=== PATIENT | female | born 1995 | race Caucasian/White ===

== ENCOUNTER 2024-06-10 15:01 | Inpatient (IN) | payer OTHER, SELFPAY ==
--- NOTE | ~2024-06-10 | XR_ITS ---
EXAMINATION: XR CHEST CLINICAL INFORMATION: Screening for metal objects prior to MRI COMPARISON: None available. TECHNIQUE: 2 views of the chest were obtained. FINDINGS: Chest willa catheter projects over the cavoatrial junction, unclear if this is MRI compatible. Lungs are clear. No effusion or pneumothorax. Cardiomediastinal silhouette is within normal limits. XR/XR chest 2V IMPRESSION: Chest willa catheter projects over the cavoatrial junction, unclear if this is MRI compatible.
--- NOTE | ~2024-06-10 | CT_ITS ---
EXAMINATION: CT cervical spine wo IV con, CT head/brain wo IV con CLINICAL INFORMATION: Reason for Exam syncope, head strike COMPARISON: Same-day CT head TECHNIQUE: Contiguous axial imaging was performed from the skull base to vertex without intravenous contrast. Sagittal and coronal reformatted images were obtained. Additional dedicated CT scan of the cervical spine was performed with coronal and sagittal reformations provided. This CT examination was performed using dose optimization techniques as appropriate, variously including the following: * Automated exposure control * Adjustment of mA and/or kV according to patient size (this includes techniques or standardized protocols for targeted exams where dose is matched to indication/reason for exam; i.e. extremities or head) Use of iterative reconstruction technique DLP: 202+612 mGy-cm FINDINGS: CT HEAD: There is no evidence of acute intracranial hemorrhage. No mass-effect or ventricular shift is noted. No acute, territorial loss of george-white differentiation. The ventricles and sulci are appropriate in size and configuration for the patient's stated age. No depressed calvarial fracture. The paranasal sinuses are well-aerated. The mastoid air cells are clear. CT CERVICAL SPINE: Reversal of the normal cervical lordosis which may be positional. No significant spondylolisthesis. Cervical vertebral body heights are maintained. No prevertebral soft tissue swelling. Partially visualized right internal jugular central venous catheter. Diffusely heterogeneous thyroid gland. CT/CT cervical spine wo IV con IMPRESSION: No acute intracranial hemorrhage. No acute, displaced cervical spine fracture.
--- NOTE | ~2024-06-10 | XR_ITS ---
EXAMINATION: XR ABDOMEN KUB CLINICAL INDICATION: screen for metal objects prior to MRI COMPARISON: None available. TECHNIQUE: AP view of the abdomen. FINDINGS: IUD in the central pelvis. The bowel gas pattern is normal with no evidence of ileus or obstruction. No unusual soft tissue calcifications are noted. The bones are unremarkable. XR/XR abdomen 1V IMPRESSION: Unremarkable examination.
--- NOTE | ~2024-06-10 | CT_ITS ---
EXAMINATION: CT HEAD WITHOUT CONTRAST CLINICAL INFORMATION: Altered mental status COMPARISON: None available. TECHNIQUE: Contiguous axial imaging was performed from the skull base to vertex without intravenous administration of contrast. This CT examination was performed using dose optimization techniques as appropriate, variously including the following: *Automated exposure control *Adjustment of mA and/or kV according to patient size (this includes techniques or standardized protocols for targeted exams where dose is matched to indication/reason for exam; i.e. extremities or head) *Use of iterative reconstruction technique DLP: 582 mGy-cm FINDINGS: Ventricles, sulci and cisterns are normal. There is no midline shift, no abnormal intra- or extra- axial fluid accumulation. Virk and white matter differentiation is normal. Bone window images show no evidence of skull fracture. CT/CT head/brain wo IV con IMPRESSION: 1. Normal CT scan of the brain. 2. No intracranial hemorrhage or skull fracture is seen. 3. No evidence of space occupying lesion could be found. 4. The current plain CT scan of the brain shows no diagnostic evidence of acute cerebral infarction.
--- NOTE | ~2024-06-10 | CT_ITS ---
EXAMINATION: CT cervical spine wo IV con, CT head/brain wo IV con CLINICAL INFORMATION: Reason for Exam syncope, head strike COMPARISON: Same-day CT head TECHNIQUE: Contiguous axial imaging was performed from the skull base to vertex without intravenous contrast. Sagittal and coronal reformatted images were obtained. Additional dedicated CT scan of the cervical spine was performed with coronal and sagittal reformations provided. This CT examination was performed using dose optimization techniques as appropriate, variously including the following: * Automated exposure control * Adjustment of mA and/or kV according to patient size (this includes techniques or standardized protocols for targeted exams where dose is matched to indication/reason for exam; i.e. extremities or head) Use of iterative reconstruction technique DLP: 202+612 mGy-cm FINDINGS: CT HEAD: There is no evidence of acute intracranial hemorrhage. No mass-effect or ventricular shift is noted. No acute, territorial loss of george-white differentiation. The ventricles and sulci are appropriate in size and configuration for the patient's stated age. No depressed calvarial fracture. The paranasal sinuses are well-aerated. The mastoid air cells are clear. CT CERVICAL SPINE: Reversal of the normal cervical lordosis which may be positional. No significant spondylolisthesis. Cervical vertebral body heights are maintained. No prevertebral soft tissue swelling. Partially visualized right internal jugular central venous catheter. Diffusely heterogeneous thyroid gland. CT/CT head/brain wo IV con IMPRESSION: No acute intracranial hemorrhage. No acute, displaced cervical spine fracture.
--- NOTE | ~2024-06-10 | MR_ITS ---
EXAMINATION: MR BRAIN WITHOUT CONTRAST CLINICAL INFORMATION: Rule out central autoimmune process causing kristie, psych issues. COMPARISON: None available. TECHNIQUE: MRI of the brain was obtained using routine sequences without contrast. FINDINGS: There is no diffusion restriction. There is no intracranial hemorrhage, acute infarction, mass effect, or edema. Ventricles, sulci, and cisterns are normal in size and configuration for patient age. No shift of midline. There is a 4 mm focus of hemosiderin deposition in the left posterior putamen, with signal characteristics diagnostic for a small cavernous hemangioma. No surrounding edema. There are no white matter abnormalities. Midline structures appear normally formed. The pituitary gland appears normal. Posterior fossa structures appear normal. Cerebellar tonsils are appropriately located. Major flow voids are preserved within the skull base. The globes and orbital contents demonstrate no abnormalities. Paranasal sinuses are clear bilaterally. Nasal septum is midline without spur. The mastoids and tympanic cavities are normally aerated. Extracranial soft tissues demonstrate no abnormalities. No suspicious bone marrow changes are evident. Atlantoaxial joint is normal. MR/MR head/brain wo con IMPRESSION: 1. No evidence of intracranial hemorrhage, acute infarction, mass effect, edema, or extra-axial fluid collection. 2. No white matter abnormalities. 3. 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 There is no surrounding edema. Electronically signed by: Geovanny Cota MD 06/29/2024 03:04 PM EDT
[2024-06-10 15:10] VITALS: BP 111/63; BP 114/72; PULSE 106; PULSE 112; RESP 14; TEMP 36.8; O2SAT 95; O2SAT 98; BMI 22.0
--- NOTE | 2024-06-10 15:19 | PC.NURSE ---
Pt. minimally responsive, staring off. Will not respond to questions other than HI/SI question
--- NOTE | 2024-06-10 15:30 | PC.NURSE ---
Pt.'s mother and father at bedside. Kathrin Krishna also at bedside as sitter. This RN explained to pt.'s mother that we need to change pt. over into hospital scrubs. Pt.'s mother refused, stating that her daughter will not be having a Psych. evaluation. aware
--- NOTE | 2024-06-10 15:58 | ED.GENADULT ---
HPI - General Adult General Chief complaint: Psychiatric Symptoms Stated complaint: AMS Time Seen by Provider: 06/10/24 15:56 Source: patient, family (patient's mother) and EMS Mode of arrival: EMS Limitations: other (patient is acutely psychotic) History of Present Illness ED Provider: Rosie Shirley PA-C HPI narrative: Patient is a 28 year old assigned female at with a history of bipolar disorder presenting to the emergency department today in an acute psychosis. Patient's mother states that the patient has an extensive psychiatric history and has not been compliant with her medications. Patient's mother states that she went to check on the patient and found her acting disoriented. Patient's mother states that she was concerned the patient may have taken too much of some of her medicines and wanted her to be medically cleared. Patient's mother states that the patient has extensive trauma in relation to intuitions and being institutionalized. Patient's mother states that they would like the patient to be medically evaluated and discharged into their care so they may get her back on her medication at home. Patient's mother states that the patient is supposed to be on Zyprexa 5mg BID and has good follow up with her psychiatrist. Relieving factors: none Exacerbating factors: none Related Data Allergies Allergy/AdvReac Type Severity Reaction Status Date / Time No Known Allergies Allergy Verified 06/10/24 15:16 Review of Systems Review of Systems: Yes Other (patient unable to answer ROS secondary to an acute psychosis) Neurologic: Reports behavioral changes Psychiatric: Psychiatric: Reports behavioral changes PMFSH Past Medical History Attestation statement: The following information was validated with the patient. (all information validated with the patient's parents / mother) Source: old records reviewed, obtained from family (patient's mother / parents provided additional history and confirmed the history provided by the patient) and nursing notes reviewed Social History Social History Smoked in Last 30 Days: No Use of substances other than those prescribed or required for medical reasons: No Advance Directives: No Advance Directives Information Provided: No Do you have a plan to hurt others: No Plan Physical Exam ED Vital Signs: Vital Signs - 24 hr 06/10/24 15:10 06/10/24 16:00 06/10/24 18:00 Temperature 98.2 F Pulse Rate 112 H 95 118 H Respiratory Rate 14 18 Blood Pressure 111/63 112/76 121/76 Pulse Oximetry 98 97 97 Oxygen Delivery Method Room Air Room Air Room Air BMI result Body Mass Index 22.0 Const General: cooperative, no acute distress, alert and awake Nutritional Appearance: well nourished Limitations: no limitations HENMT Head: Yes normal to inspection and Yes atraumatic Ears: hearing grossly normal bilaterally and external ears normal General nose exam: Normal external nose present, no nasal discharge noted and no epistaxis Face and sinus: Yes normal facial exam, No abrasion and No laceration Mouth: Normal oral and palatal mucosa present, no drooling and no muffled voice Eyes General: appearance normal, both eyes and all related structures Periorbital: periorbital findings normal Eyelids: Yes eyelids normal Conjunctivae: conjunctivae normal Pupils: Equal, round and reactive pupils present EOM: EOMs intact bilaterally Neck Neck: Yes normal visual inspection, Yes full ROM and Yes no lymphadenopathy Chest Chest palpation & inspection: normal inspection of the chest Resp Effort & Inspection: normal respiratory effort and able to speak in complete sentences GI Inspection: Yes normal to inspection Neuro General: moves all extremities Cranial nerves: Yes Equal, round and reactive pupils present Extrem General: Yes normal to inspection, Yes full ROM and Yes capillary refill normal Psych Appearance: grossly normal Affect: Labile affect present Attitude: Guarded attititude/behavior present Thought process: Circumstantial thought process present and Illogical thought process present Thought content: Derealization present Medications Administered Discontinued Medications Generic Name Dose Route Start Last Admin Trade Name Freq PRN Reason Stop Dose Admin Olanzapine 10 mg 06/10/24 17:48 06/10/24 19:18 Olanzapine 10 Mg Tablet PO 06/10/24 17:49 Not Given ONCE ONE Medical Decision Making Medical Decision Making [facility] Narrative: Patient is a 28 year old assigned female at with a history of bipolar disorder presenting to the emergency department today in an acute psychotic episode. Patient's physical exam was consistent with an acute psychosis. Patient's blood work was unremarkable. Patient's urine showed no acute process. Patient's EKG was unremarkable. I explained my physical exam findings as well as all test results to the patient and the patient's parents. I answered all questions asked by the patient and the patient's parents. I recommended the patient be evaluated by our CARE team and admitted for psychiatric inpatient level of care however, the patient and the patient's parents declined. I had an extensive conversation with the patient and the patient's parents about taking the patient home and getting her restarted on her medications including the risks in them doing this rather than having the patient stabilized on an inpatient unit. The patient's parents verbalized understanding and requested to take the patient home. We attempted to give the patient PO Zyprexa however, she refused to take it and began to escalate rapidly. After extensive discussion with the patient's parents and sister, together, we decided to give the patient IM Zyprexa and Ativan. Patient was given medication and walked to the behavioral health pod. Patient will be evaluated by CARE team and likely kept for inpatient psychiatric stabilization. Differential Diagnosis Differential Diagnoses: The differential diagnosis associated with the presentation includes Acute psychosis Bipolar disorder Medication non-compliance Admission/Observation Consideration of admission/observation: Escalation of care including admission/observation considered Patient will likely be admitted for psychiatric stabilization after CARE evaluation. Lab Data [facility] Lab Attestation statement: I reviewed the patient's lab results. My interpretation of these results are in the [facility] Rationale portion of this note. 06/10/24 16:07 06/10/24 16:07 Labs: Lab Results 06/10/24 06/10/24 Range/Units 16:07 17:35 WBC 9.7 (4.8-10.8) X10*3/uL RBC 4.44 (4.20-5.50) X10*6/uL Hgb 13.5 (12.0-16.0) g/dl Hct 39.6 (37.0-47.0) % MCV 89.2 (80.0-98.0) fL MCH 30.4 (27.0-33.0) pg MCHC 34.1 (31.0-35.0) g/dl RDW 12.6 (11.0-16.0) % Plt Count 286 (160-400) X10*3/uL MPV 10.3 (9.4-12.3) fL Immature Gran % (Auto) 0.4 (0.0-0.4) % Neut % (Auto) 72.8 (45-73) % Lymph % (Auto) 17.9 L (20-40) % [place] % (Auto) 7.0 (2-11) % Eos % (Auto) 1.5 (0-4) % Baso % (Auto) 0.4 (0-2) % Lymph # (Auto) 1.7 (1.2-4.9) X10*3/uL [place] # (Auto) 0.7 (0.1-1.2) X10*3/uL Eos # (Auto) 0.2 (0.0-0.4) X10*3/uL Baso # (Auto) 0.0 (0.0-0.2) X10*3/uL Abs Immat Gran (auto) 0.04 H (0.00-0.03) X10*3/uL Absolute Neuts (auto) 7.1 (2.0-8.3) x10*3/uL Absolute Nucleated RBC 0.000 (0.0-0.012) X10*3/uL Nucleated RBC % (auto) 0.0 (0.0-0.2) /100WBC Sodium 143 (135-145) mmol/L Potassium 4.4 (3.3-5.1) mmol/L Chloride 108 (96-108) mmol/L Carbon Dioxide 27 (22-29) mmol/L Anion Gap 12 (12-20) BUN 13 (9-16) mg/dL Creatinine 0.66 (0.5-1.4) mg/dL Estim Creat Clear Calc 81.2 Estimated GFR > 60 Random Glucose 129 H (60-115) mg/dL Calcium 8.9 (8.4-10.2) mg/dL Magnesium 2.3 (1.6-2.6) mg/dL Total Bilirubin 0.3 (0.0-1.0) mg/dL AST 43 H (5-31) U/L ALT 90 H (0-31) U/L Alkaline Phosphatase 94 (39-117) U/L Total Creatine Kinase 29 (26-140) U/L Total Protein 6.6 (6.5-8.0) g/dL Albumin 3.9 (3.5-5.0) g/dL TSH < 0.01 L (0.32-4.0) uIU/mL Free T4 1.17 (0.71-1.85) ng/dL Beta HCG, Quant < 2 mIU/mL Urine Opiates Screen Not Detected (Not Detect) Ur Buprenorphine Scrn Not Detected (Not Detect) ng/mL Ur Oxycodone Screen Not Detected (Not Detect) ng/mL Urine Methadone Screen Not Detected (Not Detect) ng/mL Urine Fentanyl Screen Not Detected (Not Detect) Ur Barbiturates Screen Not Detected (Not Detect) Ur Phencyclidine Scrn Not Detected (Not Detect) Ur Amphetamines Screen Not Detected (Not Detect) U Benzodiazepines Scrn Not Detected (Not Detect) Urine Cocaine Screen Not Detected (Not Detect) U Marijuana (THC) Screen Not Detected (Not Detect) COVID-19 (JULITA) Negative (Negative) COVID-19 Clin Com See Note Independent Interpretation I performed an independent interpretation of an: EKG Interpretation: Vent. Rate: 092 BPM Atrial Rate: 092 BPM P-R Int: 122 ms QRS Dur: 088 ms QT Int: 344 ms P-R-T Axes: 056 044 036 degrees QTc Int: 425 ms Normal sinus rhythm Normal ECG 06/10/24 1636 Independent Historian Clinical information obtained from an independent historian. History obtained from or confirmed by: Parent (patient's parents and sister provided additional history) and EMS (EMS provided additional history) Critical Care Time Critical Care Time Critical Care Time: Yes Total Critical Care Time: 48 Attestation: I spent 48 minutes of Critical Care Time with this patient. This does not include time spent on separately reported billable procedures. Discharge Plan Discharge Clinical Impression: Bipolar disorder, Acute psychosis Patient Disposition: Still a Patient Print Language: Romansh
[2024-06-10 16:00] VITALS: BP 112/76; PULSE 95; O2SAT 97
--- NOTE | 2024-06-10 16:08 | PC.NURSE ---
Pt. with parents and sitter at bedside. She is still not answering questions for the most part. Occasionally nods yes/no.
[2024-06-10 16:12] LABS: MANUAL DIFF FLAG NO
[2024-06-10 16:19] LABS: Basophils Percent Auto 0.4 % (0-2); Eosinophils Absolute Auto 0.2 X10*3/uL (0.0-0.4); Eosinophils Percent Auto 1.5 % (0-4); Hematocrit 39.6 % (37.0-47.0); Hemoglobin 13.5 g/dl (12.0-16.0); Imm Gran Abs Auto 0.04 X10*3/uL (0.00-0.03); Imm Gran Pct Auto 0.4 % (0.0-0.4); Lymphocytes Absolute Auto 1.7 X10*3/uL (1.2-4.9); Lymphocytes Percent Auto 17.9 % (20-40); Mean Corpuscular HGB Conc 34.1 g/dl (31.0-35.0); Mean Corpuscular Hemoglobin 30.4 pg (27.0-33.0); Mean Corpuscular Volume 89.2 fL (80.0-98.0); Mean Platelet Volume 10.3 fL (9.4-12.3); Monocytes Absolute Auto 0.7 X10*3/uL (0.1-1.2); Neutrophils Absolute Auto 7.1 x10*3/uL (2.0-8.3); Neutrophils Percent Auto 72.8 % (45-73); Platelet Count 286 X10*3/uL (160-400); Red Blood Count 4.44 X10*6/uL (4.20-5.50); Red Cell Distribution Width 12.6 % (11.0-16.0); White Blood Count 9.7 X10*3/uL (4.8-10.8)
[2024-06-10 16:25] LABS: COVID-19 Test Negative (Negative); IDNOW Serial# 58CA691E
[2024-06-10 16:39] LABS: Anion Gap 12 (12-20)
[2024-06-10 16:43] LABS: Alanine Aminotransferase 90 U/L (0-31); Albumin Level 3.9 g/dL (3.5-5.0); Alkaline Phosphatase 94 U/L (39-117); Aspartate Amino Transferase 43 U/L (5-31); Bilirubin Total 0.3 mg/dL (0.0-1.0); Blood Urea Nitrogen 13 mg/dL (9-16); Calcium 8.9 mg/dL (8.4-10.2); Carbon Dioxide 27 mmol/L (22-29); Chloride 108 mmol/L (96-108); Creatinine Clr Calc Pharmacy 81.2; Estimated Glomerular Filt Rate > 60; Glucose Random 129 mg/dL (60-115); Magnesium 2.3 mg/dL (1.6-2.6); Potassium 4.4 mmol/L (3.3-5.1); Sodium 143 mmol/L (135-145); Total Protein 6.6 g/dL (6.5-8.0)
--- NOTE | 2024-06-10 16:44 | PC.NURSE ---
EKG done at 16:36 - showed to Edi Shirley PA
[2024-06-10 17:04] LABS: HCG Quantitative < 2 mIU/mL; TSH reflex Free T4 < 0.01 uIU/mL (0.32-4.0)
[2024-06-10 17:34] LABS: Free T4 (Free Thyroxine) 1.17 ng/dL (0.71-1.85)
[2024-06-10 17:53] LABS: Amphetamine Screen Urine Not Detected (Not Detect); Barbiturates, Urine Not Detected (Not Detect); Benzodiazepines Screen Urine Not Detected (Not Detect); Buprenorphine Scr Not Detected (Not Detect); Cannabinoid Screen Urine Not Detected (Not Detect); Cocaine Screen Urine Not Detected (Not Detect); Fentanyl, urine Not Detected (Not Detect); Methadone Screen, Urine Not Detected (Not Detect); Opiate Screen Urine Not Detected (Not Detect); Oxycodone Screen Urine Not Detected (Not Detect); Phencyclidine Screen Urine Not Detected (Not Detect)
[2024-06-10 18:00] VITALS: BP 121/76; PULSE 118; RESP 18; O2SAT 97
--- NOTE | 2024-06-10 18:08 | ECG_ITS ---
Test Reason : tachycardia Blood Pressure : / mmHG Vent. Rate : 092 BPM Atrial Rate : 092 BPM P-R Int : 122 ms QRS Dur : 088 ms QT Int : 344 ms P-R-T Axes : 056 044 036 degrees QTc Int : 425 ms Normal sinus rhythm Normal ECG No previous ECGs available Referred By: Rosie Shirley Electronically Signed By:NIRALI SPARKS MD
--- NOTE | 2024-06-10 18:30 | PC.NURSE ---
Pt. will not take PO Zyprexa. Parents and PA at bedside. Continues with delusions. Pt. is on the phone with her sister to try to calm her down, and has been for appx. 45 mins.
--- NOTE | 2024-06-10 19:12 | PC.NURSE ---
Pt. would not take PO Zyprexa after appx. 45 minutes of trying. Pt. suddenly had outburst, lept over her bedrail and backed herself into corner. Began screaming at the top of her lungs about satan. Completely unable to be redirected. Per verbal orders of LAI Barbosa, 2mg of IM Ativan and 5mg of IM Zyprexa at 18:36 and OK to hold pt. for injections per PA verbal because she is thrashing, kicking, screaming. Security, multiple RNs, ED technicians, PA at bedside. Staff remained at bedside with pt. constantly until transfer to pod. Unable to get updated VS because pt. was too aggressive and thrashing. After medication administered, pt. very slightly calmed down but continued to try to bolt and hit staff. Pt. threw herself down to ground attempting to crawl under bed. older worker specialist Genevieve bunn and pt. then moved to pod. Pt.'s IV access removed and changed over into scrubs immediately upon arrival to pod.
--- NOTE | 2024-06-10 19:45 | PC.NURSE ---
patient slumbering in room presently d/t recent im medications, father visiting (from [place]) mother in waiting room, patient remains at rest presentlty.
--- NOTE | 2024-06-10 20:39 | MHC.CARE ---
[facility] met with patient's parents per request of LAI Polanco. Parents explained that they had arrived from their home in [place] with the intention of assisting patient with packing her things and moving back home. Patient currently resides in [place] and has been attending graduate school here. Mother notes patient has been having extensive difficulties/changes recently, particularly after receiving an Autism diagnosis. Patient recently made the decision to disenroll from her PsyD Program due to inability to manage her studies effectively. Parents believe this was a major precipitant factor in her recent non-compliance with psychiatric medications and subsequent and significant decompensation leading to her current acute psychosis. Once parents arrived here, they recognized patient was in crisis and they proceeded to the ED for evaluation and treatment. It is noted that patient has an extensive psychiatric history with some associated institutional trauma resultant from one of those admissions. Mother is very fearful of patient being re-traumatized by an [facility] admission and is very hesitant to see patient admitted to the hospital. [facility] provided active listening, encouragement, and support to parents. Contact information: Patient's mother: Carley Zhou [phone] Patient's Father:Boston Chan [phone] Pateint's Psychiatrist: Dr. Johanny Mireles [phone] She has been treating patient since she was a teenager.
[2024-06-11] VITALS (7 sets, daily range): BP systolic 105–131; BP diastolic 60–83; PULSE 90–135; RESP 15–20; TEMP 36.8–37.6; O2SAT 95–98; BMI 26.2
--- NOTE | 2024-06-11 | ECG_ITS ---
Test Reason : sycnope Blood Pressure : / mmHG Vent. Rate : 121 BPM Atrial Rate : 121 BPM P-R Int : 128 ms QRS Dur : 088 ms QT Int : 308 ms P-R-T Axes : 051 035 030 degrees QTc Int : 437 ms Sinus tachycardia Otherwise normal ECG When compared with ECG of 10-JUN-2024 16:36, No significant change was found Referred By: Rai Otoole Electronically Signed By:NIRALI SPARKS MD
--- NOTE | 2024-06-11 05:30 | PC.NURSE ---
Pt sleeping at the bedside. No apparent distress noted. Breaths are even regular and unlabored with equal chest rises. Monitoring is ongoing.
--- NOTE | 2024-06-11 08:21 | PHA.MEDREC ---
Pharmacy Consult ? Medication Reconciliation Pharmacy has completed the medication reconciliation. Pharmacy attempted med rec at request of provider from evening prior. Patient is AMS. Spoke to AM provider. Will contact pharmacy when patients family arrives.
[2024-06-11] MEDS: OLANZapine 5 MG TABLET PO ×2 (08:34→20:40)
--- NOTE | 2024-06-11 08:58 | PC.NURSE ---
pt awoke at approx 0730. has been very paranoid and becoming more and more agitated, pt states that the navy seals have switched her body, pt has been yelling about this since she awoke, pt initially refused her am zyprexa but eventually took it from Gianfranco Bennett from CARE team in with pt now for assessment
[2024-06-11] MEDS: LORazepam 2 MG/ML VIAL IM (09:30)
[2024-06-11] MEDS: Haloperidol Lactate 5 MG/ML VIAL IM (09:30)
[2024-06-11] MEDS: diphenhydrAMINE HCL 50 MG/ML VIAL IM (09:30)
[2024-06-11 12:49] LABS: Appearance Urine Turbid; Color Urine Yellow; Glucose Urine UA Negative (Negative); Leukocyte Esterase Urine Negative (Negative); Nitrite Urine Negative (Negative); PH 7.5 (5.0-9.0); Urine Blood Negative (Negative); Urine Ketones Negative (Negative); Urine Protein Negative (Neg-Trace)
--- NOTE | 2024-06-11 12:55 | PC.NURSE ---
at 0930 pt medicated with IM ativan, haldol and benadryl. pt had become increasingly agitated and delusional throughout the morning. pt was held in sitting position by security and given the im meds, pt was stating that the [employer] seals had switched her body and was afraid that someone would come and hurt her. approx 15 min after the meds, the pt was laying in her bed queitly and soon after, fell asleep. mother and father came to visit at approx 1000 and have been with the pt since. at [address] and currently awaiting results. report given to m3
[2024-06-11] MEDS: LORazepam 1 MG TABLET PO (15:43)
[2024-06-11] MEDS: OLANZapine 10 MG TABLET PO (15:47)
--- NOTE | 2024-06-11 16:17 | P.HPPS_ITS ---
HPI Date of Service: 06/11/24 Chief Complaint: kristie/psychosis HPI Narrative: pt was BIBA at the request of her parents, who had come out to visit her from [place] and found her in a concerning mental status, described as disoriented. per parents, pt has substantial psych Hx and was suspected to have stopped taking her medications. mother reports decline over the past 8 months including weight loss of 40 pounds, which coincides with ASD Dx pt received. pt has steadily withdrawn from family and friends, per mother. on interview with CARE team, pt was agitated, labile, paranoid, pressured, and disorganized. she was apparently extemporizing regarding a global conspiracy involving [employer] in which they swap people out, a la Capgras Syndrome. she also believes she has a brain tumor. poor ADLs noted, not having bathed in about one month. per mother, there is no precedent for this presentation. parents had come to pack her up and take her back home with them. parents identify autism Dx leading to demoralization and cessation of medication compliance, leading to inability to manage studies, leading to withdrawal from degree program, leading to further deterioration in mental status to the present. interview with MD on unit limited due to pt's inability to attend. pt was generally disorganized spontaneously but was able to answer some questions as per MSE. sample: my dad and sister are missing. i thought your father was here 5 minutes ago? my other father. no, he's not missing. but my sister is. none of this is real. another sample: what medications were you taking? over a million years. pt appeared to agree to plan to restart prior regimen, asked for something to help her go to sleep and started crying, saying she was feeling very anxious. Past Psychiatric History: Dx Hx: Bipolar Disorder, Autism hosps: h/o. first at 16 yo and MRE around 2019. SA: none SIB: none reported HIB: none reported outpt: h/o, extensive. starting in 8th grade with Dr. Mireles ([phone]). h/o therapy, most recently in [place] 8-9 months ago. Medical Evaluation Reviewed: Yes PMFSH Narrative: per mother: 5 auto-immune diseases Family History: father - bipolar disorder Social History: born and raised by both parents in [place], [place]. 1 sister who is 2 years younger. has bachelor's and masters' degrees, was enrolled in PsyD program until withdrawing recently. lives alone in a house in [place], [place]. never , no children. 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 landlords have asked pt to leave. parents have come to help her move back to their home in [place]. Substance History: none Trauma History: reported h/o other pts entering her room in the night during prior hospitalization, one episode of another patient getting into bed with her. Diagnostics Vital Signs (24Hr): Vital Signs - 24 hr 06/10/24 18:00 06/11/24 06:13 06/11/24 07:51 Temperature 98.4 F 98.2 F Pulse Rate 118 H 90 122 H Respiratory Rate 18 15 20 Blood Pressure 121/76 110/72 115/76 Pulse Oximetry 97 98 96 Oxygen Delivery Method Room Air Room Air Room Air 06/11/24 13:02 Temperature Pulse Rate 107 H Respiratory Rate 16 Blood Pressure 111/60 Pulse Oximetry 98 Oxygen Delivery Method Room Air BMI result Body Mass Index 22.0 Labs 06/10/24 16:07 06/10/24 16:07 Labs: Laboratory Results - last 48 hr 06/10/24 06/10/24 16:07 17:35 WBC 9.7 RBC 4.44 Hgb 13.5 Hct 39.6 MCV 89.2 MCH 30.4 MCHC 34.1 RDW 12.6 Plt Count 286 MPV 10.3 Immature Gran % (Auto) 0.4 Neut % (Auto) 72.8 Lymph % (Auto) 17.9 L [place] % (Auto) 7.0 Eos % (Auto) 1.5 Baso % (Auto) 0.4 Lymph # (Auto) 1.7 [place] # (Auto) 0.7 Eos # (Auto) 0.2 Baso # (Auto) 0.0 Abs Immat Gran (auto) 0.04 H Absolute Neuts (auto) 7.1 Absolute Nucleated RBC 0.000 Nucleated RBC % (auto) 0.0 Sodium 143 Potassium 4.4 Chloride 108 Carbon Dioxide 27 Anion Gap 12 BUN 13 Creatinine 0.66 Estim Creat Clear Calc 81.2 Estimated GFR > 60 Random Glucose 129 H Calcium 8.9 Magnesium 2.3 Total Bilirubin 0.3 AST 43 H ALT 90 H Alkaline Phosphatase 94 Total Creatine Kinase 29 Total Protein 6.6 Albumin 3.9 TSH < 0.01 L Free T4 1.17 Beta HCG, Quant < 2 Urine Color Yellow Urine Appearance Turbid Urine pH 7.5 Ur Specific [place] 1.010 Urine Protein Negative Urine Glucose (UA) Negative Urine Ketones Negative Urine Blood Negative Urine Nitrite Negative Ur Leukocyte Esterase Negative Urine Opiates Screen Not Detected Ur Buprenorphine Scrn Not Detected Ur Oxycodone Screen Not Detected Urine Methadone Screen Not Detected Urine Fentanyl Screen Not Detected Ur Barbiturates Screen Not Detected Ur Phencyclidine Scrn Not Detected Ur Amphetamines Screen Not Detected U Benzodiazepines Scrn Not Detected Urine Cocaine Screen Not Detected U Marijuana (THC) Screen Not Detected COVID-19 (JULITA) Negative COVID-19 Clin Com See Note Imaging Radiology Impressions: ITS Impressions Head CT 06/11/24 11:34 IMPRESSION: 1. Normal CT scan of the brain. 2. No intracranial hemorrhage or skull fracture is seen. 3. No evidence of space occupying lesion could be found. 4. The current plain CT scan of the brain shows no diagnostic evidence of acute cerebral infarction. Meds/Allergies Allergies Allergies Allergy/AdvReac Type Severity Reaction Status Date / Time No Known Allergies Allergy Verified 06/10/24 15:16 Mental Status Exam Mental Status Exam Narrative: dressed in [facility] [employer]. disheveled. cooperative to her ability. standing throughout, talking to the unseen. speech spontaneous, not generally related present context, incr amount, nml rate, nml loudness, decr latency. thoughts distracted, related to AH. able to answer some questions with delay and difficulty, but such answers linear. affect constricted, tearful. mood agitated. panicked. panicked into oblivion all the time. SI a little bit, buti won't do anything. denies HI, VH. endorses AH. Assessment & Plan Assessment & Plan (1) Acute psychosis: Status: Acute Code(s): F23 - Brief psychotic disorder (2) Bipolar disorder: Status: Acute Code(s): F31.9 - Bipolar disorder, unspecified Plan restart previous med regimen, assuming it is reasonable and if collateral bears out that it was effective. zyprexa and ativan for now. Patient educated on: diagnosis and medication risk/benefits Reason for continued inpatient stay Substantial Risk for: harm to self and inability to function Statement Statement: I have reviewed the history and physical and performed a pertinent examination on my patient. No changes have occurred unless specified. If the History and Physical was not performed prior to admission, the Hospitalist's service will be consulted for completing the admission physical. Time Spent With Patient Time: Total time managing care of this patient today _55___ minutes.
--- NOTE | 2024-06-11 16:56 | PM.EVENT ---
Event Note Date of Service: 06/11/24 Event Note: CLAIMS CONFIGURATION ANALYST called for witnessed syncope, patient felt lightheaded, hit head, ?forehead. brief LOC. denies pain, dazed but alert, no gross trauma, vitals stable, poc wnl. plan for ekg, ct head, ct cervical spine. Time Spent With Patient Time: Total time managing care of this patient today ____ minutes.
--- NOTE | 2024-06-11 17:44 | PC.ADMIT ---
Addendum entered by Joanna Ortega RN 06/11/24 18:02: Nursing note continued: Patient unable to be assessed fully at this time due to current mental status. Patient believes she has a brain tumor . Thoughts are disorganized and delusional. Observed responding to internal stimuli. Speech is soft in tome with decreased volume. Cooperative with skin check, small scratches observed on neck otherwise unremarkable. NKA. Per crisis evaluation hx of Crohn's, and 5 autoimmune disorders. TOX screen negative. COVID negative. History of Autism, BiPolar disorder. Patient with history of mental illness, inpatient and outpatient therapy. Patient oriented to unit. See crisis evaluation for further details. Original Note: Nursing admission note: 28 year old female Dx: Unspecified psychosis. Arrived to unit on section 12a. Referred for treatment by CARE team. Patient disoriented to date. Limited insight into admission. patient engages minimally. States I am not who you think I am . Endorses feeling anxious, scared. Reports at times she sleeps a lot .States I need to go find my family. They're going to be taking the wrong child. I need to find my sister Iram. Joie is not real . Per crisis evaluation Patient arrived to ED via ambulance with her parents. Patient's mother found her acting in a disoriented fashion. ,
[2024-06-11 17:46] LABS: Glucose, Whole Blood 127 mg/dL (60-115)
--- NOTE | 2024-06-11 19:40 | PC.NURSE ---
At 1648 pt was on the patient phone speaking to family member and per peer she fell to floor with head strike. Rapid response called. temp 37.6 c HR 120 BP 109/77 POC 127 O2 sat 95% room air. She did not immediately respond to her name or nurses' touch. She was transported to CT scan per MD order with Neck brace in place, placed on 1:[address] scan results. On return from CT patient was ambulating without difficulty and denied injury.
[2024-06-11] MEDS: Lithium Carbonate ER 450 MG TABLET.ER 900 MG PO (20:40)
[2024-06-11] MEDS: hydrOXYzine HCL 25 MG TABLET PO (20:41)
[2024-06-12 00:05] VITALS: RESP 16
[2024-06-12 04:00] VITALS: RESP 16
[2024-06-12 08:00] VITALS: BP 129/81; PULSE 92; TEMP 37; O2SAT 97
[2024-06-12 08:24] LABS: Hemoglobin 15.4 g/dl (12.0-16.0); Mean Corpuscular HGB Conc 34.2 g/dl (31.0-35.0); Mean Corpuscular Hemoglobin 30.3 pg (27.0-33.0); Mean Corpuscular Volume 88.6 fL (80.0-98.0); Platelet Count 316 X10*3/uL (160-400); Red Blood Count 5.08 X10*6/uL (4.20-5.50); Red Cell Distribution Width 12.4 % (11.0-16.0); White Blood Count 8.4 X10*3/uL (4.8-10.8)
[2024-06-12 08:34] LABS: Estimated Average Glucose 85 mg/dL; Hemoglobin A1c % 4.6 % (<6.0)
[2024-06-12 08:43] LABS: Alanine Aminotransferase 100 U/L (0-31); Albumin Level 4.3 g/dL (3.5-5.0); Alkaline Phosphatase 95 U/L (39-117); Anion Gap 13 (12-20); Aspartate Amino Transferase 50 U/L (5-31); Bilirubin Direct 0.1 mg/dL (0.0-0.5); Bilirubin Total 0.5 mg/dL (0.0-1.0); Blood Urea Nitrogen 15 mg/dL (9-16); Calcium 10.5 mg/dL (8.4-10.2); Carbon Dioxide 28 mmol/L (22-29); Chloride 105 mmol/L (96-108); Creatinine Clr Calc Pharmacy 83.7; Estimated Glomerular Filt Rate > 60; Glucose Fasting 100 mg/dL (60-99); Magnesium 2.3 mg/dL (1.6-2.6); Potassium 4.4 mmol/L (3.3-5.1); Sodium 142 mmol/L (135-145); Total Protein 7.6 g/dL (6.5-8.0)
[2024-06-12 08:46] LABS: Cholesterol 213 mg/dL (<200); HDL Cholesterol 75 mg/dL (>40); LDL Cholesterol Calculated 122 mg/dL (<100); Triglycerides 80 mg/dL (<150)
[2024-06-12 09:02] LABS: HBS Num1 3.41 mIU/mL (0-7.99); HBc Num1 0.11 S/CO (0.00-0.79); HBsAGNum1 0.26 S/CO (0.00-0.99); HIV AB/AG Nonreactive (Nonreactive); HIV Num 1 0.06 S/CO (0.00-0.99); Hepatitis B Core Antibody Nonreactive (Nonreactive); Hepatitis B Surface Antigen Negative (Negative); ~HepC Num1 0.12 S/CO (0.00-0.79); ~Hepatitis B Surface Antibody NONREACTIVE (Nonreactive); ~Hepatitis C Antibody Nonreactive (Nonreactive)
[2024-06-12 09:03] LABS: Free T4 (Free Thyroxine) 1.22 ng/dL (0.71-1.85); Thyroid Stimulating Hormone < 0.01 uIU/mL (0.32-4.0)
[2024-06-12 09:12] LABS: Folate 9.6 ng/mL (> or = 4.0); Vitamin B12 318 pg/mL (200-900)
[2024-06-12] MEDS: OLANZapine ODT 10 MG TAB.RAPDIS 5 MG TRANSLINGU ×2 (11:27→23:56)
[2024-06-12] MEDS: LORazepam 1 MG TABLET PO ×2 (11:28→23:56)
--- NOTE | 2024-06-12 15:08 | P.PNPSI_ITS ---
Subjective Subjective Date of Service: 06/12/24 Reason For Visit: kristie/psychosis Interim History: met with pt individually, met with parents as well. pt remains pressured, RIS, disorganized. per staff, pt fell last night while on the phone. CT head NEG. appeared to have slept overnight. information gleaned from meeting with parents: pt has medical diagnoses as follows: Crohn's Dz, Lawrence's Thyroiditis, Auto- Immune Hepatitis, Reynaud Syndrome, SLE-like disorder, POTS. her auto-immune D/O Dxs started at 15-16 yo and she was on remicaid for about 10 years from that time until about 25 yo. she has been on other immunologics since until recently stopping all medications in the past several months. pt's pharmacy is [facility] in [place]. per collateral from pharmacy, pt should be on the following: zyprexa 5 mg BID mycophenolate 1000 mg BID lithium 600 mg BID aimovig 140mg/ml, 1 ml Q28 days SC synthroid 37.5 mcg daily fludrocortisone 0.1 mg daily metoprolol ER 50 mg daily Mental Status Exam Mental Status Exam Narrative: dressed in [facility]. disheveled. cooperative to her ability. standing throughout, talking to the unseen. speech spontaneous, not generally related present context, incr amount, incr rate, variable loudness, decr latency. thoughts distracted, related to AH. able to answer some questions with delay and difficulty, but such answers linear. affect constricted, hyper-intense. mood not assessed. no SI/HI/AVH expressed. Diagnostics Vital Signs (24Hr): Vital Signs - 24 hr 06/11/24 18:24 06/11/24 18:40 06/11/24 20:00 Temperature 99.6 F 98.6 F 98.8 F Pulse Rate 120 H 97 117 H Respiratory Rate 16 16 Blood Pressure 109/77 109/67 131/83 Pulse Oximetry 95 97 96 Oxygen Delivery Method Room Air Room Air 06/12/24 00:05 06/12/24 04:00 06/12/24 08:00 Temperature 98.6 F Pulse Rate 92 Respiratory Rate 16 16 Blood Pressure 129/81 Pulse Oximetry 97 Oxygen Delivery Method Room Air BMI result Body Mass Index 26.2 Labs 06/12/24 08:03 06/12/24 08:03 Labs: Laboratory Results - last 48 hr 06/10/24 06/10/24 06/11/24 16:07 17:35 16:50 WBC 9.7 RBC 4.44 Hgb 13.5 Hct 39.6 MCV 89.2 MCH 30.4 MCHC 34.1 RDW 12.6 Plt Count 286 MPV 10.3 Immature Gran % (Auto) 0.4 Neut % (Auto) 72.8 Lymph % (Auto) 17.9 L [place] % (Auto) 7.0 Eos % (Auto) 1.5 Baso % (Auto) 0.4 Lymph # (Auto) 1.7 [place] # (Auto) 0.7 Eos # (Auto) 0.2 Baso # (Auto) 0.0 Abs Immat Gran (auto) 0.04 H Absolute Neuts (auto) 7.1 Absolute Nucleated RBC 0.000 Nucleated RBC % (auto) 0.0 Sodium 143 Potassium 4.4 Chloride 108 Carbon Dioxide 27 Anion Gap 12 BUN 13 Creatinine 0.66 Estim Creat Clear Calc 81.2 Estimated GFR > 60 POC Glucose 127 H Random Glucose 129 H Fasting Glucose Estimat Average Glucose Hemoglobin A1c % Calcium 8.9 Magnesium 2.3 Total Bilirubin 0.3 Direct Bilirubin AST 43 H ALT 90 H Alkaline Phosphatase 94 Total Creatine Kinase 29 Total Protein 6.6 Albumin 3.9 Triglycerides Cholesterol LDL Cholesterol, Calc HDL Cholesterol Vitamin B12 Folate TSH < 0.01 L Free T4 1.17 Beta HCG, Quant < 2 Urine Color Yellow Urine Appearance Turbid Urine pH 7.5 Ur Specific [place] 1.010 Urine Protein Negative Urine Glucose (UA) Negative Urine Ketones Negative Urine Blood Negative Urine Nitrite Negative Ur Leukocyte Esterase Negative Urine Opiates Screen Not Detected Ur Buprenorphine Scrn Not Detected Ur Oxycodone Screen Not Detected Urine Methadone Screen Not Detected Urine Fentanyl Screen Not Detected Ur Barbiturates Screen Not Detected Ur Phencyclidine Scrn Not Detected Ur Amphetamines Screen Not Detected U Benzodiazepines Scrn Not Detected Urine Cocaine Screen Not Detected U Marijuana (THC) Screen Not Detected COVID-19 (JULITA) Negative COVID-19 Clin Com See Note Hep Bs Antigen Hep Bs Antibody Hep B Core Total Ab Hepatitis C Ab (EIA) HIV 1&2 Ab/P24 Ag 4thGn 06/12/24 08:03 WBC 8.4 RBC 5.08 Hgb 15.4 Hct 45.0 MCV 88.6 MCH 30.3 MCHC 34.2 RDW 12.4 Plt Count 316 MPV 10.0 Immature Gran % (Auto) Neut % (Auto) Lymph % (Auto) [place] % (Auto) Eos % (Auto) Baso % (Auto) Lymph # (Auto) [place] # (Auto) Eos # (Auto) Baso # (Auto) Abs Immat Gran (auto) Absolute Neuts (auto) Absolute Nucleated RBC 0.000 Nucleated RBC % (auto) 0.0 Sodium 142 Potassium 4.4 Chloride 105 Carbon Dioxide 28 Anion Gap 13 BUN 15 Creatinine 0.74 Estim Creat Clear Calc 83.7 Estimated GFR > 60 POC Glucose Random Glucose Fasting Glucose 100 H Estimat Average Glucose 85 Hemoglobin A1c % 4.6 Calcium 10.5 H D Magnesium 2.3 Total Bilirubin 0.5 Direct Bilirubin 0.1 AST 50 H ALT 100 H Alkaline Phosphatase 95 Total Creatine Kinase Total Protein 7.6 Albumin 4.3 Triglycerides 80 Cholesterol 213 H LDL Cholesterol, Calc 122 H HDL Cholesterol 75 Vitamin B12 318 Folate 9.6 TSH < 0.01 L Free T4 1.22 Beta HCG, Quant Urine Color Urine Appearance Urine pH Ur Specific [place] Urine Protein Urine Glucose (UA) Urine Ketones Urine Blood Urine Nitrite Ur Leukocyte Esterase Urine Opiates Screen Ur Buprenorphine Scrn Ur Oxycodone Screen Urine Methadone Screen Urine Fentanyl Screen Ur Barbiturates Screen Ur Phencyclidine Scrn Ur Amphetamines Screen U Benzodiazepines Scrn Urine Cocaine Screen U Marijuana (THC) Screen COVID-19 (JULITA) COVID-19 Clin Com Hep Bs Antigen Negative Hep Bs Antibody NONREACTIVE Hep B Core Total Ab Nonreactive Hepatitis C Ab (EIA) Nonreactive HIV 1&2 Ab/P24 Ag 4thGn Nonreactive Imaging Radiology Impressions: ITS Impressions Head CT 06/11/24 11:34 IMPRESSION: 1. Normal CT scan of the brain. 2. No intracranial hemorrhage or skull fracture is seen. 3. No evidence of space occupying lesion could be found. 4. The current plain CT scan of the brain shows no diagnostic evidence of acute cerebral infarction. Cervical Spine CT 06/11/24 17:25 IMPRESSION: No acute intracranial hemorrhage. No acute, displaced cervical spine fracture. Head CT 06/11/24 17:25 IMPRESSION: No acute intracranial hemorrhage. No acute, displaced cervical spine fracture. Medications Medications Current Medications Acetaminophen (Acetaminophen 325 Mg Tablet) 650 mg PO Q6H PRN PRN Reason: Headache/Pain Mild Scale (1-3) Al Hydroxide/Mg Hydroxide (Magnesium Hydrox/Alum Hydrox 30 Ml Oral.Susp) 30 ml PO Q6H PRN PRN Reason: Heartburn/Nausea Fludrocortisone Acetate (Fludrocortisone Acetate 0.1 Mg Tablet) 0.1 mg PO QAM [facility] Hydroxyzine HCl (Hydroxyzine Hcl 25 Mg Tablet) 25 mg PO Q6H PRN PRN Reason: Anxiety Last Admin: 06/11/24 20:41 Dose: 25 mg Levothyroxine Sodium (Levothyroxine Sodium 25 Mcg Tablet) 25 mcg PO DAILY@0600 [facility] [employer] Carbonate ([employer] Carbonate Er 300 Mg Tablet.Er) 600 mg PO BID [facility] Lorazepam (Lorazepam 1 Mg Tablet) 1 mg PO Q4H PRN PRN Reason: agitation Last Admin: 06/12/24 11:28 Dose: 1 mg Magnesium Hydroxide (Milk Of Magnesia 30 Ml Oral.Susp) 30 ml PO DAILY PRN PRN Reason: Constipation Metoprolol Succinate (Metoprolol Succinate Er 25 Mg Tab.Er.24h) 25 mg PO DAILY [facility]; Protocol Mycophenolate Mofetil (Mycophenolate Mofetil 250 Mg Capsule) 1,000 mg PO BID [facility] Nicotine Polacrilex (Nicotine Polacrilex 2 Mg Gum) 4 mg BUCCAL Q2H PRN PRN Reason: Nicotine Cravings Non-Formulary Medication (Aimovig) 140 mg SUBCUT ONCE ONE Stop: 06/12/24 15:08 Olanzapine (Olanzapine Odt 10 Mg Tab.Rapdis) 5 mg TRANSLINGU Q4H PRN PRN Reason: agitation Last Admin: 06/12/24 11:27 Dose: 5 mg Olanzapine (Olanzapine 5 Mg Tablet) 5 mg PO BEDTIME MARQUES Last Admin: 06/11/24 20:40 Dose: 5 mg Allergies Allergies Allergy/AdvReac Type Severity Reaction Status Date / Time No Known Allergies Allergy Verified 06/10/24 15:16 Assessment & Plan Assessment & Plan (1) Acute psychosis: Status: Acute Code(s): F23 - Brief psychotic disorder (2) Bipolar disorder: Status: Acute Code(s): F31.9 - Bipolar disorder, unspecified (3) POTS (postural orthostatic tachycardia syndrome): Status: Acute Code(s): G90.A - Postural orthostatic tachycardia syndrome [POTS] (4) Crohn disease: Status: Acute Code(s): K50.90 - Crohn's disease, unspecified, without complications (5) Lawrence thyroiditis: Status: Acute Code(s): E06.3 - Autoimmune thyroiditis (6) Autoimmune hepatitis: Status: Acute Code(s): K75.4 - Autoimmune hepatitis (7) Raynaud disease: Status: Acute Code(s): I73.00 - Raynaud's syndrome without gangrene (8) SLE (systemic lupus erythematosus related syndrome): Status: Acute Code(s): M32.9 - Systemic lupus erythematosus, unspecified Plan 06/11: restart previous med regimen, assuming it is reasonable and if collateral bears out that it was effective. zyprexa and ativan for now. 06/12: met with parents, got meds list from pharmacy. verified father has bipolar disorder. 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 will restart medical regimen as well as psychiatric. kristie/psychosis may be as inherited from father or possibly immune-mediated. will address both potential etiologies simultaneously. Reason for continued inpatient stay Substantial Risk for: harm to self, inability to function and med/psych decompensation Time Spent With Patient Time: Total time managing care of this patient today __60__ minutes.
[2024-06-12 20:55] VITALS: BP 153/90; PULSE 126; RESP 16; TEMP 36.8; O2SAT 96
[2024-06-12] MEDS: mycophenolate mofetiL 250 MG CAPSULE 1000 MG PO (21:11)
[2024-06-12] MEDS: Lithium Carbonate ER 300 MG TABLET.ER 600 MG PO (21:12)
[2024-06-12] MEDS: hydrOXYzine HCL 25 MG TABLET PO (21:12)
[2024-06-12] MEDS: OLANZapine 5 MG TABLET PO (21:13)
--- NOTE | 2024-06-13 01:05 | PC.NURSE ---
06/13/24 At about 0100 pt was laying down in bed and began to have a nose bleed. Pt was able to control the bleeding shortly after by applying pressure to nose. No other complaints.
--- NOTE | 2024-06-13 01:35 | PC.NURSE ---
06/13/24 Pt had two outburst of increased agitation where she would run into a wall. Pt was redirected from not hurting herself. Pt reported hearing voices and I want my mom and dad to pick me up to go home I can't be here they are doing experiments. Kristine was notified.
[2024-06-13] MEDS: OLANZapine 5 MG TABLET PO (01:49)
[2024-06-13] MEDS: hydrOXYzine HCL 25 MG TABLET PO ×2 (06:55→21:03)
[2024-06-13] MEDS: LORazepam 1 MG TABLET PO ×4 (06:55→21:03)
[2024-06-13] MEDS: Levothyroxine Sodium 25 MCG TABLET PO (06:55)
[2024-06-13] MEDS: OLANZapine ODT 10 MG TAB.RAPDIS 5 MG TRANSLINGU ×2 (06:56→17:02)
[2024-06-13 08:58] LABS: Triiodothyronine T3 Total 134 ng/dL (76-181)
[2024-06-13 10:01] VITALS: BP 100/64; PULSE 77; RESP 16; TEMP 36.9; O2SAT 99
[2024-06-13] MEDS: Fludrocortisone Acetate 0.1 MG TABLET PO (10:04)
[2024-06-13] MEDS: Lithium Carbonate ER 300 MG TABLET.ER 600 MG PO ×2 (10:05→21:03)
[2024-06-13] MEDS: mycophenolate mofetiL 250 MG CAPSULE 1000 MG PO ×2 (10:05→21:03)
[2024-06-13] MEDS: Metoprolol Succinate ER 25 MG TAB.ER.24H PO (10:11)
--- NOTE | 2024-06-13 17:41 | P.PNPSI_ITS ---
Subjective Subjective Date of Service: 06/13/24 Reason For Visit: kristie/psychosis Interim History: more subdued than yesterday. less labile, less loud. continues pressured. per staff, self-dialoguing. taking PRNs. throwing self into aden. up until 0300. Mental Status Exam Mental Status Exam Narrative: dressed in hospital angelita. disheveled. cooperative to her ability. standing throughout, talking to the unseen, pacing. speech spontaneous, not generally related present context, incr amount, incr rate, decr loudness, decr latency. thoughts distracted, related to AH. able to answer some questions with delay and difficulty, but such answers linear. affect constricted, hyper-intense. mood not assessed. no SI/HI/AVH expressed. Diagnostics Vital Signs (24Hr): Vital Signs - 24 hr 06/12/24 20:55 06/13/24 10:01 Temperature 98.2 F 98.4 F Pulse Rate 126 H 77 Respiratory Rate 16 16 Blood Pressure 153/90 H 100/64 Pulse Oximetry 96 99 Oxygen Delivery Method Room Air Room Air BMI result Body Mass Index 26.2 Labs 06/12/24 08:03 06/12/24 08:03 Labs: Laboratory Results - last 48 hr 06/11/24 06/12/24 16:50 08:03 WBC 8.4 RBC 5.08 Hgb 15.4 Hct 45.0 MCV 88.6 MCH 30.3 MCHC 34.2 RDW 12.4 Plt Count 316 MPV 10.0 Absolute Nucleated RBC 0.000 Nucleated RBC % (auto) 0.0 Sodium 142 Potassium 4.4 Chloride 105 Carbon Dioxide 28 Anion Gap 13 BUN 15 Creatinine 0.74 Estim Creat Clear Calc 83.7 Estimated GFR > 60 POC Glucose 127 H Fasting Glucose 100 H Estimat Average Glucose 85 Hemoglobin A1c % 4.6 Calcium 10.5 H D Magnesium 2.3 Total Bilirubin 0.5 Direct Bilirubin 0.1 AST 50 H ALT 100 H Alkaline Phosphatase 95 Total Protein 7.6 Albumin 4.3 Triglycerides 80 Cholesterol 213 H LDL Cholesterol, Calc 122 H HDL Cholesterol 75 Vitamin B12 318 Folate 9.6 TSH < 0.01 L Free T4 1.22 Total T3 134 Hep Bs Antigen Negative Hep Bs Antibody NONREACTIVE Hep B Core Total Ab Nonreactive Hepatitis C Ab (EIA) Nonreactive HIV 1&2 Ab/P24 Ag 4thGn Nonreactive Imaging Radiology Impressions: ITS Impressions Head CT 06/11/24 11:34 IMPRESSION: 1. Normal CT scan of the brain. 2. No intracranial hemorrhage or skull fracture is seen. 3. No evidence of space occupying lesion could be found. 4. The current plain CT scan of the brain shows no diagnostic evidence of acute cerebral infarction. Cervical Spine CT 06/11/24 17:25 IMPRESSION: No acute intracranial hemorrhage. No acute, displaced cervical spine fracture. Head CT 06/11/24 17:25 IMPRESSION: No acute intracranial hemorrhage. No acute, displaced cervical spine fracture. Medications Medications Current Medications Acetaminophen (Acetaminophen 325 Mg Tablet) 650 mg PO Q6H PRN PRN Reason: Headache/Pain Mild Scale (1-3) Al Hydroxide/Mg Hydroxide (Magnesium Hydrox/Alum Hydrox 30 Ml Oral.Susp) 30 ml PO Q6H PRN PRN Reason: Heartburn/Nausea Fludrocortisone Acetate (Fludrocortisone Acetate 0.1 Mg Tablet) 0.1 mg PO DAILY [facility] Last Admin: 06/13/24 10:04 Dose: 0.1 mg Hydroxyzine HCl (Hydroxyzine Hcl 25 Mg Tablet) 25 mg PO Q6H PRN PRN Reason: Anxiety Last Admin: 06/13/24 06:55 Dose: 25 mg Levothyroxine Sodium (Levothyroxine Sodium 25 Mcg Tablet) 25 mcg PO DAILY@0600 [facility] Last Admin: 06/13/24 06:55 Dose: 25 mcg Ariton Carbonate (Ariton Carbonate Er 300 Mg Tablet.Er) 600 mg PO BID [facility] Last Admin: 06/13/24 10:05 Dose: 600 mg Lorazepam (Lorazepam 1 Mg Tablet) 1 mg PO Q4H PRN PRN Reason: agitation Last Admin: 06/13/24 17:02 Dose: 1 mg Magnesium Hydroxide (Milk Of Magnesia 30 Ml Oral.Susp) 30 ml PO DAILY PRN PRN Reason: Constipation Metoprolol Succinate (Metoprolol Succinate Er 25 Mg Tab.Er.24h) 25 mg PO DAILY [facility]; Protocol Last Admin: 06/13/24 10:11 Dose: 25 mg Mycophenolate Mofetil (Mycophenolate Mofetil 250 Mg Capsule) 1,000 mg PO BID [facility] Last Admin: 06/13/24 10:05 Dose: 1,000 mg Nicotine Polacrilex (Nicotine Polacrilex 2 Mg Gum) 4 mg BUCCAL Q2H PRN PRN Reason: Nicotine Cravings Non-Formulary Medication (Aimovig) 140 mg SUBCUT ONCE ONE Stop: 06/12/24 15:08 Olanzapine (Olanzapine Odt 10 Mg Tab.Rapdis) 5 mg TRANSLINGU Q4H PRN PRN Reason: agitation Last Admin: 06/13/24 17:02 Dose: 5 mg Allergies Allergies Allergy/AdvReac Type Severity Reaction Status Date / Time No Known Allergies Allergy Verified 06/10/24 15:16 Assessment & Plan Assessment & Plan (1) Acute psychosis: Status: Acute Code(s): F23 - Brief psychotic disorder (2) Bipolar disorder: Status: Acute Code(s): F31.9 - Bipolar disorder, unspecified (3) POTS (postural orthostatic tachycardia syndrome): Status: Acute Code(s): G90.A - Postural orthostatic tachycardia syndrome [POTS] (4) Crohn disease: Status: Acute Code(s): K50.90 - Crohn's disease, unspecified, without complications (5) Lawrence thyroiditis: Status: Acute Code(s): E06.3 - Autoimmune thyroiditis (6) Autoimmune hepatitis: Status: Acute Code(s): K75.4 - Autoimmune hepatitis (7) Raynaud disease: Status: Acute Code(s): I73.00 - Raynaud's syndrome without gangrene (8) SLE (systemic lupus erythematosus related syndrome): Status: Acute Code(s): M32.9 - Systemic lupus erythematosus, unspecified Plan 06/11: restart previous med regimen, assuming it is reasonable and if collateral bears out that it was effective. zyprexa and ativan for now. 06/12: met with parents, got meds list from pharmacy. verified father has bipolar disorder. 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 will restart medical regimen as well as psychiatric. kristie/psychosis may be as inherited from father or possibly immune-mediated. will address both potential etiologies simultaneously. 06/13: more subdued and slowed today than yesterday. poor sleep - increase HS zyprexa to 10 mg. 40 min call with family. check lyme titer. consult rheum, GI, hospitalist. continue current mgmt otherwise and observe for improvement. [facility] contacted, reported pt is no longer in their practice and hasn't been seen for more than a year. collateral provided by parent 06/13: So far I figured out that she was being treated by? [facility] GI phone number [phone] [facility] Neurology [phone] [facility] Rheumatology (Dr Chopra?) [phone] [facility] Medicine (Alaynapatric Langley?) ?[phone] [facility] Hepatology [phone] prescribe cellcept [facility] Dermatology [phone] Personal Care Service Provider Dr Harini Basilio [facility] ([facility]) [phone] Medical issues? Crohn's disease? W associated arthritis/arthralgia? Autoimmune hepatitis? 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 Lawrence's? POTS? Raynaud's? Erythromelalgia? Chronic migraines? TMJ? PCOS? Cavernous malformation? Positive antiphospholipid antibodies? Chostochondritis? Autism? Bipolar 2? Generalized anxiety disorder? Panic disorder? Claustrophobia? OCD? Atypical anorexia? ADHD?Sensory processing disorder We went through the medicine in Lisseth's home and this is what we found. I am not sure if this is everything.? Please let us know what else we can help with if anything. Please remember that you are going to have her checked for tick borne diseases.? ? ? Fludrocortisone 0.1 mt 1x day?Flovent [address] Xavi Barakat ? ? bisacodyl 5 mg ? ? ?polyethylene?17 grams ? ? ?Ondanesetron?ODT 4 mg 1 every 8 hours as needed for nausea? Gavilax powder 17 gram in water 2x day ? ? ? Dr Valentin Mitchell ? ? Montelukast 10 1x day ? ? Levothyroxine 25 mcg 1 1/2 daily? ? ? Metoprolol Succ ER 25 mg [address] Shawna Acosta ? ? ?Sildenafil [address] Roger Tsai ? ? ?Ubrelvy [address] Dr[address] Mireles ? ? ? Ariton 300 2x day ? Amitriptyline [address] Mireles ? ? ? Diazepam 5 mg 1x day as needed for anxiety? Zenzedi 30 mg [address] Renaldo Hawk ? ? ?mycophenolate 500 mg? Unsure of prescriber for the following: ? ?? Amovig 140? 1 every 28 days?? Pregabaldi? 100 mg 1x day Salt capsules Remicade Reason for continued inpatient stay Substantial Risk for: inability to function Time Spent With Patient Time: Total time managing care of this patient today __70__ minutes.
--- NOTE | 2024-06-13 18:47 | PC.NURSE ---
Pt became increasingly agitated at 1700 and was yelling, lowering herself to the ground, and walking into aden. Pt was difficult to engage with and difficult to redirect. Pt was self-dialoguing and making bizarre statements such as you need to tell the [place] [employer] to stop running experiments on her, it's inhumane. Pt received PO Ativan 1mg and Zyprexa 5mg at 1702. At 1750 pt continued to appear agitated and restless. Dr. Dorantes was notified. Pt received an additional Ativan 1mg at 1822.
[2024-06-13 20:35] VITALS: RESP 16
[2024-06-13] MEDS: OLANZapine 10 MG TABLET PO (21:03)
[2024-06-13] MEDS: Acetaminophen 325 MG TABLET 650 MG PO (22:36)
[2024-06-14 07:00] VITALS: BMI 21.2
[2024-06-14 07:47] VITALS: BP 118/67; PULSE 99; RESP 14; TEMP 36.2; O2SAT 98
[2024-06-14 09:00] VITALS: BP 118/67; PULSE 99
[2024-06-14] MEDS: mycophenolate mofetiL 250 MG CAPSULE 1000 MG PO ×2 (09:00→21:05)
[2024-06-14] MEDS: Metoprolol Succinate ER 25 MG TAB.ER.24H PO (09:00)
[2024-06-14] MEDS: Fludrocortisone Acetate 0.1 MG TABLET PO (09:00)
[2024-06-14] MEDS: Lithium Carbonate ER 300 MG TABLET.ER 600 MG PO ×2 (09:01→21:05)
[2024-06-14] MEDS: Levothyroxine Sodium 25 MCG TABLET PO (09:01)
--- NOTE | 2024-06-14 10:51 | HO.PM.IMCN ---
History of Present Illness Data of Consult Service Date: 06/14/24 Primary Care Provider: Unknown Physician HPI Reason for consult: POTS This is a 28-year-old female with pertinent history of mood disorder, POTS who is admitted to inpatient psychiatry for decompensated psychiatric illness. Hospital medicine team consulted for management of POTS. Patient with pressured speech and history is limited. Patient does endorse symptoms of dizziness and lightheadedness. Upon review of chart, she had a syncopal episode on 06/11 likely due to lightheadedness. States she was on metoprolol and Florinef for POTS. Noted tachycardia during inpatient psychiatry stay. She denies chest pain or shortness of breath. Review of Systems Constitutional: Constitutional: Reports no additional constitutional complaints ENT: Reports dizziness Cardiovascular: Cardiovascular: Reports no additional cardiovascular complaints Respiratory: Respiratory: Reports no additional respiratory complaints Gastrointestinal: Gastrointestinal: Reports no additional gastrointestinal complaints Genitourinary: Genitourinary: Reports no additional female genitourinary complaints Neurologic: Reports dizziness [facility] History POTS (postural orthostatic tachycardia syndrome) Social History Household Members: Family Patient Tobacco Use Status: Never used Tobacco Smoked in Last 30 Days: No Use of substances other than those prescribed or required for medical reasons: No Currently Displaying Signs/Symptoms of Drug Intoxication Withdrawal: No Advance Directives: No Advance Directives Information Provided: No Do you have thoughts of harming others: None Do you have a plan to hurt others: No Plan Recently lost weight without trying: Unsure Nutrition Risks: No Nutritional Risk Patient : No : No service: No Sexual orientation: Unable to collect Meds Allergies Allergy/AdvReac Type Severity Reaction Status Date / Time No Known Allergies Allergy Verified 06/10/24 15:16 Active Medications: Current Medications Acetaminophen (Acetaminophen 325 Mg Tablet) 650 mg PO Q6H PRN PRN Reason: Headache/Pain Mild Scale (1-3) Last Admin: 06/13/24 22:36 Dose: 650 mg Al Hydroxide/Mg Hydroxide (Magnesium Hydrox/Alum Hydrox 30 Ml Oral.Susp) 30 ml PO Q6H PRN PRN Reason: Heartburn/Nausea Fludrocortisone Acetate (Fludrocortisone Acetate 0.1 Mg Tablet) 0.1 mg PO DAILY [facility] Last Admin: 06/14/24 09:00 Dose: 0.1 mg Hydroxyzine HCl (Hydroxyzine Hcl 25 Mg Tablet) 25 mg PO Q6H PRN PRN Reason: Anxiety Last Admin: 06/13/24 21:03 Dose: 25 mg Levothyroxine Sodium (Levothyroxine Sodium 25 Mcg Tablet) 25 mcg PO DAILY@0600 [facility] Last Admin: 06/14/24 09:01 Dose: 25 mcg Camas Carbonate (Camas Carbonate Er 300 Mg Tablet.Er) 600 mg PO BID [facility] Last Admin: 06/14/24 09:01 Dose: 600 mg Lorazepam (Lorazepam 1 Mg Tablet) 1 mg PO Q4H PRN PRN Reason: agitation Last Admin: 06/13/24 21:03 Dose: 1 mg Magnesium Hydroxide (Milk Of Magnesia 30 Ml Oral.Susp) 30 ml PO DAILY PRN PRN Reason: Constipation Metoprolol Succinate (Metoprolol Succinate Er 25 Mg Tab.Er.24h) 25 mg PO DAILY [facility]; Protocol Last Admin: 06/14/24 09:00 Dose: 25 mg Mycophenolate Mofetil (Mycophenolate Mofetil 250 Mg Capsule) 1,000 mg PO BID [facility] Last Admin: 06/14/24 09:00 Dose: 1,000 mg Nicotine Polacrilex (Nicotine Polacrilex 2 Mg Gum) 4 mg BUCCAL Q2H PRN PRN Reason: Nicotine Cravings Olanzapine (Olanzapine Odt 10 Mg Tab.Rapdis) 5 mg TRANSLINGU Q4H PRN PRN Reason: agitation Last Admin: 06/13/24 17:02 Dose: 5 mg Olanzapine (Olanzapine 10 Mg Tablet) 10 mg PO BEDTIME [facility] Last Admin: 06/13/24 21:03 Dose: 10 mg Physical Exam Vital Signs and Narrative: Vital Signs: Last Vital Signs Temp 97.1 F 06/14/24 07:47 Pulse 99 06/14/24 09:00 Resp 14 06/14/24 07:47 BP 118/67 06/14/24 09:00 Pulse Ox 98 06/14/24 07:47 O2 Del Method Room Air 06/14/24 07:47 BMI result Body Mass Index 21.2 Middle-aged female lying in bed in no distress Neck supple, no JVD Regular rate and rhythm, S1-S2 heard Regular breath sounds bilaterally, no wheezing or crackles appreciated Abdomen soft nontender, no guarding, no rigidity Patient is awake, alert and oriented to self, place, time, no focal motor weakness Psych: Anxious with pressured speech No pedal edema Results Labs 06/12/24 08:03 06/12/24 08:03 Assessment and Plan (1) POTS (postural orthostatic tachycardia syndrome): Status: Acute Plan Plan: Continue low-dose metoprolol and Florinef. Suggest increasing fluid and salt intake (3 L food intake daily and 8-12g salt intake). Encourage patient to be upright as much as possible during the day and avoid prolonged bedrest in the day. Manage underlying mood disorder. Maintain good sleep hygiene and sleep-wake cycle. Patient can try lower extremity muscle tensing, leg crossing to improve venous return which will provide immediate temporary symptom relief in case of symptoms. Thank you for the consult. Will sign off. Please let us know if we can help
--- NOTE | 2024-06-14 17:27 | HO.PSYCHPN ---
Subjective Subjective Date of Service: 06/14/24 Reason For Visit: kristie/psychosis Interim History: continues more subdued. talking about herself and MD in the third person. excuses self from room. great difficulty engaging. per staff, flat, guarded. taking meds. bizarre behaviors. +RIS/self-dialoguing. called 911 last night. disorganized, delusional. slept 8-9 hours. Mental Status Exam Mental Status Exam Narrative: dressed in hospital angelita. disheveled. cooperative to her ability. standing throughout, talking to the unseen, pacing. speech spontaneous, not generally related present context, incr amount, incr rate, decr loudness, decr latency. thoughts distracted, related to AH. able to answer some questions with delay and difficulty, but such answers linear. affect constricted, hyper-intense. mood not assessed. no SI/HI/AVH expressed. Diagnostics Vital Signs (24Hr): Vital Signs - 24 hr 06/13/24 20:35 06/14/24 07:47 06/14/24 09:00 Temperature 97.1 F Pulse Rate 99 99 Respiratory Rate 16 14 Blood Pressure 118/67 118/67 Pulse Oximetry 98 Oxygen Delivery Method Room Air BMI result Body Mass Index 21.2 Labs 06/12/24 08:03 06/12/24 08:03 Labs: Laboratory Results - last 48 hr 06/12/24 08:03 Total T3 134 Imaging Radiology Impressions: ITS Impressions Head CT 06/11/24 11:34 IMPRESSION: 1. Normal CT scan of the brain. 2. No intracranial hemorrhage or skull fracture is seen. 3. No evidence of space occupying lesion could be found. 4. The current plain CT scan of the brain shows no diagnostic evidence of acute cerebral infarction. Cervical Spine CT 06/11/24 17:25 IMPRESSION: No acute intracranial hemorrhage. No acute, displaced cervical spine fracture. Head CT 06/11/24 17:25 IMPRESSION: No acute intracranial hemorrhage. No acute, displaced cervical spine fracture. Medications Medications Current Medications Acetaminophen (Acetaminophen 325 Mg Tablet) 650 mg PO Q6H PRN PRN Reason: Headache/Pain Mild Scale (1-3) Last Admin: 06/13/24 22:36 Dose: 650 mg Al Hydroxide/Mg Hydroxide (Magnesium Hydrox/Alum Hydrox 30 Ml Oral.Susp) 30 ml PO Q6H PRN PRN Reason: Heartburn/Nausea Fludrocortisone Acetate (Fludrocortisone Acetate 0.1 Mg Tablet) 0.1 mg PO DAILY [facility] Last Admin: 06/14/24 09:00 Dose: 0.1 mg Hydroxyzine HCl (Hydroxyzine Hcl 25 Mg Tablet) 25 mg PO Q6H PRN PRN Reason: Anxiety Last Admin: 06/13/24 21:03 Dose: 25 mg Levothyroxine Sodium (Levothyroxine Sodium 25 Mcg Tablet) 25 mcg PO DAILY@0600 [facility] Last Admin: 06/14/24 09:01 Dose: 25 mcg Tab Carbonate (Tab Carbonate Er 300 Mg Tablet.Er) 600 mg PO BID [facility] Last Admin: 06/14/24 09:01 Dose: 600 mg Lorazepam (Lorazepam 1 Mg Tablet) 1 mg PO Q4H PRN PRN Reason: agitation Last Admin: 06/13/24 21:03 Dose: 1 mg Magnesium Hydroxide (Milk Of Magnesia 30 Ml Oral.Susp) 30 ml PO DAILY PRN PRN Reason: Constipation Metoprolol Succinate (Metoprolol Succinate Er 25 Mg Tab.Er.24h) 25 mg PO DAILY [facility]; Protocol Last Admin: 06/14/24 09:00 Dose: 25 mg Mycophenolate Mofetil (Mycophenolate Mofetil 250 Mg Capsule) 1,000 mg PO BID [facility] Last Admin: 06/14/24 09:00 Dose: 1,000 mg Nicotine Polacrilex (Nicotine Polacrilex 2 Mg Gum) 4 mg BUCCAL Q2H PRN PRN Reason: Nicotine Cravings Olanzapine (Olanzapine Odt 10 Mg Tab.Rapdis) 5 mg TRANSLINGU Q4H PRN PRN Reason: agitation Last Admin: 06/13/24 17:02 Dose: 5 mg Olanzapine (Olanzapine 10 Mg Tablet) 10 mg PO BEDTIME [facility] Last Admin: 06/13/24 21:03 Dose: 10 mg Allergies Allergies Allergy/AdvReac Type Severity Reaction Status Date / Time No Known Allergies Allergy Verified 06/10/24 15:16 Assessment & Plan Assessment & Plan (1) POTS (postural orthostatic tachycardia syndrome): Status: Acute Code(s): G90.A - Postural orthostatic tachycardia syndrome [POTS] Assessment and Plan: Continue low-dose metoprolol and Florinef. Suggest increasing fluid and salt intake (3 L food intake daily and 8-12g salt intake). Encourage patient to be upright as much as possible during the day and avoid prolonged bedrest in the day. Manage underlying mood disorder. Maintain good sleep hygiene and sleep-wake cycle. Patient can try lower extremity muscle tensing, leg crossing to improve venous return which will provide immediate temporary symptom relief in case of symptoms. (2) SLE (systemic lupus erythematosus related syndrome): Status: Acute Code(s): M32.9 - Systemic lupus erythematosus, unspecified (3) Bipolar disorder: Status: Acute Code(s): F31.9 - Bipolar disorder, unspecified Plan 06/11: restart previous med regimen, assuming it is reasonable and if collateral bears out that it was effective. zyprexa and ativan for now. 06/12: met with parents, got meds list from pharmacy. verified father has bipolar disorder. 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 will restart medical regimen as well as psychiatric. kristie/psychosis may be as inherited from father or possibly immune-mediated. will address both potential etiologies simultaneously. 06/13: more subdued and slowed today than yesterday. poor sleep - increase HS zyprexa to 10 mg. 40 min call with family. check lyme titer. consult rheum, GI, hospitalist. continue current mgmt otherwise and observe for improvement. [facility] contacted, reported pt is no longer in their practice and hasn't been seen for more than a year. 06/14: hospitalist recs re POTS appreciated. return metoprolol to outpt dosing of 50 mg daily as pt HR 99. awaiting GI eval. case discussed with rheum, Dr. Starks, who is not available for full consult but did advise. will order labs as instructed and request neuro consult as well for opinion re LP and brain MRI. pt does continue more subdued and did actually sleep 8-9 hours last night, which is a striking improvement. Reason for continued inpatient stay Substantial Risk for: harm to self and inability to function Time Spent With Patient Time: Total time managing care of this patient today __65__ minutes.
[2024-06-14 20:16] VITALS: BP 138/85; PULSE 104; RESP 16; TEMP 36.2; O2SAT 96
[2024-06-14] MEDS: OLANZapine 10 MG TABLET PO (21:05)
[2024-06-14] MEDS: hydrOXYzine HCL 25 MG TABLET PO (21:05)
[2024-06-14] MEDS: LORazepam 1 MG TABLET PO (21:05)
[2024-06-14] MEDS: OLANZapine ODT 10 MG TAB.RAPDIS 5 MG TRANSLINGU (22:55)
[2024-06-15] MEDS: LORazepam 1 MG TABLET PO ×3 (00:14→20:15)
[2024-06-15] MEDS: OLANZapine ODT 10 MG TAB.RAPDIS 5 MG TRANSLINGU (07:04)
[2024-06-15] MEDS: Levothyroxine Sodium 25 MCG TABLET PO (07:04)
[2024-06-15 07:15] VITALS: BP 137/90; PULSE 105; RESP 16; TEMP 36.8; O2SAT 97
[2024-06-15 09:05] VITALS: BP 137/90; PULSE 93
[2024-06-15] MEDS: Metoprolol Succinate ER 50 MG TAB.ER.24H PO (09:05)
[2024-06-15] MEDS: Lithium Carbonate ER 300 MG TABLET.ER 600 MG PO ×2 (09:05→20:15)
[2024-06-15] MEDS: Fludrocortisone Acetate 0.1 MG TABLET PO (09:05)
[2024-06-15] MEDS: mycophenolate mofetiL 250 MG CAPSULE 1000 MG PO ×2 (09:06→20:14)
[2024-06-15 09:40] LABS: C Reactive Protein 0.19 mg/dL (< or = 0.50)
[2024-06-15 10:00] LABS: HBS Num1 3.16 mIU/mL (0-7.99); HBc Num1 0.13 S/CO (0.00-0.79); HBsAGNum1 0.32 S/CO (0.00-0.99); Hepatitis A Antibody IgM 0.28 Index (0-0.79); Hepatitis B Core Antibody Nonreactive (Nonreactive); Hepatitis B Surface Antigen Negative (Negative); ~HepC Num1 0.13 S/CO (0.00-0.79); ~Hepatitis A Antibody IgM Nonreactive (Nonreactive); ~Hepatitis B Surface Antibody NONREACTIVE (Nonreactive); ~Hepatitis C Antibody Nonreactive (Nonreactive)
[2024-06-15 10:05] LABS: Erythrocyte Sedimentation Rate 10 MM/HR (0-20)
--- NOTE | 2024-06-15 11:32 | P.CNNE_ITS ---
History of Present Illness Data of Consult Service Date: 06/15/24 Primary Care Provider: Unknown Physician HPI Reason for consult: Encephalopathy 28 years old woman I was asked to see if she needed and LP or MRI of brain. She was unable to provide any history and history was obtained from chart. Apparently she has longstanding history of psychiatric disease. At this time she was admitted for decompensation of her mental and physical status with weight loss. There was no evidence of any seizure, new rash, or any focal neurological symptom. There was no complaint of any headaches. Review of Systems 2 Review of Systems: Could not be done with her . [facility] Past Medical History Medical History POTS (postural orthostatic tachycardia syndrome) Social History Social History Household Members: Family Patient Tobacco Use Status: Never used Tobacco Smoked in Last 30 Days: No Use of substances other than those prescribed or required for medical reasons: No Currently Displaying Signs/Symptoms of Drug Intoxication Withdrawal: No Advance Directives: No Advance Directives Information Provided: No Do you have thoughts of harming others: None Do you have a plan to hurt others: No Plan Recently lost weight without trying: Unsure Nutrition Risks: No Nutritional Risk Patient : No : No service: No Sexual orientation: Unable to collect Meds Allergies Allergy/AdvReac Type Severity Reaction Status Date / Time No Known Allergies Allergy Verified 06/10/24 15:16 Active Medications: Current Medications Acetaminophen (Acetaminophen 325 Mg Tablet) 650 mg PO Q6H PRN PRN Reason: Headache/Pain Mild Scale (1-3) Last Admin: 06/13/24 22:36 Dose: 650 mg Al Hydroxide/Mg Hydroxide (Magnesium Hydrox/Alum Hydrox 30 Ml Oral.Susp) 30 ml PO Q6H PRN PRN Reason: Heartburn/Nausea Fludrocortisone Acetate (Fludrocortisone Acetate 0.1 Mg Tablet) 0.1 mg PO DAILY [facility] Last Admin: 06/15/24 09:05 Dose: 0.1 mg Hydroxyzine HCl (Hydroxyzine Hcl 25 Mg Tablet) 25 mg PO Q6H PRN PRN Reason: Anxiety Last Admin: 06/14/24 21:05 Dose: 25 mg Levothyroxine Sodium (Levothyroxine Sodium 25 Mcg Tablet) 25 mcg PO DAILY@0600 [facility] Last Admin: 06/15/24 07:04 Dose: 25 mcg [place] Carbonate ([place] Carbonate Er 300 Mg Tablet.Er) 600 mg PO BID [facility] Last Admin: 06/15/24 09:05 Dose: 600 mg Lorazepam (Lorazepam 1 Mg Tablet) 1 mg PO Q4H PRN PRN Reason: agitation Last Admin: 06/15/24 09:06 Dose: 1 mg Magnesium Hydroxide (Milk Of Magnesia 30 Ml Oral.Susp) 30 ml PO DAILY PRN PRN Reason: Constipation Metoprolol Succinate (Metoprolol Succinate Er 50 Mg Tab.Er.24h) 50 mg PO DAILY [facility]; Protocol Last Admin: 06/15/24 09:05 Dose: 50 mg Mycophenolate Mofetil (Mycophenolate Mofetil 250 Mg Capsule) 1,000 mg PO BID [facility] Last Admin: 06/15/24 09:06 Dose: 1,000 mg Nicotine Polacrilex (Nicotine Polacrilex 2 Mg Gum) 4 mg BUCCAL Q2H PRN PRN Reason: Nicotine Cravings Olanzapine (Olanzapine Odt 10 Mg Tab.Rapdis) 5 mg TRANSLINGU Q4H PRN PRN Reason: agitation Last Admin: 06/15/24 07:04 Dose: 5 mg Olanzapine (Olanzapine 10 Mg Tablet) 10 mg PO BEDTIME [facility] Last Admin: 06/14/24 21:05 Dose: 10 mg Physical Exam 2 Vital Signs: Vital Signs: Last Vital Signs Temp 98.2 F 06/15/24 07:15 Pulse 93 06/15/24 09:05 Resp 16 06/15/24 07:15 BP 137/90 H 06/15/24 09:05 Pulse Ox 97 06/15/24 07:15 O2 Del Method Room Air 06/15/24 07:15 BMI result Body Mass Index 21.2 Neuro: Other: She is alert and awake with mumbling fast in an speech where she is repeating ?I do not have brain tumor?. She was walking around when I came to see her. She was resistant to examination but after a minute or 2 was somewhat cooperative. She was following commands. Face was symmetrical. Visual muniz are full. Extraocular muscles were intact. Pupils were round reactive. There was no focal arm or leg weakness. Deep tendon reflexes were trace to 1+ with flexor plantars. [id number] testing did not reveal any significant abnormality. There was no significant abnormal movement. Facial expression blinking were generally decreased. Results Labs 06/12/24 08:03 06/12/24 08:03 Labs: Noncontrast head CT did not reveal any significant abnormality. 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 My index of suspicion for a treatable physical reason in the brain including inflammation or infection is very low. An MRI of brain without contrast, if never done before, might be a consideration but I do not have a justification for lumbar puncture. Procedures Date of Service Date of Service: 06/15/24
--- NOTE | 2024-06-15 15:18 | HO.PSYCHPN ---
Subjective Subjective Date of Service: 06/15/24 Reason For Visit: kristie/psychosis Interim History: no change in presentation from yesterday. met with mother individually. per staff, RIS, taking meds. pacing. capgras. paranoid. talking about water's being poisoned. slept about 5 hours. Mental Status Exam Mental Status Exam Narrative: dressed in [facility]. disheveled. cooperative to her ability. standing throughout, talking to the unseen, pacing. speech spontaneous, not generally related present context, incr amount, incr rate, decr loudness, decr latency. thoughts distracted, related to AH. able to answer some questions with delay and difficulty, but such answers linear. affect constricted, hyper-intense. mood not assessed. no SI/HI/AVH expressed. Diagnostics Vital Signs (24Hr): Vital Signs - 24 hr 06/14/24 20:16 06/15/24 07:15 06/15/24 09:05 Temperature 97.2 F 98.2 F Pulse Rate 104 H 105 H 93 Respiratory Rate 16 16 Blood Pressure 138/85 137/90 H 137/90 H Pulse Oximetry 96 97 Oxygen Delivery Method Room Air Room Air BMI result Body Mass Index 21.2 Labs 06/12/24 08:03 06/12/24 08:03 Labs: Laboratory Results - last 48 hr 06/15/24 06/15/24 09:11 09:12 ESR 10 C-Reactive Protein 0.19 Hepatitis A IgM Ab Nonreactive Hep Bs Antigen Negative Hep Bs Antibody NONREACTIVE Hep B Core Total Ab Nonreactive Hepatitis C Ab (EIA) Nonreactive Imaging Radiology Impressions: ITS Impressions Head CT 06/11/24 11:34 IMPRESSION: 1. Normal CT scan of the brain. 2. No intracranial hemorrhage or skull fracture is seen. 3. No evidence of space occupying lesion could be found. 4. The current plain CT scan of the brain shows no diagnostic evidence of acute cerebral infarction. Cervical Spine CT 06/11/24 17:25 IMPRESSION: No acute intracranial hemorrhage. No acute, displaced cervical spine fracture. Head CT 06/11/24 17:25 IMPRESSION: No acute intracranial hemorrhage. No acute, displaced cervical spine fracture. Medications Medications Current Medications Acetaminophen (Acetaminophen 325 Mg Tablet) 650 mg PO Q6H PRN PRN Reason: Headache/Pain Mild Scale (1-3) Last Admin: 06/13/24 22:36 Dose: 650 mg Al Hydroxide/Mg Hydroxide (Magnesium Hydrox/Alum Hydrox 30 Ml Oral.Susp) 30 ml PO Q6H PRN PRN Reason: Heartburn/Nausea Fludrocortisone Acetate (Fludrocortisone Acetate 0.1 Mg Tablet) 0.1 mg PO DAILY [facility] Last Admin: 06/15/24 09:05 Dose: 0.1 mg Hydroxyzine HCl (Hydroxyzine Hcl 25 Mg Tablet) 25 mg PO Q6H PRN PRN Reason: Anxiety Last Admin: 06/14/24 21:05 Dose: 25 mg Levothyroxine Sodium (Levothyroxine Sodium 25 Mcg Tablet) 25 mcg PO DAILY@0600 [facility] Last Admin: 06/15/24 07:04 Dose: [address] [place] Carbonate ([place] Carbonate Er 300 Mg Tablet.Er) 600 mg PO BID [facility] Last Admin: 06/15/24 09:05 Dose: 600 mg Lorazepam (Lorazepam 1 Mg Tablet) 1 mg PO Q4H PRN PRN Reason: agitation Last Admin: 06/15/24 09:06 Dose: 1 mg Magnesium Hydroxide (Milk Of Magnesia 30 Ml Oral.Susp) 30 ml PO DAILY PRN PRN Reason: Constipation Metoprolol Succinate (Metoprolol Succinate Er 50 Mg Tab.Er.24h) 50 mg PO DAILY [facility]; Protocol Last Admin: 06/15/24 09:05 Dose: 50 mg Mycophenolate Mofetil (Mycophenolate Mofetil 250 Mg Capsule) 1,000 mg PO BID [facility] Last Admin: 06/15/24 09:06 Dose: 1,000 mg Nicotine Polacrilex (Nicotine Polacrilex 2 Mg Gum) 4 mg BUCCAL Q2H PRN PRN Reason: Nicotine Cravings Olanzapine (Olanzapine Odt 10 Mg Tab.Rapdis) 5 mg TRANSLINGU Q4H PRN PRN Reason: agitation Last Admin: 06/15/24 07:04 Dose: 5 mg Olanzapine (Olanzapine 10 Mg Tablet) 10 mg PO BEDTIME [facility] Last Admin: 06/14/24 21:05 Dose: 10 mg Allergies Allergies Allergy/AdvReac Type Severity Reaction Status Date / Time No Known Allergies Allergy Verified 06/10/24 15:16 Assessment & Plan Assessment & Plan (1) Acute psychosis: Status: Acute Code(s): F23 - Brief psychotic disorder (2) SLE (systemic lupus erythematosus related syndrome): Status: Acute Code(s): M32.9 - Systemic lupus erythematosus, unspecified (3) Autoimmune hepatitis: Status: Acute Code(s): K75.4 - Autoimmune hepatitis (4) [place] thyroiditis: Status: Acute Code(s): E06.3 - Autoimmune thyroiditis (5) Crohn disease: Status: Acute Code(s): K50.90 - Crohn's disease, unspecified, without complications (6) POTS (postural orthostatic tachycardia syndrome): Status: Acute Code(s): G90.A - Postural orthostatic tachycardia syndrome [POTS] (7) Bipolar disorder: Status: Acute Code(s): F31.9 - Bipolar disorder, unspecified Plan 06/11: restart previous med regimen, assuming it is reasonable and if collateral bears out that it was effective. zyprexa and ativan for now. 06/12: met with parents, got meds list from pharmacy. verified father has bipolar disorder. 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 will restart medical regimen as well as psychiatric. kristie/psychosis may be as inherited from father or possibly immune-mediated. will address both potential etiologies simultaneously. 06/13: more subdued and slowed today than yesterday. poor sleep - increase HS zyprexa to 10 mg. 40 min call with family. check lyme titer. consult rheum, GI, hospitalist. continue current mgmt otherwise and observe for improvement. [facility] contacted, reported pt is no longer in their practice and hasn't been seen for more than a year. 06/14: hospitalist recs re POTS appreciated. return metoprolol to outpt dosing of 50 mg daily as pt HR 99. awaiting GI eval. case discussed with rheum, Dr. Starks, who is not available for full consult but did advise. will order labs as instructed and request neuro consult as well for opinion re LP and brain MRI. pt does continue more subdued and did actually sleep 8-9 hours last night, which is a striking improvement. 06/15: seen by neuro, low index of suspicion for central inflammatory process. rec MRI but no LP for now. ESR/CRP WNL today, other labs pending. increase HS zyprexa to 15 mg. no change in presentation from yesterday. Reason for continued inpatient stay Substantial Risk for: inability to function Time Spent With Patient Time: Total time managing care of this patient today __35__ minutes.
[2024-06-15 17:37] LABS: Lyme Abs Screen <0.90 index
[2024-06-15 20:00] VITALS: BP 135/90; PULSE 107; RESP 16; TEMP 36.2; O2SAT 95
[2024-06-15] MEDS: OLANZapine 7.5 MG TABLET 15 MG PO (20:13)
[2024-06-15] MEDS: hydrOXYzine HCL 25 MG TABLET PO (20:15)
[2024-06-16 07:50] VITALS: BP 135/79; PULSE 94; RESP 14; TEMP 37.1; O2SAT 99
[2024-06-16] MEDS: Metoprolol Succinate ER 50 MG TAB.ER.24H PO (09:53)
[2024-06-16] MEDS: Lithium Carbonate ER 300 MG TABLET.ER 600 MG PO ×2 (09:53→20:14)
[2024-06-16] MEDS: Fludrocortisone Acetate 0.1 MG TABLET PO (09:54)
[2024-06-16] MEDS: mycophenolate mofetiL 250 MG CAPSULE 1000 MG PO ×2 (09:54→20:13)
[2024-06-16] MEDS: LORazepam 1 MG TABLET PO ×2 (09:54→20:15)
[2024-06-16] MEDS: Levothyroxine Sodium 25 MCG TABLET PO (09:54)
[2024-06-16] MEDS: hydrOXYzine HCL 25 MG TABLET PO ×2 (09:54→20:15)
[2024-06-16] MEDS: OLANZapine ODT 10 MG TAB.RAPDIS 5 MG TRANSLINGU (09:55)
--- NOTE | 2024-06-16 13:36 | HO.PSYCHPN ---
Subjective Subjective Date of Service: 06/16/24 Reason For Visit: kristie/psychosis Subjective Notes: Conditional Voluntary Interim History: The nursing staff reported the patient is on one-to-one pacing in the hallway talking to herself grossly disorganized. She was seen throwing herself on the floor with bizarre statements and Keppra syndrome stating that her parents are imposters. She was seen self dialogue in at times. Last night she slept only 4 hours. On interview the patient looked internally preoccupied, on one-to-one with delayed thought process. Mental Status Exam Mental Status Exam Patient Appearance: Appropriate (Hospital gowns) Patient Orientation: Person Level of Consciousness: Disoriented Patient Behavior: Posturing and Confused Mood Description: Calm Affect Description: Blunted Ability to Follow Directions: Fair Speech Pattern: Impoverished, Difficulty Finding Words and Monotone Hallucinations: Auditory Delusions: Paranoid Ideation and Ideas of Reference Thought Process: Incoherent and Illogical Thought Content: positive for Poverty of Content, positive for Thought Blocking and positive for Disorganized Judgement: Poor Diagnostics Vital Signs (24Hr): Vital Signs - 24 hr 06/15/24 20:00 06/16/24 07:50 Temperature 97.2 F 98.7 F Pulse Rate 107 H 94 Respiratory Rate 16 14 Blood Pressure 135/90 H 135/79 Pulse Oximetry 95 99 Oxygen Delivery Method Room Air Room Air BMI result Body Mass Index 21.2 Labs 06/12/24 08:03 06/12/24 08:03 Labs: Laboratory Results - last 48 hr 06/13/24 06/15/24 06/15/24 08:20 09:11 09:12 ESR 10 C-Reactive Protein 0.19 Lyme Screen IgG & IgM <0.90 Hepatitis A IgM Ab Nonreactive Hep Bs Antigen Negative Hep Bs Antibody NONREACTIVE Hep B Core Total Ab Nonreactive Hepatitis C Ab (EIA) Nonreactive Imaging Radiology Impressions: ITS Impressions Head CT 06/11/24 11:34 IMPRESSION: 1. Normal CT scan of the brain. 2. No intracranial hemorrhage or skull fracture is seen. 3. No evidence of space occupying lesion could be found. 4. The current plain CT scan of the brain shows no diagnostic evidence of acute cerebral infarction. Cervical Spine CT 06/11/24 17:25 IMPRESSION: No acute intracranial hemorrhage. No acute, displaced cervical spine fracture. Head CT 06/11/24 17:25 IMPRESSION: No acute intracranial hemorrhage. No acute, displaced cervical spine fracture. Medications Medications Current Medications Acetaminophen (Acetaminophen 325 Mg Tablet) 650 mg PO Q6H PRN PRN Reason: Headache/Pain Mild Scale (1-3) Last Admin: 06/13/24 22:36 Dose: 650 mg Al Hydroxide/Mg Hydroxide (Magnesium Hydrox/Alum Hydrox 30 Ml Oral.Susp) 30 ml PO Q6H PRN PRN Reason: Heartburn/Nausea Fludrocortisone Acetate (Fludrocortisone Acetate 0.1 Mg Tablet) 0.1 mg PO DAILY [facility] Last Admin: 06/16/24 09:54 Dose: 0.1 mg Hydroxyzine HCl (Hydroxyzine Hcl 25 Mg Tablet) 25 mg PO Q6H PRN PRN Reason: Anxiety Last Admin: 06/16/24 09:54 Dose: 25 mg Levothyroxine Sodium (Levothyroxine Sodium 25 Mcg Tablet) 25 mcg PO DAILY@0600 [facility] Last Admin: 06/16/24 09:54 Dose: 25 mcg [place] Carbonate ([place] Carbonate Er 300 Mg Tablet.Er) 600 mg PO BID [facility] Last Admin: 06/16/24 09:53 Dose: 600 mg Lorazepam (Lorazepam 1 Mg Tablet) 1 mg PO Q4H PRN PRN Reason: agitation Last Admin: 06/16/24 09:54 Dose: 1 mg Magnesium Hydroxide (Milk Of Magnesia 30 Ml Oral.Susp) 30 ml PO DAILY PRN PRN Reason: Constipation Metoprolol Succinate (Metoprolol Succinate Er 50 Mg Tab.Er.24h) 50 mg PO DAILY [facility]; Protocol Last Admin: 06/16/24 09:53 Dose: 50 mg Mycophenolate Mofetil (Mycophenolate Mofetil 250 Mg Capsule) 1,000 mg PO BID [facility] Last Admin: 06/16/24 09:54 Dose: 1,000 mg Nicotine Polacrilex (Nicotine Polacrilex 2 Mg Gum) 4 mg BUCCAL Q2H PRN PRN Reason: Nicotine Cravings Olanzapine (Olanzapine Odt 10 Mg Tab.Rapdis) 5 mg TRANSLINGU Q4H PRN PRN Reason: agitation Last Admin: 06/16/24 09:55 Dose: 5 mg Olanzapine (Olanzapine 7.5 Mg Tablet) 15 mg PO BEDTIME [facility] Last Admin: 06/15/24 20:13 Dose: 15 mg Allergies Allergies Allergy/AdvReac Type Severity Reaction Status Date / Time No Known Allergies Allergy Verified 06/10/24 15:16 Assessment & Plan Assessment & Plan (1) Acute psychosis: Status: Acute Code(s): F23 - Brief psychotic disorder (2) SLE (systemic lupus erythematosus related syndrome): Status: Acute Code(s): M32.9 - Systemic lupus erythematosus, unspecified (3) Autoimmune hepatitis: Status: Acute Code(s): K75.4 - Autoimmune hepatitis (4) [place] thyroiditis: Status: Acute Code(s): E06.3 - Autoimmune thyroiditis (5) Crohn disease: Status: Acute Code(s): K50.90 - Crohn's disease, unspecified, without complications (6) POTS (postural orthostatic tachycardia syndrome): Status: Acute Code(s): G90.A - Postural orthostatic tachycardia syndrome [POTS] (7) Bipolar disorder: Status: Acute Code(s): F31.9 - Bipolar disorder, unspecified Plan 06/11: restart previous med regimen, assuming it is reasonable and if collateral bears out that it was effective. zyprexa and ativan for now. 06/12: met with parents, got meds list from pharmacy. verified father has bipolar disorder. 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 will restart medical regimen as well as psychiatric. kristie/psychosis may be as inherited from father or possibly immune-mediated. will address both potential etiologies simultaneously. 06/13: more subdued and slowed today than yesterday. poor sleep - increase HS zyprexa to 10 mg. 40 min call with family. check lyme titer. consult rheum, GI, hospitalist. continue current mgmt otherwise and observe for improvement. [facility] contacted, reported pt is no longer in their practice and hasn't been seen for more than a year. 06/14: hospitalist recs re POTS appreciated. return metoprolol to outpt dosing of 50 mg daily as pt HR 99. awaiting GI eval. case discussed with rheum, Dr. Starks, who is not available for full consult but did advise. will order labs as instructed and request neuro consult as well for opinion re LP and brain MRI. pt does continue more subdued and did actually sleep 8-9 hours last night, which is a striking improvement. 06/15: seen by neuro, low index of suspicion for central inflammatory process. rec MRI but no LP for now. ESR/CRP WNL today, other labs pending. increase HS zyprexa to 15 mg. no change in presentation from yesterday. 06/16 we are ordering blood work with lithium level for tomorrow. We are going to keep on Zyprexa 15 and reassess tomorrow. Reason for continued inpatient stay Substantial Risk for: inability to function, rapid decompensation and med/psych decompensation Time Spent With Patient Time: Total time managing care of this patient today __20__ minutes.
[2024-06-16 20:00] VITALS: BP 140/79; PULSE 100; RESP 18; TEMP 36.6; O2SAT 98
[2024-06-16] MEDS: OLANZapine 7.5 MG TABLET 15 MG PO (20:14)
[2024-06-17] MEDS: LORazepam 1 MG TABLET PO ×4 (03:42→22:04)
[2024-06-17] MEDS: hydrOXYzine HCL 25 MG TABLET PO ×2 (03:42→22:04)
[2024-06-17 06:08] LABS: Lithium 0.83 mmol/L (0.60-1.20)
[2024-06-17 06:10] LABS: Anion Gap 10 (12-20); Blood Urea Nitrogen 13 mg/dL (9-16); Calcium 9.5 mg/dL (8.4-10.2); Carbon Dioxide 27 mmol/L (22-29); Chloride 109 mmol/L (96-108); Creatinine Clr Calc Pharmacy 78.8; Estimated Glomerular Filt Rate > 60; Glucose Random 105 mg/dL (60-115); Potassium 4.1 mmol/L (3.3-5.1); Sodium 142 mmol/L (135-145)
[2024-06-17 06:28] LABS: Thyroid Stimulating Hormone < 0.01 uIU/mL (0.32-4.0)
[2024-06-17 08:00] VITALS: BP 125/79; PULSE 90; RESP 16; TEMP 36.7; O2SAT 99
[2024-06-17] MEDS: OLANZapine ODT 10 MG TAB.RAPDIS 5 MG TRANSLINGU (09:16)
[2024-06-17] MEDS: Lithium Carbonate ER 300 MG TABLET.ER 600 MG PO ×2 (09:16→22:03)
[2024-06-17] MEDS: Levothyroxine Sodium 25 MCG TABLET PO (09:16)
[2024-06-17 09:17] VITALS: BP 120/67; PULSE 99
[2024-06-17] MEDS: Metoprolol Succinate ER 50 MG TAB.ER.24H PO (09:17)
[2024-06-17] MEDS: Fludrocortisone Acetate 0.1 MG TABLET PO (09:17)
[2024-06-17] MEDS: mycophenolate mofetiL 250 MG CAPSULE 1000 MG PO ×2 (09:19→22:04)
--- NOTE | 2024-06-17 13:01 | P.PNPSI_ITS ---
Subjective Subjective Date of Service: 06/17/24 Reason For Visit: kristie/psychosis Interim History: The nursing staff reported the patient had been on one-to-one due to extreme disorganization. He had been pacing talking to herself disruptive sleep 3 or 4 hours. On interview the patient looks extremely disorganized and psychotic. Mental Status Exam Mental Status Exam Patient Appearance: Unkempt Patient Orientation: Person Level of Consciousness: Restless and Inappropriate Patient Behavior: Guarded and Passive Mood Description: Withdrawn Affect Description: Blunted Patient Cognition Impaired: Yes Ability to Follow Directions: Fair Speech Pattern: Impoverished and Difficulty Finding Words Hallucinations: Auditory Delusions: Paranoid Ideation and Ideas of Reference Thought Process: Incoherent and Illogical Thought Content: positive for Poverty of Content, positive for Thought Blocking and positive for Incoherent Judgement: Poor Diagnostics Vital Signs (24Hr): Vital Signs - 24 hr 06/16/24 20:00 06/17/24 08:00 06/17/24 09:17 Temperature 98 F 98.0 F Pulse Rate 100 90 99 Respiratory Rate 18 16 Blood Pressure 140/79 H 125/79 120/67 Pulse Oximetry 98 99 Oxygen Delivery Method Room Air Room Air BMI result Body Mass Index 21.2 Labs 06/12/24 08:03 06/17/24 05:39 Labs: Laboratory Results - last 48 hr 06/13/24 06/17/24 08:20 05:39 Sodium 142 Potassium 4.1 Chloride 109 H Carbon Dioxide 27 Anion Gap 10 L BUN 13 Creatinine 0.68 Estim Creat Clear Calc 78.8 Estimated GFR > 60 Random Glucose 105 Calcium 9.5 D TSH < 0.01 L [place] 0.83 Lyme Screen IgG & IgM <0.90 Lyme Progressive Test TNP Imaging Radiology Impressions: ITS Impressions Head CT 06/11/24 11:34 IMPRESSION: 1. Normal CT scan of the brain. 2. No intracranial hemorrhage or skull fracture is seen. 3. No evidence of space occupying lesion could be found. 4. The current plain CT scan of the brain shows no diagnostic evidence of acute cerebral infarction. Cervical Spine CT 06/11/24 17:25 IMPRESSION: No acute intracranial hemorrhage. No acute, displaced cervical spine fracture. Head CT 06/11/24 17:25 IMPRESSION: No acute intracranial hemorrhage. No acute, displaced cervical spine fracture. Medications Medications Current Medications Acetaminophen (Acetaminophen 325 Mg Tablet) 650 mg PO Q6H PRN PRN Reason: Headache/Pain Mild Scale (1-3) Last Admin: 06/13/24 22:36 Dose: 650 mg Al Hydroxide/Mg Hydroxide (Magnesium Hydrox/Alum Hydrox 30 Ml Oral.Susp) 30 ml PO Q6H PRN PRN Reason: Heartburn/Nausea Fludrocortisone Acetate (Fludrocortisone Acetate 0.1 Mg Tablet) 0.1 mg PO DAILY [facility] Last Admin: 06/17/24 09:17 Dose: 0.1 mg Hydroxyzine HCl (Hydroxyzine Hcl 25 Mg Tablet) 25 mg PO Q6H PRN PRN Reason: Anxiety Last Admin: 06/17/24 03:42 Dose: 25 mg Levothyroxine Sodium (Levothyroxine Sodium 25 Mcg Tablet) 25 mcg PO DAILY@0600 [facility] Last Admin: 06/17/24 09:16 Dose: 25 mcg [place] Carbonate ([place] Carbonate Er 300 Mg Tablet.Er) 600 mg PO BID [facility] Last Admin: 06/17/24 09:16 Dose: 600 mg Lorazepam (Lorazepam 1 Mg Tablet) 1 mg PO Q4H PRN PRN Reason: agitation Last Admin: 06/17/24 09:19 Dose: 1 mg Magnesium Hydroxide (Milk Of Magnesia 30 Ml Oral.Susp) 30 ml PO DAILY PRN PRN Reason: Constipation Metoprolol Succinate (Metoprolol Succinate Er 50 Mg Tab.Er.24h) 50 mg PO DAILY [facility]; Protocol Last Admin: 06/17/24 09:17 Dose: 50 mg Mycophenolate Mofetil (Mycophenolate Mofetil 250 Mg Capsule) 1,000 mg PO BID [facility] Last Admin: 06/17/24 09:19 Dose: 1,000 mg Nicotine Polacrilex (Nicotine Polacrilex 2 Mg Gum) 4 mg BUCCAL Q2H PRN PRN Reason: Nicotine Cravings Olanzapine (Olanzapine 7.5 Mg Tablet) 15 mg PO BEDTIME [facility] Last Admin: 06/16/24 20:14 Dose: 15 mg Olanzapine (Olanzapine Odt 10 Mg Tab.Rapdis) 10 mg TRANSLINGU Q4H PRN PRN Reason: agitation Allergies Allergies Allergy/AdvReac Type Severity Reaction Status Date / Time No Known Allergies Allergy Verified 06/10/24 15:16 Assessment & Plan Assessment & Plan (1) Acute psychosis: Status: Acute Code(s): F23 - Brief psychotic disorder (2) SLE (systemic lupus erythematosus related syndrome): Status: Acute Code(s): M32.9 - Systemic lupus erythematosus, unspecified (3) Autoimmune hepatitis: Status: Acute Code(s): K75.4 - Autoimmune hepatitis (4) [place] thyroiditis: Status: Acute Code(s): E06.3 - Autoimmune thyroiditis (5) Crohn disease: Status: Acute Code(s): K50.90 - Crohn's disease, unspecified, without complications (6) POTS (postural orthostatic tachycardia syndrome): Status: Acute Code(s): G90.A - Postural orthostatic tachycardia syndrome [POTS] (7) Bipolar disorder: Status: Acute Code(s): F31.9 - Bipolar disorder, unspecified Plan 06/11: restart previous med regimen, assuming it is reasonable and if collateral bears out that it was effective. zyprexa and ativan for now. 06/12: met with parents, got meds list from pharmacy. verified father has bipolar disorder. 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 will restart medical regimen as well as psychiatric. kristie/psychosis may be as inherited from father or possibly immune-mediated. will address both potential etiologies simultaneously. 06/13: more subdued and slowed today than yesterday. poor sleep - increase HS zyprexa to 10 mg. 40 min call with family. check lyme titer. consult rheum, GI, hospitalist. continue current mgmt otherwise and observe for improvement. [facility] contacted, reported pt is no longer in their practice and hasn't been seen for more than a year. 06/14: hospitalist recs re POTS appreciated. return metoprolol to outpt dosing of 50 mg daily as pt HR 99. awaiting GI eval. case discussed with rheum, Dr. Starks, who is not available for full consult but did advise. will order labs as instructed and request neuro consult as well for opinion re LP and brain MRI. pt does continue more subdued and did actually sleep 8-9 hours last night, which is a striking improvement. 06/15: seen by neuro, low index of suspicion for central inflammatory process. rec MRI but no LP for now. ESR/CRP WNL today, other labs pending. increase HS zyprexa to 15 mg. no change in presentation from yesterday. 06/16 we are ordering blood work with lithium level for tomorrow. We are going to keep on Zyprexa 15 and reassess tomorrow. 06/17 lithium level in therapeutic level. BMP within normal limits. The patient is grossly disorganized still psychotic. Reason for continued inpatient stay Substantial Risk for: inability to function, rapid decompensation and med/psych decompensation Time Spent With Patient Time: Total time managing care of this patient today __20__ minutes.
[2024-06-17] MEDS: OLANZapine ODT 10 MG TAB.RAPDIS TRANSLINGU ×2 (13:20→23:54)
[2024-06-17 19:57] VITALS: BP 148/92; PULSE 107; RESP 18; TEMP 36.3; O2SAT 98
[2024-06-17 21:48] LABS: TS Negative Control Passed; TS Panel A 0; TS Panel B 0; TS Positive Control Passed; TSpotTB Negative (Negative)
[2024-06-17] MEDS: OLANZapine 7.5 MG TABLET 15 MG PO (22:03)
[2024-06-18] MEDS: LORazepam 1 MG TABLET PO (03:07)
[2024-06-18 09:18] LABS: Complement C3 80 mg/dL (83-193)
[2024-06-18 09:20] VITALS: BP 143/94; PULSE 110; RESP 16; TEMP 36.4; O2SAT 97
[2024-06-18 09:22] VITALS: BP 143/94; PULSE 110
[2024-06-18] MEDS: Metoprolol Succinate ER 50 MG TAB.ER.24H PO (09:22)
[2024-06-18] MEDS: Lithium Carbonate ER 300 MG TABLET.ER 600 MG PO ×2 (09:22→20:25)
[2024-06-18] MEDS: Levothyroxine Sodium 25 MCG TABLET PO (09:22)
[2024-06-18] MEDS: mycophenolate mofetiL 250 MG CAPSULE 1000 MG PO ×2 (09:23→20:25)
[2024-06-18] MEDS: Fludrocortisone Acetate 0.1 MG TABLET PO (09:23)
[2024-06-18 09:49] LABS: Prot Elec - Albumin 4.2 g/dL (3.8-4.8); Prot Elec - Alpha1 0.3 g/dL (0.2-0.3); Prot Elec - Alpha2 0.7 g/dL (0.5-0.9); Prot Elec - Beta 1 0.4 g/dL (0.4-0.6); Prot Elec - Beta 2 0.3 g/dL (0.2-0.5); Prot Elec - Gamma 1.3 g/dL (0.8-1.7); Prot Elec - Total Protein 7.2 g/dL (6.1-8.1)
--- NOTE | 2024-06-18 16:24 | HO.PSYCHPN ---
Subjective Subjective Date of Service: 06/18/24 Reason For Visit: kristie/psychosis Interim History: no change in presentation. wandering the halls muttering to self. per staff, screaming at sister, who visited over w/e. throwing self into aden. +RIS. taking medications. paranoid. rapid, mumbled speech. up until 0400. multiple PRNs. lithium level 0.83. long meeting held with mother. Mental Status Exam Mental Status Exam Narrative: dressed in hospital angel[facility]. disheveled. cooperative to her ability. standing throughout, talking to the unseen, pacing. speech spontaneous, not generally related present context, incr amount, incr rate, decr loudness, decr latency. thoughts distracted, related to AH. able to answer some questions with delay and difficulty, but such answers linear. affect constricted, hyper-intense. mood not assessed. no SI/HI/AVH expressed. Diagnostics Vital Signs (24Hr): Vital Signs - 24 hr 06/17/24 19:57 06/18/24 09:20 06/18/24 09:22 Temperature 97.4 F 97.6 F Pulse Rate 107 H 110 H 110 H Respiratory Rate 18 16 Blood Pressure 148/92 H 143/94 H 143/94 H Pulse Oximetry 98 97 Oxygen Delivery Method Room Air Room Air BMI result Body Mass Index 21.2 Labs 06/12/24 08:03 06/17/24 05:39 Labs: Laboratory Results - last 48 hr 06/15/24 06/15/24 06/17/24 09:11 09:12 05:39 Sodium 142 Potassium 4.1 Chloride 109 H Carbon Dioxide 27 Anion Gap 10 L BUN 13 Creatinine 0.68 Estim Creat Clear Calc 78.8 Estimated GFR > 60 Random Glucose 105 Calcium 9.5 D Total Protein (PEP) 7.2 Albumin (PEP) 4.2 Bpdmz-6-Cmdwcsgcp 0.3 Xbamf-7-Qneghhvla 0.7 Qoca-9-Oijtjxdr 0.4 Gygh-6-Qhiftjpv 0.3 Gamma Globulins 1.3 PEP Interpretation SEE NOTE TSH < 0.01 L [place] 0.83 Complement C3 80 L Complement C4 14 L TB Test (T-Spot) Com Negative TB Test Nil Control Passed TB Test Panel A 0 TB Test Panel B 0 TB Test Positive Cntrl Passed Imaging Radiology Impressions: ITS Impressions Head CT 06/11/24 11:34 IMPRESSION: 1. Normal CT scan of the brain. 2. No intracranial hemorrhage or skull fracture is seen. 3. No evidence of space occupying lesion could be found. 4. The current plain CT scan of the brain shows no diagnostic evidence of acute cerebral infarction. Cervical Spine CT 06/11/24 17:25 IMPRESSION: No acute intracranial hemorrhage. No acute, displaced cervical spine fracture. Head CT 06/11/24 17:25 IMPRESSION: No acute intracranial hemorrhage. No acute, displaced cervical spine fracture. Medications Medications Current Medications Acetaminophen (Acetaminophen 325 Mg Tablet) 650 mg PO Q6H PRN PRN Reason: Headache/Pain Mild Scale (1-3) Last Admin: 06/13/24 22:36 Dose: 650 mg Al Hydroxide/Mg Hydroxide (Magnesium Hydrox/Alum Hydrox 30 Ml Oral.Susp) 30 ml PO Q6H PRN PRN Reason: Heartburn/Nausea Fludrocortisone Acetate (Fludrocortisone Acetate 0.1 Mg Tablet) 0.1 mg PO DAILY [facility] Last Admin: 06/18/24 09:23 Dose: 0.1 mg Hydroxyzine HCl (Hydroxyzine Hcl 25 Mg Tablet) 25 mg PO Q6H PRN PRN Reason: Anxiety Last Admin: 06/17/24 22:04 Dose: 25 mg Levothyroxine Sodium (Levothyroxine Sodium 25 Mcg Tablet) 25 mcg PO DAILY@0600 [facility] Last Admin: 06/18/24 09:22 Dose: 25 mcg [place] Carbonate ([place] Carbonate Er 300 Mg Tablet.Er) 600 mg PO BID [facility] Last Admin: 06/18/24 09:22 Dose: 600 mg Lorazepam (Lorazepam 1 Mg Tablet) 1 mg PO Q4H PRN PRN Reason: agitation Last Admin: 06/18/24 03:07 Dose: 1 mg Lorazepam (Lorazepam 1 Mg Tablet) 2 mg PO BEDTIME [facility] Magnesium Hydroxide (Milk Of Magnesia 30 Ml Oral.Susp) 30 ml PO DAILY PRN PRN Reason: Constipation Metoprolol Succinate (Metoprolol Succinate Er 50 Mg Tab.Er.24h) 50 mg PO DAILY [facility]; Protocol Last Admin: 06/18/24 09:22 Dose: 50 mg Mycophenolate Mofetil (Mycophenolate Mofetil 250 Mg Capsule) 1,000 mg PO BID [facility] Last Admin: 06/18/24 09:23 Dose: 1,000 mg Nicotine Polacrilex (Nicotine Polacrilex 2 Mg Gum) 4 mg BUCCAL Q2H PRN PRN Reason: Nicotine Cravings Olanzapine (Olanzapine 10 Mg Tablet) 30 mg PO BEDTIME [facility] Olanzapine (Olanzapine Odt 10 Mg Tab.Rapdis) 5 mg TRANSLINGU Q4H PRN PRN Reason: agitation Allergies Allergies Allergy/AdvReac Type Severity Reaction Status Date / Time No Known Allergies Allergy Verified 06/10/24 15:16 Assessment & Plan Assessment & Plan (1) Acute psychosis: Status: Acute Code(s): F23 - Brief psychotic disorder (2) SLE (systemic lupus erythematosus related syndrome): Status: Acute Code(s): M32.9 - Systemic lupus erythematosus, unspecified (3) Autoimmune hepatitis: Status: Acute Code(s): K75.4 - Autoimmune hepatitis (4) [place] thyroiditis: Status: Acute Code(s): E06.3 - Autoimmune thyroiditis (5) Crohn disease: Status: Acute Code(s): K50.90 - Crohn's disease, unspecified, without complications (6) POTS (postural orthostatic tachycardia syndrome): Status: Acute Code(s): G90.A - Postural orthostatic tachycardia syndrome [POTS] (7) Bipolar disorder: Status: Acute Code(s): F31.9 - Bipolar disorder, unspecified Plan 06/11: restart previous med regimen, assuming it is reasonable and if collateral bears out that it was effective. zyprexa and ativan for now. 06/12: met with parents, got meds list from pharmacy. verified father has bipolar disorder. 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 will restart medical regimen as well as psychiatric. kristie/psychosis may be as inherited from father or possibly immune-mediated. will address both potential etiologies simultaneously. 06/13: more subdued and slowed today than yesterday. poor sleep - increase HS zyprexa to 10 mg. 40 min call with family. check lyme titer. consult rheum, GI, hospitalist. continue current mgmt otherwise and observe for improvement. [facility] contacted, reported pt is no longer in their practice and hasn't been seen for more than a year. 06/14: hospitalist recs re POTS appreciated. return metoprolol to outpt dosing of 50 mg daily as pt HR 99. awaiting GI eval. case discussed with rheum, Dr. Starks, who is not available for full consult but did advise. will order labs as instructed and request neuro consult as well for opinion re LP and brain MRI. pt does continue more subdued and did actually sleep 8-9 hours last night, which is a striking improvement. 06/15: seen by neuro, low index of suspicion for central inflammatory process. rec MRI but no LP for now. ESR/CRP WNL today, other labs pending. increase HS zyprexa to 15 mg. no change in presentation from yesterday. 06/16 we are ordering blood work with lithium level for tomorrow. We are going to keep on Zyprexa 15 and reassess tomorrow. 06/17 lithium level in therapeutic level. BMP within normal limits. The patient is grossly disorganized still psychotic. 06/18: no improvement over w/e. lithium 0.83. add VPA 1000 QHS. increase HS zyprexa to 30 mg, decrease PRNs to 5 mg each. add ativan 2 mg QHS. sleeping less than 4 hours per night. order brain MRI, unclear if pt will be able to tolerate study. Reason for continued inpatient stay Substantial Risk for: inability to function Time Spent With Patient Time: Total time managing care of this patient today _60___ minutes.
[2024-06-18 20:00] VITALS: RESP 16
[2024-06-18] MEDS: Divalproex Sodium ER 500 MG TAB.ER.24H 1000 MG PO (20:25)
[2024-06-18] MEDS: OLANZapine 10 MG TABLET 30 MG PO (20:25)
[2024-06-18] MEDS: hydrOXYzine HCL 25 MG TABLET PO (20:25)
[2024-06-18] MEDS: LORazepam 1 MG TABLET 2 MG PO (20:26)
[2024-06-18 21:28] LABS: Anti DNA DS Antibody 1 IU/mL; Antibody to SS-A Antigen <1.0 NEG AI (<1.0 NEG); Antibody to SS-B Antigen <1.0 NEG AI (<1.0 NEG); Cardiolipin IgG Ab <2.0 GPL-U/mL; Cardiolipin IgM Ab <2.0 MPL-U/mL; SM/Ribonucleoprotein Ab <1.0 NEG AI (<1.0 NEG); Smith Protein <1.0 NEG AI (<1.0 NEG)
[2024-06-18 21:28] LABS: ANAchoice Screen NEGATIVE (NEGATIVE)
[2024-06-19 07:56] VITALS: BP 141/93; PULSE 102; RESP 16; TEMP 36.6; O2SAT 98
[2024-06-19 09:00] VITALS: BP 141/93; PULSE 102
[2024-06-19] MEDS: Metoprolol Succinate ER 50 MG TAB.ER.24H PO (09:00)
[2024-06-19] MEDS: Fludrocortisone Acetate 0.1 MG TABLET PO (09:01)
[2024-06-19] MEDS: LORazepam 1 MG TABLET PO ×2 (09:01→15:37)
[2024-06-19] MEDS: Levothyroxine Sodium 25 MCG TABLET PO (09:01)
[2024-06-19] MEDS: Lithium Carbonate ER 300 MG TABLET.ER 600 MG PO ×2 (09:01→20:39)
[2024-06-19] MEDS: hydrOXYzine HCL 25 MG TABLET PO ×2 (09:01→15:36)
[2024-06-19] MEDS: OLANZapine ODT 10 MG TAB.RAPDIS 5 MG TRANSLINGU ×2 (09:02→15:37)
[2024-06-19] MEDS: mycophenolate mofetiL 250 MG CAPSULE 1000 MG PO ×2 (09:02→20:39)
--- NOTE | 2024-06-19 15:35 | HO.PSYCHPN ---
Subjective Subjective Date of Service: 06/19/24 Reason For Visit: kristie/psychosis Interim History: sleeping much of day shift. seen ambulating in the milieu in the afternoon. less mumbling, less pacing. per staff, taking meds. +RIS. visible. no engagement. slept 2 hours overnight. Mental Status Exam Mental Status Exam Narrative: dressed in [facility] angelita. disheveled. pacing. lips observed to be moving slightly, more slowly than prior. affect constricted, normo-intense. mood not assessed. no SI/HI/AVH expressed. Diagnostics Vital Signs (24Hr): Vital Signs - 24 hr 06/18/24 20:00 06/19/24 07:56 06/19/24 09:00 Temperature 97.9 F Pulse Rate 102 H 102 H Respiratory Rate 16 16 Blood Pressure 141/93 H 141/93 H Pulse Oximetry 98 Oxygen Delivery Method Room Air BMI result Body Mass Index 21.2 Labs 06/12/24 08:03 06/17/24 05:39 Labs: Laboratory Results - last 48 hr 06/15/24 06/15/24 09:11 09:12 Total Protein (PEP) 7.2 Albumin (PEP) 4.2 Silgx-0-Spsjeblrg 0.3 Nrxou-6-Ecucorcfo 0.7 Bhln-2-Jgkigjnb 0.4 Jfpc-2-Aoczbkxj 0.3 Gamma Globulins 1.3 PEP Interpretation SEE NOTE Autoimmune Screen NEGATIVE SS-A/Ro Antibody <1.0 NEG SS-B/La Antibody <1.0 NEG Sm ([place]) Antibody <1.0 NEG SM/RN TELEPHONE TRIAGE IgG Antibody <1.0 NEG Double Strand DNA Ab 1 Anti-Cardiolipin IgG Ab <2.0 Anti-Cardiolipin IgM Ab <2.0 Complement C3 80 L Complement C4 14 L TB Test (T-Spot) Com Negative TB Test Nil Control Passed TB Test Panel A 0 TB Test Panel B 0 TB Test Positive Cntrl Passed Imaging Radiology Impressions: ITS Impressions Head CT 06/11/24 11:34 IMPRESSION: 1. Normal CT scan of the brain. 2. No intracranial hemorrhage or skull fracture is seen. 3. No evidence of space occupying lesion could be found. 4. The current plain CT scan of the brain shows no diagnostic evidence of acute cerebral infarction. Cervical Spine CT 06/11/24 17:25 IMPRESSION: No acute intracranial hemorrhage. No acute, displaced cervical spine fracture. Head CT 06/11/24 17:25 IMPRESSION: No acute intracranial hemorrhage. No acute, displaced cervical spine fracture. Medications Medications Current Medications Acetaminophen (Acetaminophen 325 Mg Tablet) 650 mg PO Q6H PRN PRN Reason: Headache/Pain Mild Scale (1-3) Last Admin: 06/13/24 22:36 Dose: 650 mg Al Hydroxide/Mg Hydroxide (Magnesium Hydrox/Alum Hydrox 30 Ml Oral.Susp) 30 ml PO Q6H PRN PRN Reason: Heartburn/Nausea Divalproex Sodium (Divalproex Sodium Er 500 Mg Tab.Er.24h) 1,000 mg PO BEDTIME [facility] Last Admin: 06/18/24 20:25 Dose: 1,000 mg Fludrocortisone Acetate (Fludrocortisone Acetate 0.1 Mg Tablet) 0.1 mg PO DAILY [facility] Last Admin: 06/19/24 09:01 Dose: 0.1 mg Hydroxyzine HCl (Hydroxyzine Hcl 25 Mg Tablet) 25 mg PO Q6H PRN PRN Reason: Anxiety Last Admin: 06/19/24 09:01 Dose: 25 mg Levothyroxine Sodium (Levothyroxine Sodium 25 Mcg Tablet) 25 mcg PO DAILY@0600 [facility] Last Admin: 06/19/24 09:01 Dose: 25 mcg [place] Carbonate ([place] Carbonate Er 300 Mg Tablet.Er) 600 mg PO BID [facility] Last Admin: 06/19/24 09:01 Dose: 600 mg Lorazepam (Lorazepam 1 Mg Tablet) 1 mg PO Q4H PRN PRN Reason: agitation Last Admin: 06/19/24 09:01 Dose: 1 mg Lorazepam (Lorazepam 1 Mg Tablet) 2 mg PO BEDTIME [facility] Last Admin: 06/18/24 20:26 Dose: 2 mg Magnesium Hydroxide (Milk Of Magnesia 30 Ml Oral.Susp) 30 ml PO DAILY PRN PRN Reason: Constipation Metoprolol Succinate (Metoprolol Succinate Er 50 Mg Tab.Er.24h) 50 mg PO DAILY [facility]; Protocol Last Admin: 06/19/24 09:00 Dose: 50 mg Mycophenolate Mofetil (Mycophenolate Mofetil 250 Mg Capsule) 1,000 mg PO BID [facility] Last Admin: 06/19/24 09:02 Dose: 1,000 mg Nicotine Polacrilex (Nicotine Polacrilex 2 Mg Gum) 4 mg BUCCAL Q2H PRN PRN Reason: Nicotine Cravings Olanzapine (Olanzapine 10 Mg Tablet) 30 mg PO BEDTIME [facility] Last Admin: 06/18/24 20:25 Dose: 30 mg Olanzapine (Olanzapine Odt 10 Mg Tab.Rapdis) 5 mg TRANSLINGU Q4H PRN PRN Reason: agitation Last Admin: 06/19/24 09:02 Dose: 5 mg Allergies Allergies Allergy/AdvReac Type Severity Reaction Status Date / Time No Known Allergies Allergy Verified 06/10/24 15:16 Assessment & Plan Assessment & Plan (1) Acute psychosis: Status: Acute Code(s): F23 - Brief psychotic disorder (2) SLE (systemic lupus erythematosus related syndrome): Status: Acute Code(s): M32.9 - Systemic lupus erythematosus, unspecified (3) Autoimmune hepatitis: Status: Acute Code(s): K75.4 - Autoimmune hepatitis (4) [place] thyroiditis: Status: Acute Code(s): E06.3 - Autoimmune thyroiditis (5) Crohn disease: Status: Acute Code(s): K50.90 - Crohn's disease, unspecified, without complications (6) POTS (postural orthostatic tachycardia syndrome): Status: Acute Code(s): G90.A - Postural orthostatic tachycardia syndrome [POTS] (7) Bipolar disorder: Status: Acute Code(s): F31.9 - Bipolar disorder, unspecified Plan 06/11: restart previous med regimen, assuming it is reasonable and if collateral bears out that it was effective. zyprexa and ativan for now. 06/12: met with parents, got meds list from pharmacy. verified father has bipolar disorder. 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 will restart medical regimen as well as psychiatric. kristie/psychosis may be as inherited from father or possibly immune-mediated. will address both potential etiologies simultaneously. 06/13: more subdued and slowed today than yesterday. poor sleep - increase HS zyprexa to 10 mg. 40 min call with family. check lyme titer. consult rheum, GI, hospitalist. continue current mgmt otherwise and observe for improvement. [facility] contacted, reported pt is no longer in their practice and hasn't been seen for more than a year. 8/8: hospitalist recs re POTS appreciated. return metoprolol to outpt dosing of 50 mg daily as pt HR 99. awaiting GI eval. case discussed with rheum, Dr. Carmona, who is not available for full consult but did advise. will order labs as instructed and request neuro consult as well for opinion re LP and brain MRI. pt does continue more subdued and did actually sleep 8-9 hours last night, which is a striking improvement. 06/15: seen by neuro, low index of suspicion for central inflammatory process. rec MRI but no LP for now. ESR/CRP WNL today, other labs pending. increase HS zyprexa to 15 mg. no change in presentation from yesterday. 06/16 we are ordering blood work with lithium level for tomorrow. We are going to keep on Zyprexa 15 and reassess tomorrow. 06/17 lithium level in therapeutic level. BMP within normal limits. The patient is grossly disorganized still psychotic. 06/18: no improvement over w/e. lithium 0.83. add VPA 1000 QHS. increase HS zyprexa to 30 mg, decrease PRNs to 5 mg each. add ativan 2 mg QHS. sleeping less than 4 hours per night. order brain MRI, unclear if pt will be able to tolerate study. 06/19: hold brain MRI due to need to be still for 30 minutes. slept 2 hours overnight but then from 1000 through afternoon. appeared to be pacing more slowly and less voluble today. per rheum review of chart, labs not suggestive of active SLE. Reason for continued inpatient stay Substantial Risk for: inability to function Time Spent With Patient Time: Total time managing care of this patient today __35__ minutes.
[2024-06-19] MEDS: Divalproex Sodium ER 500 MG TAB.ER.24H 1000 MG PO (20:38)
[2024-06-19] MEDS: OLANZapine 10 MG TABLET 30 MG PO (20:39)
[2024-06-19] MEDS: LORazepam 1 MG TABLET 2 MG PO (20:39)
[2024-06-20 07:45] VITALS: BP 126/91; PULSE 104; RESP 18; TEMP 36.4; O2SAT 99
[2024-06-20] MEDS: Lithium Carbonate ER 300 MG TABLET.ER 600 MG PO ×2 (08:39→21:31)
[2024-06-20] MEDS: Levothyroxine Sodium 25 MCG TABLET PO (08:39)
[2024-06-20 08:40] VITALS: BP 126/91; PULSE 104
[2024-06-20] MEDS: Fludrocortisone Acetate 0.1 MG TABLET PO (08:40)
[2024-06-20] MEDS: Metoprolol Succinate ER 50 MG TAB.ER.24H PO (08:40)
[2024-06-20] MEDS: mycophenolate mofetiL 250 MG CAPSULE 1000 MG PO ×2 (08:41→21:32)
--- NOTE | 2024-06-20 15:43 | P.PNPSI_ITS ---
Subjective Subjective Date of Service: 06/20/24 Reason For Visit: kristie/psychosis Interim History: trending less agitated, not as actively pacing, observed in milieu not talking to herself for the first time this afternoon. remains paranoid and delusional. per staff, was able to have some brief conversations in the evening, had a brief conversation with RN this morning. slept 7 hours last night. Mental Status Exam Mental Status Exam Narrative: dressed in [facility]. disheveled. pacing, more slowly than prior. rapid self-dialogue, softer than before. paranoid delusions re being murdered and peoples' having been replaced. affect constricted, normo-intense. mood not assessed. no SI/HI/AVH expressed. Diagnostics Vital Signs (24Hr): Vital Signs - 24 hr 06/20/24 07:45 06/20/24 08:40 Temperature 97.6 F Pulse Rate 104 H 104 H Respiratory Rate 18 Blood Pressure 126/91 H 126/91 H Pulse Oximetry 99 Oxygen Delivery Method Room Air BMI result Body Mass Index 21.2 Labs 06/12/24 08:03 06/17/24 05:39 Labs: Laboratory Results - last 48 hr 06/15/24 06/15/24 09:11 09:12 Autoimmune Screen NEGATIVE SS-A/Ro Antibody <1.0 NEG SS-B/La Antibody <1.0 NEG Sm ([place]) Antibody <1.0 NEG SM/TECHNICAL ILLUSTRATIONS MAP INKER IgG Antibody <1.0 NEG Double Strand DNA Ab 1 Anti-Cardiolipin IgG Ab <2.0 Anti-Cardiolipin IgM Ab <2.0 Imaging Radiology Impressions: ITS Impressions Head CT 06/11/24 11:34 IMPRESSION: 1. Normal CT scan of the brain. 2. No intracranial hemorrhage or skull fracture is seen. 3. No evidence of space occupying lesion could be found. 4. The current plain CT scan of the brain shows no diagnostic evidence of acute cerebral infarction. Cervical Spine CT 06/11/24 17:25 IMPRESSION: No acute intracranial hemorrhage. No acute, displaced cervical spine fracture. Head CT 06/11/24 17:25 IMPRESSION: No acute intracranial hemorrhage. No acute, displaced cervical spine fracture. Medications Medications Current Medications Acetaminophen (Acetaminophen 325 Mg Tablet) 650 mg PO Q6H PRN PRN Reason: Headache/Pain Mild Scale (1-3) Last Admin: 06/13/24 22:36 Dose: 650 mg Al Hydroxide/Mg Hydroxide (Magnesium Hydrox/Alum Hydrox 30 Ml Oral.Susp) 30 ml PO Q6H PRN PRN Reason: Heartburn/Nausea Divalproex Sodium (Divalproex Sodium Er 500 Mg Tab.Er.24h) 1,000 mg PO BEDTIME [facility] Last Admin: 06/19/24 20:38 Dose: 1,000 mg Fludrocortisone Acetate (Fludrocortisone Acetate 0.1 Mg Tablet) 0.1 mg PO DAILY [facility] Last Admin: 06/20/24 08:40 Dose: 0.1 mg Hydroxyzine HCl (Hydroxyzine Hcl 25 Mg Tablet) 25 mg PO Q6H PRN PRN Reason: Anxiety Last Admin: 06/19/24 15:36 Dose: 25 mg Levothyroxine Sodium (Levothyroxine Sodium 25 Mcg Tablet) 25 mcg PO DAILY@0600 [facility] Last Admin: 06/20/24 08:39 Dose: 25 mcg [place] Carbonate ([place] Carbonate Er 300 Mg Tablet.Er) 600 mg PO BID [facility] Last Admin: 06/20/24 08:39 Dose: 600 mg Lorazepam (Lorazepam 1 Mg Tablet) 1 mg PO Q4H PRN PRN Reason: agitation Last Admin: 06/19/24 15:37 Dose: 1 mg Lorazepam (Lorazepam 1 Mg Tablet) 2 mg PO BEDTIME [facility] Last Admin: 06/19/24 20:39 Dose: 2 mg Magnesium Hydroxide (Milk Of Magnesia 30 Ml Oral.Susp) 30 ml PO DAILY PRN PRN Reason: Constipation Metoprolol Succinate (Metoprolol Succinate Er 50 Mg Tab.Er.24h) 50 mg PO DAILY [facility]; Protocol Last Admin: 06/20/24 08:40 Dose: 50 mg Mycophenolate Mofetil (Mycophenolate Mofetil 250 Mg Capsule) 1,000 mg PO BID [facility] Last Admin: 06/20/24 08:41 Dose: 1,000 mg Nicotine Polacrilex (Nicotine Polacrilex 2 Mg Gum) 4 mg BUCCAL Q2H PRN PRN Reason: Nicotine Cravings Olanzapine (Olanzapine 10 Mg Tablet) 30 mg PO BEDTIME [facility] Last Admin: 06/19/24 20:39 Dose: 30 mg Olanzapine (Olanzapine Odt 10 Mg Tab.Rapdis) 5 mg TRANSLINGU Q4H PRN PRN Reason: agitation Last Admin: 06/19/24 15:37 Dose: 5 mg Allergies Allergies Allergy/AdvReac Type Severity Reaction Status Date / Time No Known Allergies Allergy Verified 06/10/24 15:16 Assessment & Plan Assessment & Plan (1) Acute psychosis: Status: Acute Code(s): F23 - Brief psychotic disorder (2) SLE (systemic lupus erythematosus related syndrome): Status: Acute Code(s): M32.9 - Systemic lupus erythematosus, unspecified (3) Autoimmune hepatitis: Status: Acute Code(s): K75.4 - Autoimmune hepatitis (4) Lawrence thyroiditis: Status: Acute Code(s): E06.3 - Autoimmune thyroiditis (5) Crohn disease: Status: Acute Code(s): K50.90 - Crohn's disease, unspecified, without complications (6) POTS (postural orthostatic tachycardia syndrome): Status: Acute Code(s): G90.A - Postural orthostatic tachycardia syndrome [POTS] (7) Bipolar disorder: Status: Acute Code(s): F31.9 - Bipolar disorder, unspecified Plan 06/11: restart previous med regimen, assuming it is reasonable and if collateral bears out that it was effective. zyprexa and ativan for now. 06/12: met with parents, got meds list from pharmacy. verified father has bipolar disorder. 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 will restart medical regimen as well as psychiatric. kristie/psychosis may be as inherited from father or possibly immune-mediated. will address both potential etiologies simultaneously. 06/13: more subdued and slowed today than yesterday. poor sleep - increase HS zyprexa to 10 mg. 40 min call with family. check lyme titer. consult rheum, GI, hospitalist. continue current mgmt otherwise and observe for improvement. [facility] contacted, reported pt is no longer in their practice and hasn't been seen for more than a year. 06/14: hospitalist recs re POTS appreciated. return metoprolol to outpt dosing of 50 mg daily as pt HR 99. awaiting GI eval. case discussed with rheum, Dr. Carmona, who is not available for full consult but did advise. will order labs as instructed and request neuro consult as well for opinion re LP and brain MRI. pt does continue more subdued and did actually sleep 8-9 hours last night, which is a striking improvement. 06/15: seen by neuro, low index of suspicion for central inflammatory process. rec MRI but no LP for now. ESR/CRP WNL today, other labs pending. increase HS zyprexa to 15 mg. no change in presentation from yesterday. 06/16 we are ordering blood work with lithium level for tomorrow. We are going to keep on Zyprexa 15 and reassess tomorrow. 06/17 lithium level in therapeutic level. BMP within normal limits. The patient is grossly disorganized still psychotic. 06/18: no improvement over w/e. lithium 0.83. add VPA 1000 QHS. increase HS zyprexa to 30 mg, decrease PRNs to 5 mg each. add ativan 2 mg QHS. sleeping less than 4 hours per night. order brain MRI, unclear if pt will be able to tolerate study. 06/19: hold brain MRI due to need to be still for 30 minutes. slept 2 hours overnight but then from 1000 through afternoon. appeared to be pacing more slowly and less voluble today. per rheum review of chart, labs not suggestive of active SLE. 06/20: remains slower than prior, observed in milieu not self-dialoguing for the first time by this junior underwriter. slept 7 hours overnight. labs continue to not support active auto-immune illness. remains with paranoia about being murdered and delusions re swapping. continue current mgmt. Reason for continued inpatient stay Substantial Risk for: inability to function and rapid decompensation Time Spent With Patient Time: Total time managing care of this patient today _35___ minutes.
[2024-06-20 19:53] VITALS: BP 130/80; PULSE 99; TEMP 36.8; O2SAT 97
[2024-06-20] MEDS: OLANZapine 10 MG TABLET 30 MG PO (21:30)
[2024-06-20] MEDS: Divalproex Sodium ER 500 MG TAB.ER.24H 1000 MG PO (21:31)
[2024-06-20] MEDS: LORazepam 1 MG TABLET 2 MG PO (21:31)
[2024-06-21] MEDS: LORazepam 1 MG TABLET PO ×2 (00:35→17:11)
[2024-06-21] MEDS: hydrOXYzine HCL 25 MG TABLET PO ×2 (00:35→21:30)
[2024-06-21 07:00] VITALS: BMI 22.3
[2024-06-21 07:42] LABS: PTT (LAC) Screen 33 sec (<=40)
[2024-06-21 08:00] VITALS: BP 131/82; PULSE 82; RESP 18
[2024-06-21] MEDS: Metoprolol Succinate ER 50 MG TAB.ER.24H PO (09:02)
[2024-06-21] MEDS: Lithium Carbonate ER 300 MG TABLET.ER 600 MG PO ×2 (09:02→21:30)
[2024-06-21] MEDS: Levothyroxine Sodium 25 MCG TABLET PO (09:02)
[2024-06-21] MEDS: Fludrocortisone Acetate 0.1 MG TABLET PO (09:02)
[2024-06-21] MEDS: mycophenolate mofetiL 250 MG CAPSULE 1000 MG PO ×2 (09:02→21:31)
--- NOTE | 2024-06-21 16:29 | HO.PSYCHPN ---
Subjective Subjective Date of Service: 06/21/24 Reason For Visit: kristie/psychosis Interim History: more calm, less pacing, more napping, less hyperverbal. remains with paranoid delusions, however. per staff, anx 6-8. +RIS. flat, withdrawn. taking medications. saying she has schizophrenia. placed self on floor eves. slept about 8 hours. Mental Status Exam Mental Status Exam Narrative: dressed in hospital [place]. disheveled. pacing, more slowly than prior. rapid self-dialogue, softer than before. paranoid delusions re peoples' having been replaced. affect constricted, normo-intense. mood not assessed. no SI/HI/AVH expressed. Diagnostics Vital Signs (24Hr): Vital Signs - 24 hr 06/20/24 19:53 06/21/24 08:00 Temperature 98.2 F Pulse Rate 99 82 Respiratory Rate 18 Blood Pressure 130/80 131/82 Pulse Oximetry 97 Oxygen Delivery Method Room Air BMI result Body Mass Index 22.3 Labs 06/12/24 08:03 06/17/24 05:39 Labs: Laboratory Results - last 48 hr 06/15/24 09:11 LA PTT Screen 33 LA Thrombin Time TNP dRVV Screen 32 dRVVT Confirm Interp TNP dRVVT Mixing Study TNP dRVVT Mix Interpret TNP Hexagon Phase Neutraliz TNP Lupus Anticoag Interp see note Imaging Radiology Impressions: ITS Impressions Head CT 06/11/24 11:34 IMPRESSION: 1. Normal CT scan of the brain. 2. No intracranial hemorrhage or skull fracture is seen. 3. No evidence of space occupying lesion could be found. 4. The current plain CT scan of the brain shows no diagnostic evidence of acute cerebral infarction. Cervical Spine CT 06/11/24 17:25 IMPRESSION: No acute intracranial hemorrhage. No acute, displaced cervical spine fracture. Head CT 06/11/24 17:25 IMPRESSION: No acute intracranial hemorrhage. No acute, displaced cervical spine fracture. Medications Medications Current Medications Acetaminophen (Acetaminophen 325 Mg Tablet) 650 mg PO Q6H PRN PRN Reason: Headache/Pain Mild Scale (1-3) Last Admin: 06/13/24 22:36 Dose: 650 mg Al Hydroxide/Mg Hydroxide (Magnesium Hydrox/Alum Hydrox 30 Ml Oral.Susp) 30 ml PO Q6H PRN PRN Reason: Heartburn/Nausea Divalproex Sodium (Divalproex Sodium Er 500 Mg Tab.Er.24h) 1,000 mg PO BEDTIME [facility] Last Admin: 06/20/24 21:31 Dose: 1,000 mg Fludrocortisone Acetate (Fludrocortisone Acetate 0.1 Mg Tablet) 0.1 mg PO DAILY [facility] Last Admin: 06/21/24 09:02 Dose: 0.1 mg Hydroxyzine HCl (Hydroxyzine Hcl 25 Mg Tablet) 25 mg PO Q6H PRN PRN Reason: Anxiety Last Admin: 06/21/24 00:35 Dose: 25 mg Levothyroxine Sodium (Levothyroxine Sodium 25 Mcg Tablet) 25 mcg PO DAILY@0600 [facility] Last Admin: 06/21/24 09:02 Dose: 25 mcg [place] Carbonate ([place] Carbonate Er 300 Mg Tablet.Er) 600 mg PO BID [facility] Last Admin: 06/21/24 09:02 Dose: 600 mg Lorazepam (Lorazepam 1 Mg Tablet) 1 mg PO Q4H PRN PRN Reason: agitation Last Admin: 06/21/24 00:35 Dose: 1 mg Lorazepam (Lorazepam 1 Mg Tablet) 2 mg PO BEDTIME [facility] Last Admin: 06/20/24 21:31 Dose: 2 mg Magnesium Hydroxide (Milk Of Magnesia 30 Ml Oral.Susp) 30 ml PO DAILY PRN PRN Reason: Constipation Metoprolol Succinate (Metoprolol Succinate Er 50 Mg Tab.Er.24h) 50 mg PO DAILY [facility]; Protocol Last Admin: 06/21/24 09:02 Dose: 50 mg Mycophenolate Mofetil (Mycophenolate Mofetil 250 Mg Capsule) 1,000 mg PO BID [facility] Last Admin: 06/21/24 09:02 Dose: 1,000 mg Nicotine Polacrilex (Nicotine Polacrilex 2 Mg Gum) 4 mg BUCCAL Q2H PRN PRN Reason: Nicotine Cravings Olanzapine (Olanzapine 10 Mg Tablet) 30 mg PO BEDTIME [facility] Last Admin: 06/20/24 21:30 Dose: 30 mg Olanzapine (Olanzapine Odt 10 Mg Tab.Rapdis) 5 mg TRANSLINGU Q4H PRN PRN Reason: agitation Last Admin: 06/19/24 15:37 Dose: 5 mg Allergies Allergies Allergy/AdvReac Type Severity Reaction Status Date / Time No Known Allergies Allergy Verified 06/10/24 15:16 Assessment & Plan Assessment & Plan (1) Acute psychosis: Status: Acute Code(s): F23 - Brief psychotic disorder (2) SLE (systemic lupus erythematosus related syndrome): Status: Acute Code(s): M32.9 - Systemic lupus erythematosus, unspecified (3) Autoimmune hepatitis: Status: Acute Code(s): K75.4 - Autoimmune hepatitis (4) Lawrence thyroiditis: Status: Acute Code(s): E06.3 - Autoimmune thyroiditis (5) Crohn disease: Status: Acute Code(s): K50.90 - Crohn's disease, unspecified, without complications (6) POTS (postural orthostatic tachycardia syndrome): Status: Acute Code(s): G90.A - Postural orthostatic tachycardia syndrome [POTS] (7) Bipolar disorder: Status: Acute Code(s): F31.9 - Bipolar disorder, unspecified Plan 06/11: restart previous med regimen, assuming it is reasonable and if collateral bears out that it was effective. zyprexa and ativan for now. 06/12: met with parents, got meds list from pharmacy. verified father has bipolar disorder. 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 will restart medical regimen as well as psychiatric. kristie/psychosis may be as inherited from father or possibly immune-mediated. will address both potential etiologies simultaneously. 06/13: more subdued and slowed today than yesterday. poor sleep - increase HS zyprexa to 10 mg. 40 min call with family. check lyme titer. consult rheum, GI, hospitalist. continue current mgmt otherwise and observe for improvement. [facility] contacted, reported pt is no longer in their practice and hasn't been seen for more than a year. 06/14: hospitalist recs re POTS appreciated. return metoprolol to outpt dosing of 50 mg daily as pt HR 99. awaiting GI eval. case discussed with rheum, Dr. Carmona, who is not available for full consult but did advise. will order labs as instructed and request neuro consult as well for opinion re LP and brain MRI. pt does continue more subdued and did actually sleep 8-9 hours last night, which is a striking improvement. 06/15: seen by neuro, low index of suspicion for central inflammatory process. rec MRI but no LP for now. ESR/CRP WNL today, other labs pending. increase HS zyprexa to 15 mg. no change in presentation from yesterday. 06/16 we are ordering blood work with lithium level for tomorrow. We are going to keep on Zyprexa 15 and reassess tomorrow. 06/17 lithium level in therapeutic level. BMP within normal limits. The patient is grossly disorganized still psychotic. 06/18: no improvement over w/e. lithium 0.83. add VPA 1000 QHS. increase HS zyprexa to 30 mg, decrease PRNs to 5 mg each. add ativan 2 mg QHS. sleeping less than 4 hours per night. order brain MRI, unclear if pt will be able to tolerate study. 06/19: hold brain MRI due to need to be still for 30 minutes. slept 2 hours overnight but then from 1000 through afternoon. appeared to be pacing more slowly and less voluble today. per rheum review of chart, labs not suggestive of active SLE. 06/20: remains slower than prior, observed in milieu not self-dialoguing for the first time by this physician underwriter. slept 7 hours overnight. labs continue to not support active auto-immune illness. remains with paranoia about being murdered and delusions re swapping. continue current mgmt. 06/21: labs continue to not support active auto-immune disease. gradual daily improvements continue. continue current mgmt. Reason for continued inpatient stay Substantial Risk for: inability to function, rapid decompensation and med/psych decompensation Time Spent With Patient Time: Total time managing care of this patient today __25__ minutes.
[2024-06-21] MEDS: OLANZapine ODT 10 MG TAB.RAPDIS 5 MG TRANSLINGU (17:11)
--- NOTE | 2024-06-21 17:15 | PC.NURSE ---
Observed increase in self dialoguing and agitation. Utilizing the phone but not talking to anyone. [facility] staff reported PT has been more vocal to self and is unable to sit still. PRN medication offered and accepted. Effect pending.
[2024-06-21 20:00] VITALS: BP 135/89; PULSE 113; RESP 16; TEMP 37.2; O2SAT 99
[2024-06-21] MEDS: OLANZapine 10 MG TABLET 30 MG PO (21:28)
[2024-06-21] MEDS: LORazepam 1 MG TABLET 2 MG PO (21:29)
[2024-06-21] MEDS: Divalproex Sodium ER 500 MG TAB.ER.24H 1000 MG PO (21:30)
[2024-06-22 08:05] VITALS: BP 124/77; PULSE 97; RESP 16; TEMP 36.9; O2SAT 99
[2024-06-22] MEDS: mycophenolate mofetiL 250 MG CAPSULE 1000 MG PO ×2 (09:11→21:18)
[2024-06-22] MEDS: LORazepam 1 MG TABLET PO (09:12)
[2024-06-22] MEDS: hydrOXYzine HCL 25 MG TABLET PO (09:12)
[2024-06-22] MEDS: Metoprolol Succinate ER 50 MG TAB.ER.24H PO (09:12)
[2024-06-22] MEDS: Levothyroxine Sodium 25 MCG TABLET PO (09:12)
[2024-06-22] MEDS: Lithium Carbonate ER 300 MG TABLET.ER 600 MG PO ×2 (09:12→21:19)
[2024-06-22] MEDS: Fludrocortisone Acetate 0.1 MG TABLET PO (09:12)
[2024-06-22] MEDS: OLANZapine ODT 10 MG TAB.RAPDIS 5 MG TRANSLINGU (09:13)
[2024-06-22 09:38] LABS: IgA 178 mg/dL (47-310); IgG 1298 mg/dL (600-1640); IgM 276 mg/dL (50-300)
--- NOTE | 2024-06-22 17:24 | HO.PSYCHPN ---
Subjective Subjective Date of Service: 06/22/24 Reason For Visit: kristie/psychosis Interim History: appears to be sleeping much of the shift, not observed in the milieu. per staff, taking meds pacing. irritable. taking PRNs. self-dialoguing. slept most of the NOC - 7-8 hours. Mental Status Exam Mental Status Exam Narrative: dressed in hospital [place]. disheveled. asleep in her bed. affect constricted, normo-intense. mood not assessed. no SI/HI/AVH expressed. Diagnostics Vital Signs (24Hr): Vital Signs - 24 hr 06/21/24 20:00 06/22/24 08:05 Temperature 99 F 98.4 F Pulse Rate 113 H 97 Respiratory Rate 16 16 Blood Pressure 135/89 124/77 Pulse Oximetry 99 99 Oxygen Delivery Method Room Air Room Air BMI result Body Mass Index 22.3 Labs 06/12/24 08:03 06/17/24 05:39 Labs: Laboratory Results - last 48 hr 06/15/24 06/15/24 09:11 09:12 LA PTT Screen 33 LA Thrombin Time TNP dRVV Screen 32 dRVVT Confirm Interp TNP dRVVT Mixing Study TNP dRVVT Mix Interpret TNP Hexagon Phase Neutraliz TNP Lupus Anticoag Interp see note IgG Total 1298 IgA Total 178 IgM 276 MOE Interpretation SEE NOTE Imaging Radiology Impressions: ITS Impressions Head CT 06/11/24 11:34 IMPRESSION: 1. Normal CT scan of the brain. 2. No intracranial hemorrhage or skull fracture is seen. 3. No evidence of space occupying lesion could be found. 4. The current plain CT scan of the brain shows no diagnostic evidence of acute cerebral infarction. Cervical Spine CT 06/11/24 17:25 IMPRESSION: No acute intracranial hemorrhage. No acute, displaced cervical spine fracture. Head CT 06/11/24 17:25 IMPRESSION: No acute intracranial hemorrhage. No acute, displaced cervical spine fracture. Medications Medications Current Medications Acetaminophen (Acetaminophen 325 Mg Tablet) 650 mg PO Q6H PRN PRN Reason: Headache/Pain Mild Scale (1-3) Last Admin: 06/13/24 22:36 Dose: 650 mg Al Hydroxide/Mg Hydroxide (Magnesium Hydrox/Alum Hydrox 30 Ml Oral.Susp) 30 ml PO Q6H PRN PRN Reason: Heartburn/Nausea Divalproex Sodium (Divalproex Sodium Er 500 Mg Tab.Er.24h) 1,000 mg PO BEDTIME REPLACED BY [facility] Last Admin: 06/21/24 21:30 Dose: 1,000 mg Fludrocortisone Acetate (Fludrocortisone Acetate 0.1 Mg Tablet) 0.1 mg PO DAILY [facility]PL[facility]ED [facility] Last Admin: 06/22/24 09:12 Dose: 0.1 mg Hydroxyzine HCl (Hydroxyzine Hcl 25 Mg Tablet) 25 mg PO Q6H PRN PRN Reason: Anxiety Last Admin: 06/22/24 09:12 Dose: 25 mg Levothyroxine Sodium (Levothyroxine Sodium 25 Mcg Tablet) 25 mcg PO DAILY@0600 REPLACED [facility] Last Admin: 06/22/24 09:12 Dose: 25 mcg Jet Carbonate (Jet Carbonate Er 300 Mg Tablet.Er) 600 mg PO BID [facility]PLACED BY [facility] Last Admin: 06/22/24 09:12 Dose: 600 mg Lorazepam (Lorazepam 1 Mg Tablet) 1 mg PO Q4H PRN PRN Reason: agitation Last Admin: 06/22/24 09:12 Dose: 1 mg Lorazepam (Lorazepam 1 Mg Tablet) 2 mg PO BEDTIME REPLACED BY [facility] Last Admin: 06/21/24 21:29 Dose: 2 mg Magnesium Hydroxide (Milk Of Magnesia 30 Ml Oral.Susp) 30 ml PO DAILY PRN PRN Reason: Constipation Metoprolol Succinate (Metoprolol Succinate Er 50 Mg Tab.Er.24h) 50 mg PO DAILY [facility]PLACED BY [facility]; Protocol Last Admin: 06/22/24 09:12 Dose: 50 mg Mycophenolate Mofetil (Mycophenolate Mofetil 250 Mg Capsule) 1,000 mg PO BID REPLACED BY [facility] Last Admin: 06/22/24 09:11 Dose: 1,000 mg Nicotine Polacrilex (Nicotine Polacrilex 2 Mg Gum) 4 mg BUCCAL Q2H PRN PRN Reason: Nicotine Cravings Olanzapine (Olanzapine 10 Mg Tablet) 30 mg PO BEDTIME REPLACED BY [facility] Last Admin: 06/21/24 21:28 Dose: 30 mg Olanzapine (Olanzapine Odt 10 Mg Tab.Rapdis) 5 mg TRANSLINGU Q4H PRN PRN Reason: agitation Last Admin: 06/22/24 09:13 Dose: 5 mg Allergies Allergies Allergy/AdvReac Type Severity Reaction Status Date / Time No Known Allergies Allergy Verified 06/10/24 15:16 Assessment & Plan Assessment & Plan (1) Acute psychosis: Status: Acute Code(s): F23 - Brief psychotic disorder (2) SLE (systemic lupus erythematosus related syndrome): Status: Acute Code(s): M32.9 - Systemic lupus erythematosus, unspecified (3) Autoimmune hepatitis: Status: Acute Code(s): K75.4 - Autoimmune hepatitis (4) Lawrence thyroiditis: Status: Acute Code(s): E06.3 - Autoimmune thyroiditis (5) Crohn disease: Status: Acute Code(s): K50.90 - Crohn's disease, unspecified, without complications (6) POTS (postural orthostatic tachycardia syndrome): Status: Acute Code(s): G90.A - Postural orthostatic tachycardia syndrome [POTS] (7) Bipolar disorder: Status: Acute Code(s): F31.9 - Bipolar disorder, unspecified Plan 06/11: restart previous med regimen, assuming it is reasonable and if collateral bears out that it was effective. zyprexa and ativan for now. 06/12: met with parents, got meds list from pharmacy. verified father has bipolar disorder. 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 will restart medical regimen as well as psychiatric. kristie/psychosis may be as inherited from father or possibly immune-mediated. will address both potential etiologies simultaneously. 06/13: more subdued and slowed today than yesterday. poor sleep - increase HS zyprexa to 10 mg. 40 min call with family. check lyme titer. consult rheum, GI, hospitalist. continue current mgmt otherwise and observe for improvement. [facility] contacted, reported pt is no longer in their practice and hasn't been seen for more than a year. 06/14: hospitalist recs re POTS appreciated. return metoprolol to outpt dosing of 50 mg daily as pt HR 99. awaiting GI eval. case discussed with rheum, Dr. Carmona, who is not available for full consult but did advise. will order labs as instructed and request neuro consult as well for opinion re LP and brain MRI. pt does continue more subdued and did actually sleep 8-9 hours last night, which is a striking improvement. 06/15: seen by neuro, low index of suspicion for central inflammatory process. rec MRI but no LP for now. ESR/CRP WNL today, other labs pending. increase HS zyprexa to 15 mg. no change in presentation from yesterday. 06/16 we are ordering blood work with lithium level for tomorrow. We are going to keep on Zyprexa 15 and reassess tomorrow. 06/17 lithium level in therapeutic level. BMP within normal limits. The patient is grossly disorganized still psychotic. 06/18: no improvement over w/e. lithium 0.83. add VPA 1000 QHS. increase HS zyprexa to 30 mg, decrease PRNs to 5 mg each. add ativan 2 mg QHS. sleeping less than 4 hours per night. order brain MRI, unclear if pt will be able to tolerate study. 06/19: hold brain MRI due to need to be still for 30 minutes. slept 2 hours overnight but then from 1000 through afternoon. appeared to be pacing more slowly and less voluble today. per rheum review of chart, labs not suggestive of active SLE. 06/20: remains slower than prior, observed in milieu not self-dialoguing for the first time by this staff writer. slept 7 hours overnight. labs continue to not support active auto-immune illness. remains with paranoia about being murdered and delusions re swapping. continue current mgmt. 06/21: labs continue to not support active auto-immune disease. gradual daily improvements continue. continue current mgmt. 06/22: labs continue to not support active auto-immune disease. gradual daily improvements continue. continue current mgmt. Reason for continued inpatient stay Substantial Risk for: inability to function and rapid decompensation Time Spent With Patient Time: Total time managing care of this patient today __25__ minutes.
[2024-06-22 19:05] VITALS: BP 126/94; PULSE 116; RESP 16; TEMP 36.4; O2SAT 99
[2024-06-22] MEDS: Divalproex Sodium ER 500 MG TAB.ER.24H 1000 MG PO (21:18)
[2024-06-22] MEDS: OLANZapine 10 MG TABLET 30 MG PO (21:18)
[2024-06-22] MEDS: LORazepam 1 MG TABLET 2 MG PO (21:19)
[2024-06-23] MEDS: Levothyroxine Sodium 25 MCG TABLET PO (07:05)
[2024-06-23 08:34] VITALS: BP 125/79; PULSE 103; TEMP 36.4; O2SAT 99
[2024-06-23] MEDS: hydrOXYzine HCL 25 MG TABLET PO (08:58)
[2024-06-23] MEDS: mycophenolate mofetiL 250 MG CAPSULE 1000 MG PO ×2 (08:59→21:26)
[2024-06-23] MEDS: LORazepam 1 MG TABLET PO (08:59)
[2024-06-23] MEDS: Metoprolol Succinate ER 50 MG TAB.ER.24H PO (08:59)
[2024-06-23] MEDS: Fludrocortisone Acetate 0.1 MG TABLET PO (08:59)
[2024-06-23] MEDS: Lithium Carbonate ER 300 MG TABLET.ER 600 MG PO ×2 (08:59→21:26)
--- NOTE | 2024-06-23 17:03 | HO.PSYCHPN ---
Subjective Subjective Date of Service: 06/23/24 Reason For Visit: kristie/psychosis Interim History: remains slower, sleeping more, questioning delusions such as brain tumor. per staff, yesterday pacing, talking to self. slept much of the morning. up x2 overnight. slept about 6 hours. Mental Status Exam Mental Status Exam Narrative: dressed in [facility] angelita. disheveled. pacing, more slowly than prior. rapid self-dialogue, softer than before. paranoid delusions re peoples' having been replaced, questioning whether she has a brain tumor. affect constricted, normo-intense. mood not assessed. no SI/HI/AVH expressed. Diagnostics Vital Signs (24Hr): Vital Signs - 24 hr 06/22/24 19:05 06/23/24 08:34 Temperature 97.5 F 97.5 F Pulse Rate 116 H 103 H Respiratory Rate 16 Blood Pressure 126/94 H 125/79 Pulse Oximetry 99 99 Oxygen Delivery Method Room Air Room Air BMI result Body Mass Index 22.3 Labs 06/12/24 08:03 06/17/24 05:39 Labs: Laboratory Results - last 48 hr 06/15/24 09:12 IgG Total 1298 IgA Total 178 IgM 276 MOE Interpretation SEE NOTE Imaging Radiology Impressions: ITS Impressions Head CT 06/11/24 11:34 IMPRESSION: 1. Normal CT scan of the brain. 2. No intracranial hemorrhage or skull fracture is seen. 3. No evidence of space occupying lesion could be found. 4. The current plain CT scan of the brain shows no diagnostic evidence of acute cerebral infarction. Cervical Spine CT 06/11/24 17:25 IMPRESSION: No acute intracranial hemorrhage. No acute, displaced cervical spine fracture. Head CT 06/11/24 17:25 IMPRESSION: No acute intracranial hemorrhage. No acute, displaced cervical spine fracture. Medications Medications Current Medications Acetaminophen (Acetaminophen 325 Mg Tablet) 650 mg PO Q6H PRN PRN Reason: Headache/Pain Mild Scale (1-3) Last Admin: 06/13/24 22:36 Dose: 650 mg Al Hydroxide/Mg Hydroxide (Magnesium Hydrox/Alum Hydrox 30 Ml Oral.Susp) 30 ml PO Q6H PRN PRN Reason: Heartburn/Nausea Divalproex Sodium (Divalproex Sodium Er 500 Mg Tab.Er.24h) 1,000 mg PO BEDTIME [facility] Last Admin: 06/22/24 21:18 Dose: 1,000 mg Fludrocortisone Acetate (Fludrocortisone Acetate 0.1 Mg Tablet) 0.1 mg PO DAILY [facility] Last Admin: 06/23/24 08:59 Dose: 0.1 mg Hydroxyzine HCl (Hydroxyzine Hcl 25 Mg Tablet) 25 mg PO Q6H PRN PRN Reason: Anxiety Last Admin: 06/23/24 08:58 Dose: 25 mg Levothyroxine Sodium (Levothyroxine Sodium 25 Mcg Tablet) 25 mcg PO DAILY@0600 [facility] Last Admin: 06/23/24 07:05 Dose: 25 mcg [place] Carbonate ([place] Carbonate Er 300 Mg Tablet.Er) 600 mg PO BID [facility] Last Admin: 06/23/24 08:59 Dose: 600 mg Lorazepam (Lorazepam 1 Mg Tablet) 1 mg PO Q4H PRN PRN Reason: agitation Last Admin: 06/23/24 08:59 Dose: 1 mg Lorazepam (Lorazepam 1 Mg Tablet) 2 mg PO BEDTIME [facility] Last Admin: 06/22/24 21:19 Dose: 2 mg Magnesium Hydroxide (Milk Of Magnesia 30 Ml Oral.Susp) 30 ml PO DAILY PRN PRN Reason: Constipation Metoprolol Succinate (Metoprolol Succinate Er 50 Mg Tab.Er.24h) 50 mg PO DAILY [facility]; Protocol Last Admin: 06/23/24 08:59 Dose: 50 mg Mycophenolate Mofetil (Mycophenolate Mofetil 250 Mg Capsule) 1,000 mg PO BID [facility] Last Admin: 06/23/24 08:59 Dose: 1,000 mg Nicotine Polacrilex (Nicotine Polacrilex 2 Mg Gum) 4 mg BUCCAL Q2H PRN PRN Reason: Nicotine Cravings Olanzapine (Olanzapine 10 Mg Tablet) 30 mg PO BEDTIME [facility] Last Admin: 06/22/24 21:18 Dose: 30 mg Olanzapine (Olanzapine Odt 10 Mg Tab.Rapdis) 5 mg TRANSLINGU Q4H PRN PRN Reason: agitation Last Admin: 06/22/24 09:13 Dose: 5 mg Allergies Allergies Allergy/AdvReac Type Severity Reaction Status Date / Time No Known Allergies Allergy Verified 06/10/24 15:16 Assessment & Plan Assessment & Plan (1) Acute psychosis: Status: Acute Code(s): F23 - Brief psychotic disorder (2) SLE (systemic lupus erythematosus related syndrome): Status: Acute Code(s): M32.9 - Systemic lupus erythematosus, unspecified (3) Autoimmune hepatitis: Status: Acute Code(s): K75.4 - Autoimmune hepatitis (4) [place] thyroiditis: Status: Acute Code(s): E06.3 - Autoimmune thyroiditis (5) Crohn disease: Status: Acute Code(s): K50.90 - Crohn's disease, unspecified, without complications (6) POTS (postural orthostatic tachycardia syndrome): Status: Acute Code(s): G90.A - Postural orthostatic tachycardia syndrome [POTS] (7) Bipolar disorder: Status: Acute Code(s): F31.9 - Bipolar disorder, unspecified Plan 06/11: restart previous med regimen, assuming it is reasonable and if collateral bears out that it was effective. zyprexa and ativan for now. 06/12: met with parents, got meds list from pharmacy. verified father has bipolar disorder. 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 will restart medical regimen as well as psychiatric. kristie/psychosis may be as inherited from father or possibly immune-mediated. will address both potential etiologies simultaneously. 06/13: more subdued and slowed today than yesterday. poor sleep - increase HS zyprexa to 10 mg. 40 min call with family. check lyme titer. consult rheum, GI, hospitalist. continue current mgmt otherwise and observe for improvement. [facility] contacted, reported pt is no longer in their practice and hasn't been seen for more than a year. 06/14: hospitalist recs re POTS appreciated. return metoprolol to outpt dosing of 50 mg daily as pt HR 99. awaiting GI eval. case discussed with rheum, Dr. Carmona, who is not available for full consult but did advise. will order labs as instructed and request neuro consult as well for opinion re LP and brain MRI. pt does continue more subdued and did actually sleep 8-9 hours last night, which is a striking improvement. 06/15: seen by neuro, low index of suspicion for central inflammatory process. rec MRI but no LP for now. ESR/CRP WNL today, other labs pending. increase HS zyprexa to 15 mg. no change in presentation from yesterday. 06/16 we are ordering blood work with lithium level for tomorrow. We are going to keep on Zyprexa 15 and reassess tomorrow. 06/17 lithium level in therapeutic level. BMP within normal limits. The patient is grossly disorganized still psychotic. 06/18: no improvement over w/e. lithium 0.83. add VPA 1000 QHS. increase HS zyprexa to 30 mg, decrease PRNs to 5 mg each. add ativan 2 mg QHS. sleeping less than 4 hours per night. order brain MRI, unclear if pt will be able to tolerate study. 06/19: hold brain MRI due to need to be still for 30 minutes. slept 2 hours overnight but then from 1000 through afternoon. appeared to be pacing more slowly and less voluble today. per rheum review of chart, labs not suggestive of active SLE. 06/20: remains slower than prior, observed in milieu not self-dialoguing for the first time by this display card writer. slept 7 hours overnight. labs continue to not support active auto-immune illness. remains with paranoia about being murdered and delusions re swapping. continue current mgmt. 06/21: labs continue to not support active auto-immune disease. gradual daily improvements continue. continue current mgmt. 06/22: labs continue to not support active auto-immune disease. gradual daily improvements continue. continue current mgmt. 06/23: continues sleeping more, slower pacing and speech. today questioned delusion that she has a brain tumor. Reason for continued inpatient stay Substantial Risk for: inability to function and rapid decompensation Time Spent With Patient Time: Total time managing care of this patient today ____ minutes.
[2024-06-23 20:56] LABS: Ammonia 57 umol/L (13-55)
[2024-06-23 20:58] LABS: Lithium 0.74 mmol/L (0.60-1.20); Valproate 52.5 mcg/mL (50.0-100.0)
[2024-06-23 21:11] LABS: Alanine Aminotransferase 31 U/L (0-31); Alkaline Phosphatase 95 U/L (39-117); Anion Gap 13 (12-20); Aspartate Amino Transferase 18 U/L (5-31); Bilirubin Direct 0.1 mg/dL (0.0-0.5); Blood Urea Nitrogen 14 mg/dL (9-16); Calcium 9.8 mg/dL (8.4-10.2); Carbon Dioxide 25 mmol/L (22-29); Chloride 109 mmol/L (96-108); Creatinine Clr Calc Pharmacy 72.4; Estimated Glomerular Filt Rate > 60; Glucose Random 168 mg/dL (60-115); Potassium 3.9 mmol/L (3.3-5.1); Sodium 143 mmol/L (135-145); Total Protein 7.1 g/dL (6.5-8.0)
[2024-06-23 21:15] VITALS: BP 130/94; PULSE 101; RESP 18; TEMP 36.8; O2SAT 98
[2024-06-23] MEDS: OLANZapine 10 MG TABLET 30 MG PO (21:25)
[2024-06-23] MEDS: Divalproex Sodium ER 500 MG TAB.ER.24H 1000 MG PO (21:26)
[2024-06-23] MEDS: LORazepam 1 MG TABLET 2 MG PO (21:27)
[2024-06-23 21:40] LABS: Bilirubin Total 0.4 mg/dL (0.0-1.0)
[2024-06-24] MEDS: Levothyroxine Sodium 25 MCG TABLET PO (07:37)
[2024-06-24 07:43] VITALS: BP 116/80; PULSE 95; RESP 16; TEMP 37.1; O2SAT 98
[2024-06-24] MEDS: LORazepam 1 MG TABLET PO (09:27)
[2024-06-24] MEDS: hydrOXYzine HCL 25 MG TABLET PO (09:28)
[2024-06-24] MEDS: Fludrocortisone Acetate 0.1 MG TABLET PO (09:28)
[2024-06-24] MEDS: Lithium Carbonate ER 300 MG TABLET.ER 600 MG PO ×2 (09:28→20:49)
[2024-06-24] MEDS: mycophenolate mofetiL 250 MG CAPSULE 1000 MG PO ×2 (09:28→20:51)
[2024-06-24] MEDS: Metoprolol Succinate ER 50 MG TAB.ER.24H PO (09:28)
[2024-06-24] MEDS: OLANZapine ODT 10 MG TAB.RAPDIS 5 MG TRANSLINGU (09:29)
--- NOTE | 2024-06-24 16:38 | P.PNPSI_ITS ---
Subjective Subjective Date of Service: 06/24/24 Reason For Visit: kristie/psychosis Interim History: intermittently napping and wandering the halls. softly talking to self. per staff, slept 7 hours overnight. napping on and off days. taking meds. on being offered her medications: it's poison don't take them. take your meds. Mental Status Exam Mental Status Exam Narrative: dressed in hospital [facility]. disheveled. pacing, more slowly than prior. rapid self-dialogue, softer than before. paranoid delusions re peoples' having been replaced, questioning whether she has a brain tumor. affect constricted, normo- intense. mood not assessed. no SI/HI/AVH expressed. Diagnostics Vital Signs (24Hr): Vital Signs - 24 hr 06/23/24 21:15 06/24/24 07:43 Temperature 98.3 F 98.7 F Pulse Rate 101 H 95 Respiratory Rate 18 16 Blood Pressure 130/94 H 116/80 Pulse Oximetry 98 98 Oxygen Delivery Method Room Air Room Air BMI result Body Mass Index 22.3 Labs 06/12/24 08:03 06/23/24 20:30 Labs: Laboratory Results - last 48 hr 06/23/24 20:30 Sodium 143 Potassium 3.9 Chloride 109 H Carbon Dioxide 25 Anion Gap 13 BUN 14 Creatinine 0.74 Estim Creat Clear Calc 72.4 Estimated GFR > 60 Random Glucose 168 H Calcium 9.8 Total Bilirubin 0.4 Direct Bilirubin 0.1 AST 18 ALT 31 Alkaline Phosphatase 95 Ammonia 57 H Total Protein 7.1 Albumin 4.0 Valproic Acid 52.5 [place] 0.74 Imaging Radiology Impressions: ITS Impressions Head CT 06/11/24 11:34 IMPRESSION: 1. Normal CT scan of the brain. 2. No intracranial hemorrhage or skull fracture is seen. 3. No evidence of space occupying lesion could be found. 4. The current plain CT scan of the brain shows no diagnostic evidence of acute cerebral infarction. Cervical Spine CT 06/11/24 17:25 IMPRESSION: No acute intracranial hemorrhage. No acute, displaced cervical spine fracture. Head CT 06/11/24 17:25 IMPRESSION: No acute intracranial hemorrhage. No acute, displaced cervical spine fracture. Medications Medications Current Medications Acetaminophen (Acetaminophen 325 Mg Tablet) 650 mg PO Q6H PRN PRN Reason: Headache/Pain Mild Scale (1-3) Last Admin: 06/13/24 22:36 Dose: 650 mg Al Hydroxide/Mg Hydroxide (Magnesium Hydrox/Alum Hydrox 30 Ml Oral.Susp) 30 ml PO Q6H PRN PRN Reason: Heartburn/Nausea Divalproex Sodium (Divalproex Sodium Er 500 Mg Tab.Er.24h) 1,000 mg PO BEDTIME [facility] Last Admin: 06/23/24 21:26 Dose: 1,000 mg Fludrocortisone Acetate (Fludrocortisone Acetate 0.1 Mg Tablet) 0.1 mg PO DAILY [facility] Last Admin: 06/24/24 09:28 Dose: 0.1 mg Hydroxyzine HCl (Hydroxyzine Hcl 25 Mg Tablet) 25 mg PO Q6H PRN PRN Reason: Anxiety Last Admin: 06/24/24 09:28 Dose: 25 mg Levothyroxine Sodium (Levothyroxine Sodium 25 Mcg Tablet) 25 mcg PO DAILY@0600 [facility] Last Admin: 06/24/24 07:37 Dose: 25 mcg [place] Carbonate ([place] Carbonate Er 300 Mg Tablet.Er) 600 mg PO BID [facility] Last Admin: 06/24/24 09:28 Dose: 600 mg Lorazepam (Lorazepam 1 Mg Tablet) 1 mg PO Q4H PRN PRN Reason: agitation Last Admin: 06/24/24 09:27 Dose: 1 mg Lorazepam (Lorazepam 1 Mg Tablet) 2 mg PO BEDTIME [facility] Last Admin: 06/23/24 21:27 Dose: 2 mg Magnesium Hydroxide (Milk Of Magnesia 30 Ml Oral.Susp) 30 ml PO DAILY PRN PRN Reason: Constipation Metoprolol Succinate (Metoprolol Succinate Er 50 Mg Tab.Er.24h) 50 mg PO DAILY [facility]; Protocol Last Admin: 06/24/24 09:28 Dose: 50 mg Mycophenolate Mofetil (Mycophenolate Mofetil 250 Mg Capsule) 1,000 mg PO BID [facility] Last Admin: 06/24/24 09:28 Dose: 1,000 mg Nicotine Polacrilex (Nicotine Polacrilex 2 Mg Gum) 4 mg BUCCAL Q2H PRN PRN Reason: Nicotine Cravings Olanzapine (Olanzapine 10 Mg Tablet) 30 mg PO BEDTIME [facility] Last Admin: 06/23/24 21:25 Dose: 30 mg Olanzapine (Olanzapine Odt 10 Mg Tab.Rapdis) 5 mg TRANSLINGU Q4H PRN PRN Reason: agitation Last Admin: 06/24/24 09:29 Dose: 5 mg Allergies Allergies Allergy/AdvReac Type Severity Reaction Status Date / Time No Known Allergies Allergy Verified 06/10/24 15:16 Assessment & Plan Assessment & Plan (1) Acute psychosis: Status: Acute Code(s): F23 - Brief psychotic disorder (2) SLE (systemic lupus erythematosus related syndrome): Status: Acute Code(s): M32.9 - Systemic lupus erythematosus, unspecified (3) Autoimmune hepatitis: Status: Acute Code(s): K75.4 - Autoimmune hepatitis (4) [place] thyroiditis: Status: Acute Code(s): E06.3 - Autoimmune thyroiditis (5) Crohn disease: Status: Acute Code(s): K50.90 - Crohn's disease, unspecified, without complications (6) POTS (postural orthostatic tachycardia syndrome): Status: Acute Code(s): G90.A - Postural orthostatic tachycardia syndrome [POTS] (7) Bipolar disorder: Status: Acute Code(s): F31.9 - Bipolar disorder, unspecified Plan 06/11: restart previous med regimen, assuming it is reasonable and if collateral bears out that it was effective. zyprexa and ativan for now. 06/12: met with parents, got meds list from pharmacy. verified father has bipolar disorder. 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 will restart medical regimen as well as psychiatric. kristie/psychosis may be as inherited from father or possibly immune-mediated. will address both potential etiologies simultaneously. 06/13: more subdued and slowed today than yesterday. poor sleep - increase HS zyprexa to 10 mg. 40 min call with family. check lyme titer. consult rheum, GI, hospitalist. continue current mgmt otherwise and observe for improvement. [facility] contacted, reported pt is no longer in their practice and hasn't been seen for more than a year. 06/14: hospitalist recs re POTS appreciated. return metoprolol to outpt dosing of 50 mg daily as pt HR 99. awaiting GI eval. case discussed with rheum, Dr. Carmona, who is not available for full consult but did advise. will order labs as instructed and request neuro consult as well for opinion re LP and brain MRI. pt does continue more subdued and did actually sleep 8-9 hours last night, which is a striking improvement. 06/15: seen by neuro, low index of suspicion for central inflammatory process. rec MRI but no LP for now. ESR/CRP WNL today, other labs pending. increase HS zyprexa to 15 mg. no change in presentation from yesterday. 06/16 we are ordering blood work with lithium level for tomorrow. We are going to keep on Zyprexa 15 and reassess tomorrow. 06/17 lithium level in therapeutic level. BMP within normal limits. The patient is grossly disorganized still psychotic. 06/18: no improvement over w/e. lithium 0.83. add VPA 1000 QHS. increase HS zyprexa to 30 mg, decrease PRNs to 5 mg each. add ativan 2 mg QHS. sleeping less than 4 hours per night. order brain MRI, unclear if pt will be able to tolerate study. 06/19: hold brain MRI due to need to be still for 30 minutes. slept 2 hours overnight but then from 1000 through afternoon. appeared to be pacing more slowly and less voluble today. per rheum review of chart, labs not suggestive of active SLE. 06/20: remains slower than prior, observed in milieu not self-dialoguing for the first time by this underwriter solicitation director. slept 7 hours overnight. labs continue to not support active auto-immune illness. remains with paranoia about being murdered and delusions re swapping. continue current mgmt. 06/21: labs continue to not support active auto-immune disease. gradual daily improvements continue. continue current mgmt. 06/22: labs continue to not support active auto-immune disease. gradual daily improvements continue. continue current mgmt. 06/23: continues sleeping more, slower pacing and speech. today questioned delusion that she has a brain tumor. 06/24: lithium and VPA therapeutic. ammonia slightly elevated. pursue MRI and GI consult tomorrow. improved but not well. met with parents for extended period. Reason for continued inpatient stay Substantial Risk for: inability to function and rapid decompensation Time Spent With Patient Time: Total time managing care of this patient today __45__ minutes.
[2024-06-24 20:00] VITALS: BP 132/89; PULSE 96; RESP 14; TEMP 36.9; O2SAT 99
[2024-06-24] MEDS: LORazepam 1 MG TABLET 2 MG PO (20:48)
[2024-06-24] MEDS: Divalproex Sodium ER 500 MG TAB.ER.24H 1000 MG PO (20:50)
[2024-06-24] MEDS: OLANZapine 10 MG TABLET 30 MG PO (20:50)
[2024-06-24 23:09] LABS: Beta-2 Glycoprotein IgA 2.3 U/mL (<20.0); Beta-2 Glycoprotein IgG <2.0 U/mL (<20.0); Beta-2 Glycoprotein IgM <2.0 U/mL (<20.0)
[2024-06-25] MEDS: Levothyroxine Sodium 25 MCG TABLET PO (07:07)
[2024-06-25 07:35] VITALS: BP 116/64; PULSE 83; RESP 12; TEMP 37; O2SAT 99
[2024-06-25 09:15] VITALS: BP 123/80; PULSE 103
[2024-06-25] MEDS: Metoprolol Succinate ER 50 MG TAB.ER.24H PO (09:18)
[2024-06-25] MEDS: Lithium Carbonate ER 300 MG TABLET.ER 600 MG PO ×2 (09:18→21:32)
[2024-06-25] MEDS: Fludrocortisone Acetate 0.1 MG TABLET PO (09:19)
[2024-06-25] MEDS: mycophenolate mofetiL 250 MG CAPSULE 1000 MG PO ×2 (09:19→21:34)
--- NOTE | 2024-06-25 11:26 | P.PNPSI_ITS ---
Subjective Subjective Date of Service: 06/25/24 Reason For Visit: kristie/psychosis Interim History: slower pacing, less self-dialogue. reports her thoughts are confusing and disconcerting. hopeful that her parents have not been replaced but open to the possibility that they have been, by the [employer]. per staff, anxious. less RIS. able to ask questions and interact better than prior. slept 7 hours. no self-dialoguing noted NOC. Mental Status Exam Mental Status Exam Narrative: dressed in hospital angelita. disheveled. pacing, more slowly than prior. rapid self-dialogue, softer than before. paranoid delusions that people might be replaced (improved from that they HAVE BEEN replaced). affect constricted, hypo-intense, non-labile. mood not assessed. denies AH. no SI/HI/VH expressed. Diagnostics Vital Signs (24Hr): Vital Signs - 24 hr 06/24/24 20:00 06/25/24 07:35 06/25/24 09:15 Temperature 98.5 F 98.6 F Pulse Rate 96 83 103 H Respiratory Rate 14 12 Blood Pressure 132/89 116/64 123/80 Pulse Oximetry 99 99 Oxygen Delivery Method Room Air Room Air BMI result Body Mass Index 22.3 Labs 06/12/24 08:03 06/23/24 20:30 Labs: Laboratory Results - last 48 hr 06/15/24 06/23/24 09:12 20:30 Sodium 143 Potassium 3.9 Chloride 109 H Carbon Dioxide 25 Anion Gap 13 BUN 14 Creatinine 0.74 Estim Creat Clear Calc 72.4 Estimated GFR > 60 Random Glucose 168 H Calcium 9.8 Total Bilirubin 0.4 Direct Bilirubin 0.1 AST 18 ALT 31 Alkaline Phosphatase 95 Ammonia 57 H Total Protein 7.1 Albumin 4.0 Valproic Acid 52.5 [place] 0.74 Beta-2-GPI IgG Ab <2.0 Beta-2-GPI IgA Ab 2.3 Beta-2-GPI IgM Ab <2.0 Imaging Radiology Impressions: ITS Impressions Head CT 06/11/24 11:34 IMPRESSION: 1. Normal CT scan of the brain. 2. No intracranial hemorrhage or skull fracture is seen. 3. No evidence of space occupying lesion could be found. 4. The current plain CT scan of the brain shows no diagnostic evidence of acute cerebral infarction. Cervical Spine CT 06/11/24 17:25 IMPRESSION: No acute intracranial hemorrhage. No acute, displaced cervical spine fracture. Head CT 06/11/24 17:25 IMPRESSION: No acute intracranial hemorrhage. No acute, displaced cervical spine fracture. Medications Medications Current Medications Acetaminophen (Acetaminophen 325 Mg Tablet) 650 mg PO Q6H PRN PRN Reason: Headache/Pain Mild Scale (1-3) Last Admin: 06/13/24 22:36 Dose: 650 mg Al Hydroxide/Mg Hydroxide (Magnesium Hydrox/Alum Hydrox 30 Ml Oral.Susp) 30 ml PO Q6H PRN PRN Reason: Heartburn/Nausea Divalproex Sodium (Divalproex Sodium Er 500 Mg Tab.Er.24h) 1,000 mg PO BEDTIME [facility] Last Admin: 06/24/24 20:50 Dose: 1,000 mg Fludrocortisone Acetate (Fludrocortisone Acetate 0.1 Mg Tablet) 0.1 mg PO DAILY [facility] Last Admin: 06/25/24 09:19 Dose: 0.1 mg Hydroxyzine HCl (Hydroxyzine Hcl 25 Mg Tablet) 25 mg PO Q6H PRN PRN Reason: Anxiety Last Admin: 06/24/24 09:28 Dose: 25 mg Levothyroxine Sodium (Levothyroxine Sodium 25 Mcg Tablet) 25 mcg PO DAILY@0600 [facility] Last Admin: 06/25/24 07:07 Dose: 25 mcg [place] Carbonate ([place] Carbonate Er 300 Mg Tablet.Er) 600 mg PO BID [facility] Last Admin: 06/25/24 09:18 Dose: 600 mg Lorazepam (Lorazepam 1 Mg Tablet) 1 mg PO Q4H PRN PRN Reason: agitation Last Admin: 06/24/24 09:27 Dose: 1 mg Lorazepam (Lorazepam 1 Mg Tablet) 2 mg PO BEDTIME [facility] Last Admin: 06/24/24 20:48 Dose: 2 mg Magnesium Hydroxide (Milk Of Magnesia 30 Ml Oral.Susp) 30 ml PO DAILY PRN PRN Reason: Constipation Metoprolol Succinate (Metoprolol Succinate Er 50 Mg Tab.Er.24h) 50 mg PO DAILY [facility]; Protocol Last Admin: 06/25/24 09:18 Dose: 50 mg Mycophenolate Mofetil (Mycophenolate Mofetil 250 Mg Capsule) 1,000 mg PO BID [facility] Last Admin: 06/25/24 09:19 Dose: 1,000 mg Nicotine Polacrilex (Nicotine Polacrilex 2 Mg Gum) 4 mg BUCCAL Q2H PRN PRN Reason: Nicotine Cravings Olanzapine (Olanzapine 10 Mg Tablet) 30 mg PO BEDTIME [facility] Last Admin: 06/24/24 20:50 Dose: 30 mg Olanzapine (Olanzapine Odt 10 Mg Tab.Rapdis) 5 mg TRANSLINGU Q4H PRN PRN Reason: agitation Last Admin: 06/24/24 09:29 Dose: 5 mg Allergies Allergies Allergy/AdvReac Type Severity Reaction Status Date / Time No Known Allergies Allergy Verified 06/10/24 15:16 Assessment & Plan Assessment & Plan (1) Acute psychosis: Status: Acute Code(s): F23 - Brief psychotic disorder (2) SLE (systemic lupus erythematosus related syndrome): Status: Acute Code(s): M32.9 - Systemic lupus erythematosus, unspecified (3) Autoimmune hepatitis: Status: Acute Code(s): K75.4 - Autoimmune hepatitis (4) [place] thyroiditis: Status: Acute Code(s): E06.3 - Autoimmune thyroiditis (5) Crohn disease: Status: Acute Code(s): K50.90 - Crohn's disease, unspecified, without complications (6) POTS (postural orthostatic tachycardia syndrome): Status: Acute Code(s): G90.A - Postural orthostatic tachycardia syndrome [POTS] (7) Bipolar disorder: Status: Acute Code(s): F31.9 - Bipolar disorder, unspecified Plan 06/11: restart previous med regimen, assuming it is reasonable and if collateral bears out that it was effective. zyprexa and ativan for now. 06/12: met with parents, got meds list from pharmacy. verified father has bipolar disorder. 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 will restart medical regimen as well as psychiatric. kristie/psychosis may be as inherited from father or possibly immune-mediated. will address both potential etiologies simultaneously. 06/13: more subdued and slowed today than yesterday. poor sleep - increase HS zyprexa to 10 mg. 40 min call with family. check lyme titer. consult rheum, GI, hospitalist. continue current mgmt otherwise and observe for improvement. [facility] contacted, reported pt is no longer in their practice and hasn't been seen for more than a year. 8/8: hospitalist j luis re POTS appreciated. return metoprolol to outpt dosing of 50 mg daily as pt HR 99. awaiting GI eval. case discussed with rheum, Dr. Carmona, who is not available for full consult but did advise. will order labs as instructed and request neuro consult as well for opinion re LP and brain MRI. pt does continue more subdued and did actually sleep 8-9 hours last night, which is a striking improvement. 06/15: seen by neuro, low index of suspicion for central inflammatory process. rec MRI but no LP for now. ESR/CRP WNL today, other labs pending. increase HS zyprexa to 15 mg. no change in presentation from yesterday. 06/16 we are ordering blood work with lithium level for tomorrow. We are going to keep on Zyprexa 15 and reassess tomorrow. 06/17 lithium level in therapeutic level. BMP within normal limits. The patient is grossly disorganized still psychotic. 06/18: no improvement over w/e. lithium 0.83. add VPA 1000 QHS. increase HS zyprexa to 30 mg, decrease PRNs to 5 mg each. add ativan 2 mg QHS. sleeping less than 4 hours per night. order brain MRI, unclear if pt will be able to tolerate study. 06/19: hold brain MRI due to need to be still for 30 minutes. slept 2 hours overnight but then from 1000 through afternoon. appeared to be pacing more slowly and less voluble today. per rheum review of chart, labs not suggestive of active SLE. 06/20: remains slower than prior, observed in milieu not self-dialoguing for the first time by this insurance underwriter sales. slept 7 hours overnight. labs continue to not support active auto-immune illness. remains with paranoia about being murdered and delusions re swapping. continue current mgmt. 06/21: labs continue to not support active auto-immune disease. gradual daily improvements continue. continue current mgmt. 06/22: labs continue to not support active auto-immune disease. gradual daily improvements continue. continue current mgmt. 06/23: continues sleeping more, slower pacing and speech. today questioned delusion that she has a brain tumor. 06/24: lithium and VPA therapeutic. ammonia slightly elevated. pursue MRI and GI consult tomorrow. improved but not well. met with parents for extended period. 06/25: capgras delusions weakened from people HAVE BEEN replaced to people MIGHT GET replaced. continue current mgmt. Reason for continued inpatient stay Substantial Risk for: inability to function and rapid decompensation Time Spent With Patient Time: Total time managing care of this patient today __35__ minutes.
[2024-06-25] MEDS: LORazepam 1 MG TABLET 2 MG PO ×2 (15:12→21:34)
[2024-06-25 20:00] VITALS: BP 135/90; PULSE 112; RESP 16; TEMP 36.9; O2SAT 98
[2024-06-25] MEDS: Divalproex Sodium ER 500 MG TAB.ER.24H 1000 MG PO (21:33)
[2024-06-25] MEDS: OLANZapine 10 MG TABLET 30 MG PO (21:33)
[2024-06-25] MEDS: Acetaminophen 325 MG TABLET 650 MG PO (21:35)
--- NOTE | 2024-06-26 00:01 | PC.NURSE ---
Pt accidentally pour hot tea on her left thigh at the kitchen area. On examination by TW, the skin appeared reddish, no blister or swollen or bruises or open wound on skin. call center support representative provider and hospitalist informed. Pt c/o mild pain and requested for Tylenol, ice pack applied to skin.
[2024-06-26] MEDS: Levothyroxine Sodium 25 MCG TABLET PO (07:10)
[2024-06-26 07:55] VITALS: BP 106/68; PULSE 97; RESP 18; TEMP 36.9; O2SAT 97
[2024-06-26] MEDS: Metoprolol Succinate ER 50 MG TAB.ER.24H PO (08:44)
[2024-06-26] MEDS: Lithium Carbonate ER 300 MG TABLET.ER 600 MG PO ×2 (08:44→20:42)
[2024-06-26] MEDS: mycophenolate mofetiL 250 MG CAPSULE 1000 MG PO ×2 (08:45→20:42)
[2024-06-26] MEDS: Fludrocortisone Acetate 0.1 MG TABLET PO (08:45)
[2024-06-26] MEDS: LORazepam 1 MG TABLET PO (11:36)
--- NOTE | 2024-06-26 15:51 | P.PNPSI_ITS ---
Subjective Subjective Date of Service: 06/26/24 Reason For Visit: kristie/psychosis Interim History: able to engage in more sustained conversation about her restlessness; longest this ghost writer has observed pt to be able to focus on one issue. pt seen with mother, conversation had with parents separately as well. per staff, on Q5s. c/o anxiety. blunted. pacing. self-dialoguing. reports she has bard powerport implanted for remicaid infusions. Mental Status Exam Mental Status Exam Narrative: dressed in hospital angelita. disheveled. pacing, more slowly than prior. less self-dialogue, softer than before. able to attend to conversation with MD and mother for 5 minutes. thoughts logical. no delusions or paranoia expressed. affect constricted, hypo-intense, non-labile. mood not assessed. no SI/HI/AVH expressed. Diagnostics Vital Signs (24Hr): Vital Signs - 24 hr 06/25/24 20:00 06/26/24 07:55 Temperature 98.4 F 98.4 F Pulse Rate 112 H 97 Respiratory Rate 16 18 Blood Pressure 135/90 H 106/68 Pulse Oximetry 98 97 Oxygen Delivery Method Nasal Cannula Room Air BMI result Body Mass Index 22.3 Labs 06/12/24 08:03 06/23/24 20:30 Labs: Laboratory Results - last 48 hr 06/15/24 06/15/24 09:11 09:12 Abnorm Protein Band 1 TNP Abnorm Protein Band 2 TNP Abnorm Protein Band 3 TNP Anti-ds DNA Ab Confirm TNP Beta-2-GPI IgG Ab <2.0 Beta-2-GPI IgA Ab 2.3 Beta-2-GPI IgM Ab <2.0 Imaging Radiology Impressions: ITS Impressions Head CT 06/11/24 11:34 IMPRESSION: 1. Normal CT scan of the brain. 2. No intracranial hemorrhage or skull fracture is seen. 3. No evidence of space occupying lesion could be found. 4. The current plain CT scan of the brain shows no diagnostic evidence of acute cerebral infarction. Cervical Spine CT 06/11/24 17:25 IMPRESSION: No acute intracranial hemorrhage. No acute, displaced cervical spine fracture. Head CT 06/11/24 17:25 IMPRESSION: No acute intracranial hemorrhage. No acute, displaced cervical spine fracture. Abdomen X-Ray 06/25/24 16:15 IMPRESSION: Unremarkable examination. Chest X-Ray 06/25/24 16:15 IMPRESSION: Chest willa catheter projects over the cavoatrial junction, unclear if this is MRI compatible. Medications Medications Current Medications Acetaminophen (Acetaminophen 325 Mg Tablet) 650 mg PO Q6H PRN PRN Reason: Headache/Pain Mild Scale (1-3) Last Admin: 06/25/24 21:35 Dose: 650 mg Al Hydroxide/Mg Hydroxide (Magnesium Hydrox/Alum Hydrox 30 Ml Oral.Susp) 30 ml PO Q6H PRN PRN Reason: Heartburn/Nausea Divalproex Sodium (Divalproex Sodium Er 500 Mg Tab.Er.24h) 1,000 mg PO BEDTIME [facility] Last Admin: 06/25/24 21:33 Dose: 1,000 mg Fludrocortisone Acetate (Fludrocortisone Acetate 0.1 Mg Tablet) 0.1 mg PO DAILY [facility] Last Admin: 06/26/24 08:45 Dose: 0.1 mg Hydroxyzine HCl (Hydroxyzine Hcl 25 Mg Tablet) 25 mg PO Q6H PRN PRN Reason: Anxiety Last Admin: 06/24/24 09:28 Dose: 25 mg Levothyroxine Sodium (Levothyroxine Sodium 25 Mcg Tablet) 25 mcg PO DAILY@0600 [facility] Last Admin: 06/26/24 07:10 Dose: 25 mcg [place] Carbonate ([place] Carbonate Er 300 Mg Tablet.Er) 600 mg PO BID [facility] Last Admin: 06/26/24 08:44 Dose: 600 mg Lorazepam (Lorazepam 1 Mg Tablet) 1 mg PO Q4H PRN PRN Reason: agitation Last Admin: 06/26/24 11:36 Dose: 1 mg Lorazepam (Lorazepam 1 Mg Tablet) 2 mg PO BEDTIME [facility] Magnesium Hydroxide (Milk Of Magnesia 30 Ml Oral.Susp) 30 ml PO DAILY PRN PRN Reason: Constipation Metoprolol Succinate (Metoprolol Succinate Er 50 Mg Tab.Er.24h) 50 mg PO DAILY [facility]; Protocol Last Admin: 06/26/24 08:44 Dose: 50 mg Mycophenolate Mofetil (Mycophenolate Mofetil 250 Mg Capsule) 1,000 mg PO BID [facility] Last Admin: 06/26/24 08:45 Dose: 1,000 mg Nicotine Polacrilex (Nicotine Polacrilex 2 Mg Gum) 4 mg BUCCAL Q2H PRN PRN Reason: Nicotine Cravings Olanzapine (Olanzapine 10 Mg Tablet) 30 mg PO BEDTIME [facility] Last Admin: 06/25/24 21:33 Dose: 30 mg Olanzapine (Olanzapine Odt 10 Mg Tab.Rapdis) 5 mg TRANSLINGU Q4H PRN PRN Reason: agitation Last Admin: 06/24/24 09:29 Dose: 5 mg Allergies Allergies Allergy/AdvReac Type Severity Reaction Status Date / Time No Known Allergies Allergy Verified 06/10/24 15:16 Assessment & Plan Assessment & Plan (1) Acute psychosis: Status: Acute Code(s): F23 - Brief psychotic disorder (2) SLE (systemic lupus erythematosus related syndrome): Status: Acute Code(s): M32.9 - Systemic lupus erythematosus, unspecified (3) Autoimmune hepatitis: Status: Acute Code(s): K75.4 - Autoimmune hepatitis (4) [place] thyroiditis: Status: Acute Code(s): E06.3 - Autoimmune thyroiditis (5) Crohn disease: Status: Acute Code(s): K50.90 - Crohn's disease, unspecified, without complications (6) POTS (postural orthostatic tachycardia syndrome): Status: Acute Code(s): G90.A - Postural orthostatic tachycardia syndrome [POTS] (7) Bipolar disorder: Status: Acute Code(s): F31.9 - Bipolar disorder, unspecified Plan 06/11: restart previous med regimen, assuming it is reasonable and if collateral bears out that it was effective. zyprexa and ativan for now. 06/12: met with parents, got meds list from pharmacy. verified father has bipolar disorder. 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 will restart medical regimen as well as psychiatric. kristie/psychosis may be as inherited from father or possibly immune-mediated. will address both potential etiologies simultaneously. 06/13: more subdued and slowed today than yesterday. poor sleep - increase HS zyprexa to 10 mg. 40 min call with family. check lyme titer. consult rheum, GI, hospitalist. continue current mgmt otherwise and observe for improvement. [facility] contacted, reported pt is no longer in their practice and hasn't been seen for more than a year. 06/14: hospitalist recs re POTS appreciated. return metoprolol to outpt dosing of 50 mg daily as pt HR 99. awaiting GI eval. case discussed with rheum, Dr. Carmona, who is not available for full consult but did advise. will order labs as instructed and request neuro consult as well for opinion re LP and brain MRI. pt does continue more subdued and did actually sleep 8-9 hours last night, which is a striking improvement. 06/15: seen by neuro, low index of suspicion for central inflammatory process. rec MRI but no LP for now. ESR/CRP WNL today, other labs pending. increase HS zyprexa to 15 mg. no change in presentation from yesterday. 06/16 we are ordering blood work with lithium level for tomorrow. We are going to keep on Zyprexa 15 and reassess tomorrow. 06/17 lithium level in therapeutic level. BMP within normal limits. The patient is grossly disorganized still psychotic. 06/18: no improvement over w/e. lithium 0.83. add VPA 1000 QHS. increase HS zyprexa to 30 mg, decrease PRNs to 5 mg each. add ativan 2 mg QHS. sleeping less than 4 hours per night. order brain MRI, unclear if pt will be able to tolerate study. 06/19: hold brain MRI due to need to be still for 30 minutes. slept 2 hours overnight but then from 1000 through afternoon. appeared to be pacing more slowly and less voluble today. per rheum review of chart, labs not suggestive of active SLE. 06/20: remains slower than prior, observed in milieu not self-dialoguing for the first time by this ghost writer. slept 7 hours overnight. labs continue to not support active auto-immune illness. remains with paranoia about being murdered and delusions re swapping. continue current mgmt. 06/21: labs continue to not support active auto-immune disease. gradual daily improvements continue. continue current mgmt. 06/22: labs continue to not support active auto-immune disease. gradual daily improvements continue. continue current mgmt. 06/23: continues sleeping more, slower pacing and speech. today questioned delusion that she has a brain tumor. 06/24: lithium and VPA therapeutic. ammonia slightly elevated. pursue MRI and GI consult tomorrow. improved but not well. met with parents for extended period. 06/25: capgras delusions weakened from people HAVE BEEN replaced to people MIGHT GET replaced. continue current mgmt. 06/26: mtg with parents. asking for immediate transfer, concerned auto-immune etiologies not being adequately worked up. expressing desire that no further investigations be conducted at [facility]. has port in place for remicaid infusions, unclear if MRI-safe; will hold on MRI for now. continues to demonstrate gradual improvement, able to attend to conversation with mother and this ghost writer for about 5 minutes. will contact OSH for transfer per family's wishes. Reason for continued inpatient stay Substantial Risk for: inability to function and rapid decompensation Time Spent With Patient Time: Total time managing care of this patient today __45__ minutes.
[2024-06-26 19:10] VITALS: BP 129/87; PULSE 106; RESP 16; TEMP 36.8; O2SAT 97
[2024-06-26] MEDS: Divalproex Sodium ER 500 MG TAB.ER.24H 1000 MG PO (20:42)
[2024-06-26] MEDS: OLANZapine 10 MG TABLET 30 MG PO (20:42)
[2024-06-26] MEDS: LORazepam 1 MG TABLET 2 MG PO (20:42)
[2024-06-26] MEDS: Acetaminophen 325 MG TABLET 650 MG PO (22:21)
[2024-06-27 07:43] VITALS: BP 117/74; PULSE 97; RESP 14; TEMP 37.1; O2SAT 96
[2024-06-27] MEDS: Levothyroxine Sodium 25 MCG TABLET PO (08:40)
[2024-06-27] MEDS: Lithium Carbonate ER 300 MG TABLET.ER 600 MG PO ×2 (08:40→21:33)
[2024-06-27] MEDS: Metoprolol Succinate ER 50 MG TAB.ER.24H PO (08:40)
[2024-06-27] MEDS: Fludrocortisone Acetate 0.1 MG TABLET PO (08:40)
[2024-06-27] MEDS: mycophenolate mofetiL 250 MG CAPSULE 1000 MG PO ×2 (08:41→21:33)
--- NOTE | 2024-06-27 13:03 | P.PNPSI_ITS ---
Subjective Subjective Date of Service: 06/27/24 Reason For Visit: kristie/psychosis Interim History: modest improvement continues. seen with mother. per staff, pacing, visits with mother, mumbling. the world is in disarray. slept 8 hours. Mental Status Exam Mental Status Exam Narrative: dressed in hospital [facility]. disheveled. pacing, more slowly than prior. less self-dialogue, softer than before. able to attend to conversation with MD and mother for 5 minutes. thoughts logical. some paranoia re swapping evident. affect constricted, hypo-intense, non-labile. mood not assessed. no SI/HI/AVH expressed. Diagnostics Vital Signs (24Hr): Vital Signs - 24 hr 06/26/24 19:10 06/27/24 07:43 Temperature 98.2 F 98.8 F Pulse Rate 106 H 97 Respiratory Rate 16 14 Blood Pressure 129/87 117/74 Pulse Oximetry 97 96 Oxygen Delivery Method Room Air Room Air BMI result Body Mass Index 22.3 Labs 06/12/24 08:03 06/23/24 20:30 Imaging Radiology Impressions: ITS Impressions Head CT 06/11/24 11:34 IMPRESSION: 1. Normal CT scan of the brain. 2. No intracranial hemorrhage or skull fracture is seen. 3. No evidence of space occupying lesion could be found. 4. The current plain CT scan of the brain shows no diagnostic evidence of acute cerebral infarction. Cervical Spine CT 06/11/24 17:25 IMPRESSION: No acute intracranial hemorrhage. No acute, displaced cervical spine fracture. Head CT 06/11/24 17:25 IMPRESSION: No acute intracranial hemorrhage. No acute, displaced cervical spine fracture. Abdomen X-Ray 06/25/24 16:15 IMPRESSION: Unremarkable examination. Chest X-Ray 06/25/24 16:15 IMPRESSION: Chest willa catheter projects over the cavoatrial junction, unclear if this is MRI compatible. Medications Medications Current Medications Acetaminophen (Acetaminophen 325 Mg Tablet) 650 mg PO Q6H PRN PRN Reason: Headache/Pain Mild Scale (1-3) Last Admin: 06/26/24 22:21 Dose: 650 mg Al Hydroxide/Mg Hydroxide (Magnesium Hydrox/Alum Hydrox 30 Ml Oral.Susp) 30 ml PO Q6H PRN PRN Reason: Heartburn/Nausea Divalproex Sodium (Divalproex Sodium Er 500 Mg Tab.Er.24h) 1,000 mg PO BEDTIME [facility] Last Admin: 06/26/24 20:42 Dose: 1,000 mg Fludrocortisone Acetate (Fludrocortisone Acetate 0.1 Mg Tablet) 0.1 mg PO DAILY [facility] Last Admin: 06/27/24 08:40 Dose: 0.1 mg Hydroxyzine HCl (Hydroxyzine Hcl 25 Mg Tablet) 25 mg PO Q6H PRN PRN Reason: Anxiety Last Admin: 06/24/24 09:28 Dose: 25 mg Levothyroxine Sodium (Levothyroxine Sodium 25 Mcg Tablet) 25 mcg PO DAILY@0600 [facility] Last Admin: 06/27/24 08:40 Dose: 25 mcg [place] Carbonate (Kalida Carbonate Er 300 Mg Tablet.Er) 600 mg PO BID [facility] Last Admin: 06/27/24 08:40 Dose: 600 mg Lorazepam (Lorazepam 1 Mg Tablet) 1 mg PO Q4H PRN PRN Reason: agitation Last Admin: 06/26/24 11:36 Dose: 1 mg Lorazepam (Lorazepam 1 Mg Tablet) 2 mg PO BEDTIME [facility] Last Admin: 06/26/24 20:42 Dose: 2 mg Magnesium Hydroxide (Milk Of Magnesia 30 Ml Oral.Susp) 30 ml PO DAILY PRN PRN Reason: Constipation Metoprolol Succinate (Metoprolol Succinate Er 50 Mg Tab.Er.24h) 50 mg PO DAILY [facility]; Protocol Last Admin: 06/27/24 08:40 Dose: 50 mg Mycophenolate Mofetil (Mycophenolate Mofetil 250 Mg Capsule) 1,000 mg PO BID [facility] Last Admin: 06/27/24 08:41 Dose: 1,000 mg Nicotine Polacrilex (Nicotine Polacrilex 2 Mg Gum) 4 mg BUCCAL Q2H PRN PRN Reason: Nicotine Cravings Olanzapine (Olanzapine 10 Mg Tablet) 30 mg PO BEDTIME [facility] Last Admin: 06/26/24 20:42 Dose: 30 mg Olanzapine (Olanzapine Odt 10 Mg Tab.Rapdis) 5 mg TRANSLINGU Q4H PRN PRN Reason: agitation Last Admin: 06/24/24 09:29 Dose: 5 mg Allergies Allergies Allergy/AdvReac Type Severity Reaction Status Date / Time No Known Allergies Allergy Verified 06/10/24 15:16 Assessment & Plan Assessment & Plan (1) Acute psychosis: Status: Acute Code(s): F23 - Brief psychotic disorder (2) SLE (systemic lupus erythematosus related syndrome): Status: Acute Code(s): M32.9 - Systemic lupus erythematosus, unspecified (3) Autoimmune hepatitis: Status: Acute Code(s): K75.4 - Autoimmune hepatitis (4) Lawrence thyroiditis: Status: Acute Code(s): E06.3 - Autoimmune thyroiditis (5) Crohn disease: Status: Acute Code(s): K50.90 - Crohn's disease, unspecified, without complications (6) POTS (postural orthostatic tachycardia syndrome): Status: Acute Code(s): G90.A - Postural orthostatic tachycardia syndrome [POTS] (7) Bipolar disorder: Status: Acute Code(s): F31.9 - Bipolar disorder, unspecified Plan 06/11: restart previous med regimen, assuming it is reasonable and if collateral bears out that it was effective. zyprexa and ativan for now. 06/12: met with parents, got meds list from pharmacy. verified father has bipolar disorder. 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 will restart medical regimen as well as psychiatric. kristie/psychosis may be as inherited from father or possibly immune-mediated. will address both potential etiologies simultaneously. 06/13: more subdued and slowed today than yesterday. poor sleep - increase HS zyprexa to 10 mg. 40 min call with family. check lyme titer. consult rheum, GI, hospitalist. continue current mgmt otherwise and observe for improvement. [facility] contacted, reported pt is no longer in their practice and hasn't been seen for more than a year. 06/14: hospitalist recs re POTS appreciated. return metoprolol to outpt dosing of 50 mg daily as pt HR 99. awaiting GI eval. case discussed with rheum, Dr. Carmona, who is not available for full consult but did advise. will order labs as instructed and request neuro consult as well for opinion re LP and brain MRI. pt does continue more subdued and did actually sleep 8-9 hours last night, which is a striking improvement. 06/15: seen by neuro, low index of suspicion for central inflammatory process. rec MRI but no LP for now. ESR/CRP WNL today, other labs pending. increase HS zyprexa to 15 mg. no change in presentation from yesterday. 06/16 we are ordering blood work with lithium level for tomorrow. We are going to keep on Zyprexa 15 and reassess tomorrow. 06/17 lithium level in therapeutic level. BMP within normal limits. The patient is grossly disorganized still psychotic. 06/18: no improvement over w/e. lithium 0.83. add VPA 1000 QHS. increase HS zyprexa to 30 mg, decrease PRNs to 5 mg each. add ativan 2 mg QHS. sleeping less than 4 hours per night. order brain MRI, unclear if pt will be able to tolerate study. 06/19: hold brain MRI due to need to be still for 30 minutes. slept 2 hours overnight but then from 1000 through afternoon. appeared to be pacing more slowly and less voluble today. per rheum review of chart, labs not suggestive of active SLE. 06/20: remains slower than prior, observed in milieu not self-dialoguing for the first time by this marketing copywriter. slept 7 hours overnight. labs continue to not support active auto-immune illness. remains with paranoia about being murdered and delusions re swapping. continue current mgmt. 06/21: labs continue to not support active auto-immune disease. gradual daily improvements continue. continue current mgmt. 06/22: labs continue to not support active auto-immune disease. gradual daily improvements continue. continue current mgmt. 06/23: continues sleeping more, slower pacing and speech. today questioned delusion that she has a brain tumor. 06/24: lithium and VPA therapeutic. ammonia slightly elevated. pursue MRI and GI consult tomorrow. improved but not well. met with parents for extended period. 06/25: capgras delusions weakened from people HAVE BEEN replaced to people MIGHT GET replaced. continue current mgmt. 06/26: mtg with parents. asking for immediate transfer, concerned auto-immune etiologies not being adequately worked up. expressing desire that no further investigations [place] [facility] [place] has port in place for remicaid infusions, unclear if MRI-safe; will hold on MRI for now. continues to demonstrate gradual improvement, able to attend to conversation with mother and this marketing copywriter for about 5 minutes. will contact OSH for transfer per family's wishes. 06/27: [place] [facility] case D/W joseph, plan for MRI and LP will proceed. mother has reversed her objection to further w/u here. presentation as per yesterday. continue current mgmt otherwise. Reason for continued inpatient stay Substantial Risk for: inability to function and rapid decompensation Time Spent With Patient Time: Total time managing care of this patient today __75__ minutes.
[2024-06-27 19:36] VITALS: BP 124/89; PULSE 118; RESP 18; TEMP 37.1; O2SAT 97
[2024-06-27] MEDS: OLANZapine 10 MG TABLET 30 MG PO (21:33)
[2024-06-27] MEDS: Divalproex Sodium ER 500 MG TAB.ER.24H 1000 MG PO (21:33)
[2024-06-27] MEDS: LORazepam 1 MG TABLET 2 MG PO (21:34)
[2024-06-27] MEDS: Acetaminophen 325 MG TABLET 650 MG PO (21:43)
[2024-06-28] MEDS: hydrOXYzine HCL 25 MG TABLET PO (00:06)
[2024-06-28] MEDS: LORazepam 1 MG TABLET PO (00:06)
[2024-06-28 07:00] VITALS: BMI 21.9
[2024-06-28 08:57] VITALS: BP 125/79; PULSE 95; RESP 16; TEMP 37.1; O2SAT 97
[2024-06-28] MEDS: Levothyroxine Sodium 25 MCG TABLET PO (08:59)
[2024-06-28] MEDS: Lithium Carbonate ER 300 MG TABLET.ER 600 MG PO ×2 (08:59→21:31)
[2024-06-28] MEDS: Metoprolol Succinate ER 50 MG TAB.ER.24H PO (08:59)
[2024-06-28] MEDS: Fludrocortisone Acetate 0.1 MG TABLET PO (08:59)
[2024-06-28] MEDS: mycophenolate mofetiL 250 MG CAPSULE 1000 MG PO ×2 (08:59→21:32)
[2024-06-28] MEDS: LORazepam 1 MG TABLET 4 MG PO (10:02)
[2024-06-28] MEDS: Acetaminophen 325 MG TABLET 975 MG PO (10:49)
[2024-06-28] MEDS: LORazepam 2 MG/ML VIAL 1 MG IM (12:00)
[2024-06-28 14:01] VITALS: BP 123/82; PULSE 106; RESP 16; TEMP 36.9; O2SAT 97
--- NOTE | 2024-06-28 14:40 | HO.PSYCHPN ---
Subjective Subjective Date of Service: 06/28/24 Reason For Visit: kristie/psychosis Interim History: pacing early, then calm and sleepy after getting 4 mg ativan PO 2 hours prior to and then another 1 mg IM 10 minutes prior to MRI. returned from MRI and reported it went well, no complaints. napping after. per staff, anxious, pacing, leaning to one side. slept about 7 hours. saying she needs to get her spine fixed. self-dialoguing. difficult to get to take her medications last night. Mental Status Exam Mental Status Exam Narrative: dressed in [facility]. disheveled. pacing, more slowly than prior. less self-dialogue, softer than before. able to attend to conversation with MD for longer periods. thoughts linear and logical, no paranoia or delusions expressed. affect constricted, hypo-intense, non-labile. mood not assessed. no SI/HI/AVH expressed. Diagnostics Vital Signs (24Hr): Vital Signs - 24 hr 06/27/24 19:36 06/28/24 08:57 06/28/24 14:01 Temperature 98.8 F 98.8 F 98.5 F Pulse Rate 118 H 95 106 H Respiratory Rate 18 16 16 Blood Pressure 124/89 125/79 123/82 Pulse Oximetry 97 97 97 Oxygen Delivery Method Room Air Room Air Room Air BMI result Body Mass Index 21.9 Labs 06/12/24 08:03 06/23/24 20:30 Imaging Radiology Impressions: ITS Impressions Head CT 06/11/24 11:34 IMPRESSION: 1. Normal CT scan of the brain. 2. No intracranial hemorrhage or skull fracture is seen. 3. No evidence of space occupying lesion could be found. 4. The current plain CT scan of the brain shows no diagnostic evidence of acute cerebral infarction. Cervical Spine CT 06/11/24 17:25 IMPRESSION: No acute intracranial hemorrhage. No acute, displaced cervical spine fracture. Head CT 06/11/24 17:25 IMPRESSION: No acute intracranial hemorrhage. No acute, displaced cervical spine fracture. Abdomen X-Ray 06/25/24 16:15 IMPRESSION: Unremarkable examination. Chest X-Ray 06/25/24 16:15 IMPRESSION: Chest willa catheter projects over the cavoatrial junction, unclear if this is MRI compatible. Medications Medications Current Medications Acetaminophen (Acetaminophen 325 Mg Tablet) 650 mg PO Q6H PRN PRN Reason: Headache/Pain Mild Scale (1-3) Last Admin: 06/27/24 21:43 Dose: 650 mg Al Hydroxide/Mg Hydroxide (Magnesium Hydrox/Alum Hydrox 30 Ml Oral.Susp) 30 ml PO Q6H PRN PRN Reason: Heartburn/Nausea Divalproex Sodium (Divalproex Sodium Er 500 Mg Tab.Er.24h) 1,000 mg PO BEDTIME [facility] Last Admin: 06/27/24 21:33 Dose: 1,000 mg Fludrocortisone Acetate (Fludrocortisone Acetate 0.1 Mg Tablet) 0.1 mg PO DAILY [facility] Last Admin: 06/28/24 08:59 Dose: 0.1 mg Hydroxyzine HCl (Hydroxyzine Hcl 25 Mg Tablet) 25 mg PO Q6H PRN PRN Reason: Anxiety Last Admin: 06/28/24 00:06 Dose: 25 mg Levothyroxine Sodium (Levothyroxine Sodium 25 Mcg Tablet) 25 mcg PO DAILY@0600 [facility] Last Admin: 06/28/24 08:59 Dose: 25 mcg [place] Carbonate ([place] Carbonate Er 300 Mg Tablet.Er) 600 mg PO BID [facility] Last Admin: 06/28/24 08:59 Dose: 600 mg Lorazepam (Lorazepam 1 Mg Tablet) 1 mg PO Q4H PRN PRN Reason: agitation Last Admin: 06/28/24 00:06 Dose: 1 mg Lorazepam (Lorazepam 1 Mg Tablet) 2 mg PO BEDTIME [facility] Last Admin: 06/27/24 21:34 Dose: 2 mg Lorazepam (Lorazepam 1 Mg Tablet) 2 mg PO DAILY PRN PRN Reason: 45 minutes prior to studies/procedures Lorazepam (Lorazepam 1 Mg Tablet) 4 mg PO DAILY PRN PRN Reason: 2 hours prior to studies/procedures Last Admin: 06/28/24 10:02 Dose: 4 mg Magnesium Hydroxide (Milk Of Magnesia 30 Ml Oral.Susp) 30 ml PO DAILY PRN PRN Reason: Constipation Metoprolol Succinate (Metoprolol Succinate Er 50 Mg Tab.Er.24h) 50 mg PO DAILY [facility]; Protocol Last Admin: 06/28/24 08:59 Dose: 50 mg Mycophenolate Mofetil (Mycophenolate Mofetil 250 Mg Capsule) 1,000 mg PO BID [facility] Last Admin: 06/28/24 08:59 Dose: 1,000 mg Nicotine Polacrilex (Nicotine Polacrilex 2 Mg Gum) 4 mg BUCCAL Q2H PRN PRN Reason: Nicotine Cravings Olanzapine (Olanzapine 10 Mg Tablet) 30 mg PO BEDTIME [facility] Last Admin: 06/27/24 21:33 Dose: 30 mg Olanzapine (Olanzapine Odt 10 Mg Tab.Rapdis) 5 mg TRANSLINGU Q4H PRN PRN Reason: agitation Last Admin: 06/24/24 09:29 Dose: 5 mg Allergies Allergies Allergy/AdvReac Type Severity Reaction Status Date / Time No Known Allergies Allergy Verified 06/10/24 15:16 Assessment & Plan Assessment & Plan (1) Acute psychosis: Status: Acute Code(s): F23 - Brief psychotic disorder (2) SLE (systemic lupus erythematosus related syndrome): Status: Acute Code(s): M32.9 - Systemic lupus erythematosus, unspecified (3) Autoimmune hepatitis: Status: Acute Code(s): K75.4 - Autoimmune hepatitis (4) Lawrence thyroiditis: Status: Acute Code(s): E06.3 - Autoimmune thyroiditis (5) Crohn disease: Status: Acute Code(s): K50.90 - Crohn's disease, unspecified, without complications (6) POTS (postural orthostatic tachycardia syndrome): Status: Acute Code(s): G90.A - Postural orthostatic tachycardia syndrome [POTS] (7) Bipolar disorder: Status: Acute Code(s): F31.9 - Bipolar disorder, unspecified Plan 06/11: restart previous med regimen, assuming it is reasonable and if collateral bears out that it was effective. zyprexa and ativan for now. 06/12: met with parents, got meds list from pharmacy. verified father has bipolar disorder. 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 will restart medical regimen as well as psychiatric. kristie/psychosis may be as inherited from father or possibly immune-mediated. will address both potential etiologies simultaneously. 06/13: more subdued and slowed today than yesterday. poor sleep - increase HS zyprexa to 10 mg. 40 min call with family. check lyme titer. consult rheum, GI, hospitalist. continue current mgmt otherwise and observe for improvement. [facility] contacted, reported pt is no longer in their practice and hasn't been seen for more than a year. 06/14: hospitalist j luis re POTS appreciated. return metoprolol to outpt dosing of 50 mg daily as pt HR 99. awaiting GI eval. case discussed with rheum, Dr. Carmona, who is not available for full consult but did advise. will order labs as instructed and request neuro consult as well for opinion re LP and brain MRI. pt does continue more subdued and did actually sleep 8-9 hours last night, which is a striking improvement. 06/15: seen by neuro, low index of suspicion for central inflammatory process. rec MRI but no LP for now. ESR/CRP WNL today, other labs pending. increase HS zyprexa to 15 mg. no change in presentation from yesterday. 06/16 we are ordering blood work with lithium level for tomorrow. We are going to keep on Zyprexa 15 and reassess tomorrow. 06/17 lithium level in therapeutic level. BMP within normal limits. The patient is grossly disorganized still psychotic. 06/18: no improvement over w/e. lithium 0.83. add VPA 1000 QHS. increase HS zyprexa to 30 mg, decrease PRNs to 5 mg each. add ativan 2 mg QHS. sleeping less than 4 hours per night. order brain MRI, unclear if pt will be able to tolerate study. 06/19: hold brain MRI due to need to be still for 30 minutes. slept 2 hours overnight but then from 1000 through afternoon. appeared to be pacing more slowly and less voluble today. per rheum review of chart, labs not suggestive of active SLE. 06/20: remains slower than prior, observed in milieu not self-dialoguing for the first time by this writer producer. slept 7 hours overnight. labs continue to not support active auto-immune illness. remains with paranoia about being murdered and delusions re swapping. continue current mgmt. 06/21: labs continue to not support active auto-immune disease. gradual daily improvements continue. continue current mgmt. 06/22: labs continue to not support active auto-immune disease. gradual daily improvements continue. continue current mgmt. 06/23: continues sleeping more, slower pacing and speech. today questioned delusion that she has a brain tumor. 06/24: lithium and VPA therapeutic. ammonia slightly elevated. pursue MRI and GI consult tomorrow. improved but not well. met with parents for extended period. 06/25: capgras delusions weakened from people HAVE BEEN replaced to people MIGHT GET replaced. continue current mgmt. 06/26: mtg with parents. asking for immediate transfer, concerned auto-immune etiologies not being adequately worked up. expressing desire that no further investigations be conducted at [facility] [place]. has port in place for remicaid infusions, unclear if MRI-safe; will hold on MRI for now. continues to demonstrate gradual improvement, able to attend to conversation with mother and this writer producer for about 5 minutes. will contact OSH for transfer per family's wishes. 06/27: referral [place] [facility] [place]. case D/W joseph, plan for MRI and LP will proceed. mother has reversed her objection to further w/u here. presentation as per yesterday. continue current mgmt otherwise. 06/28: MRI completed today after 5 mg total ativan, 4 mg PO and 1 mg IM. information exchange with pt's mother. continue current mgmt. Reason for continued inpatient stay Substantial Risk for: inability to function and rapid decompensation Time Spent With Patient Time: Total time managing care of this patient today __35__ minutes.
--- NOTE | 2024-06-28 18:58 | PC.NURSE ---
Patient has been listing/leaning to the right side while ambulates. Dr. Dorantes aware of issue during day. The patient's mother came to visit in late afternoon and saw the patient's current presentation. Later called and asked for follow up tonight. MRI results remain pending from today. On-call provider made aware of situation and family request. Hospitalist consult placed. Patient remains able to ambulate independently at this time. No dizziness or headache reported.
--- NOTE | 2024-06-28 20:00 | P.EN_ITS ---
Event Note Date of Service: 06/28/24 Event Note: Patient is a 19-year-old female with a PMH significant for POTS and mood disorder who was admitted to [facility] psychiatry unit for decompensated psychiatric illness. Patient was initially manic at time of presentation to the unit, which has improved since admission. Since yesterday patient has been noted to be tilting her head to the right while walking. Hospitalist consult for medical evaluation. The patient is calm and cooperative during interview and exam. Re ports back pain though states it is ?not bad?. Worse with movement or walking. Reports back pain is ?all over? but points to left lower back when asked to localize it. No pain in neck or shoulders. Denies any lightheadedness or dizziness. No known trauma or recent fall. Denies headache or acute vision changes. No numbness or tingling to extremities. No upper extremity weakness, though is uncertain of whether her legs are weaker than normal or not. Upon physical examination no focal deficits are noted. Strength of upper and lower extremities preserved and symmetrical. Preserved ROM of shoulders, neck, back. Back, neck, and shoulders nontender to palpation. When patient is asked why she is tilting her head and torso to the right when she walks she responds, because my family is missing and this is a game I play to help myself more in control . She denies this posture alleviates any pain. Abnormal postural ambulation likely psychogenic in nature. However, MRI of head/brain has already been ordered and taken. No additional imaging or workup of back or spine seems warranted at this time. Would suggest treating any back pain conservatively with acetaminophen and/or Motrin. Follow results of MRI. Will sign for now. Please re-consult if any acute issue or need arises. Time Spent With Patient Time: Total time managing care of this patient today ____ minutes.
[2024-06-28 20:03] VITALS: BP 123/80; PULSE 115; RESP 16; TEMP 36.9; O2SAT 95
[2024-06-28] MEDS: LORazepam 1 MG TABLET 2 MG PO (21:31)
[2024-06-28] MEDS: Divalproex Sodium ER 500 MG TAB.ER.24H 1000 MG PO (21:31)
[2024-06-28] MEDS: OLANZapine 10 MG TABLET 30 MG PO (21:32)
[2024-06-28] MEDS: Acetaminophen 325 MG TABLET 650 MG PO (21:34)
[2024-06-29] MEDS: Levothyroxine Sodium 25 MCG TABLET PO (06:37)
[2024-06-29 07:15] VITALS: BP 113/78; PULSE 79; RESP 16; TEMP 36.9; O2SAT 98
[2024-06-29 08:50] VITALS: BP 115/78; PULSE 79
[2024-06-29 08:55] VITALS: BP 115/78; PULSE 79
[2024-06-29] MEDS: Lithium Carbonate ER 300 MG TABLET.ER 600 MG PO ×2 (08:55→20:56)
[2024-06-29] MEDS: Metoprolol Succinate ER 50 MG TAB.ER.24H PO (08:55)
[2024-06-29] MEDS: Fludrocortisone Acetate 0.1 MG TABLET PO (08:56)
[2024-06-29] MEDS: mycophenolate mofetiL 250 MG CAPSULE 1000 MG PO ×2 (08:56→20:56)
[2024-06-29] MEDS: Acetaminophen 325 MG TABLET 975 MG PO (11:41)
--- NOTE | 2024-06-29 15:18 | P.PNPSI_ITS ---
Subjective Subjective Date of Service: 06/29/24 Reason For Visit: kristie/psychosis Interim History: pt seen alone and with mother, mother seen alone as well. pt calm, pacing. no self-dialoguing. says, there's something wrong with the world. able to laugh when MD suggests this is quite normal. also states she has a brain tumor (for which there is no evidence). c/o lower back pain and leaning right decreases pain. denies sensation of muscle tightness or spasm. agrees to tylenol for pain. case discussed in detail with pt's mother. per staff, leaning to the right. pacing, mumbling. slept 8 hours. Mental Status Exam Mental Status Exam Narrative: dressed in hospital angel[facility]. disheveled. pacing, more slowly than prior. no self-dialogue noted today. able to attend to conversation with MD for longer periods. thoughts linear and logical, delusional re brain tumor. affect constricted, hypo-intense, non-labile. mood not assessed. no SI/HI/AVH expressed. Diagnostics Vital Signs (24Hr): Vital Signs - 24 hr 06/28/24 20:03 06/29/24 07:15 06/29/24 08:50 Temperature 98.5 F 98.4 F Pulse Rate 115 H 79 79 Respiratory Rate 16 16 Blood Pressure 123/80 113/78 115/78 Pulse Oximetry 95 98 Oxygen Delivery Method Room Air Room Air 06/29/24 08:55 Temperature Pulse Rate 79 Respiratory Rate Blood Pressure 115/78 Pulse Oximetry Oxygen Delivery Method BMI result Body Mass Index 21.9 Labs 06/12/24 08:03 06/23/24 20:30 Imaging Radiology Impressions: ITS Impressions Head CT 06/11/24 11:34 IMPRESSION: 1. Normal CT scan of the brain. 2. No intracranial hemorrhage or skull fracture is seen. 3. No evidence of space occupying lesion could be found. 4. The current plain CT scan of the brain shows no diagnostic evidence of acute cerebral infarction. Cervical Spine CT 06/11/24 17:25 IMPRESSION: No acute intracranial hemorrhage. No acute, displaced cervical spine fracture. Head CT 06/11/24 17:25 IMPRESSION: No acute intracranial hemorrhage. No acute, displaced cervical spine fracture. Abdomen X-Ray 06/25/24 16:15 IMPRESSION: Unremarkable examination. Chest X-Ray 06/25/24 16:15 IMPRESSION: Chest willa catheter projects over the cavoatrial junction, unclear if this is MRI compatible. Brain MRI 06/28/24 12:05 IMPRESSION: 1. No evidence of intracranial hemorrhage, acute infarction, mass effect, edema, or extra-axial fluid collection. 2. No white matter abnormalities. 3. 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 There is no surrounding edema. Electronically signed by: Geovanny Cota MD 06/29/2024 03:04 PM EDT Medications Medications Current Medications Acetaminophen (Acetaminophen 325 Mg Tablet) 650 mg PO Q6H PRN PRN Reason: Headache/Pain Mild Scale (1-3) Last Admin: 06/28/24 21:34 Dose: 650 mg Al Hydroxide/Mg Hydroxide (Magnesium Hydrox/Alum Hydrox 30 Ml Oral.Susp) 30 ml PO Q6H PRN PRN Reason: Heartburn/Nausea Divalproex Sodium (Divalproex Sodium Er 500 Mg Tab.Er.24h) 1,000 mg PO BEDTIME [facility] Last Admin: 06/28/24 21:31 Dose: 1,000 mg Fludrocortisone Acetate (Fludrocortisone Acetate 0.1 Mg Tablet) 0.1 mg PO DAILY [facility] Last Admin: 06/29/24 08:56 Dose: 0.1 mg Hydroxyzine HCl (Hydroxyzine Hcl 25 Mg Tablet) 25 mg PO Q6H PRN PRN Reason: Anxiety Last Admin: 06/28/24 00:06 Dose: 25 mg Levothyroxine Sodium (Levothyroxine Sodium 25 Mcg Tablet) 25 mcg PO DAILY@0600 [facility] Last Admin: 06/29/24 06:37 Dose: 25 mcg [place] Carbonate ([place] Carbonate Er 300 Mg Tablet.Er) 600 mg PO BID [facility] Last Admin: 06/29/24 08:55 Dose: 600 mg Lorazepam (Lorazepam 1 Mg Tablet) 1 mg PO Q4H PRN PRN Reason: agitation Last Admin: 06/28/24 00:06 Dose: 1 mg Lorazepam (Lorazepam 1 Mg Tablet) 2 mg PO BEDTIME [facility] Last Admin: 06/28/24 21:31 Dose: 2 mg Lorazepam (Lorazepam 1 Mg Tablet) 2 mg PO DAILY PRN PRN Reason: 45 minutes prior to studies/procedures Lorazepam (Lorazepam 1 Mg Tablet) 4 mg PO DAILY PRN PRN Reason: 2 hours prior to studies/procedures Last Admin: 06/28/24 10:02 Dose: 4 mg Magnesium Hydroxide (Milk Of Magnesia 30 Ml Oral.Susp) 30 ml PO DAILY PRN PRN Reason: Constipation Metoprolol Succinate (Metoprolol Succinate Er 50 Mg Tab.Er.24h) 50 mg PO DAILY [facility]; Protocol Last Admin: 06/29/24 08:55 Dose: 50 mg Mycophenolate Mofetil (Mycophenolate Mofetil 250 Mg Capsule) 1,000 mg PO BID [facility] Last Admin: 06/29/24 08:56 Dose: 1,000 mg Nicotine Polacrilex (Nicotine Polacrilex 2 Mg Gum) 4 mg BUCCAL Q2H PRN PRN Reason: Nicotine Cravings Olanzapine (Olanzapine 10 Mg Tablet) 30 mg PO BEDTIME [facility] Last Admin: 06/28/24 21:32 Dose: 30 mg Olanzapine (Olanzapine Odt 10 Mg Tab.Rapdis) 5 mg TRANSLINGU Q4H PRN PRN Reason: agitation Last Admin: 06/24/24 09:29 Dose: 5 mg Allergies Allergies Allergy/AdvReac Type Severity Reaction Status Date / Time No Known Allergies Allergy Verified 06/10/24 15:16 Assessment & Plan Assessment & Plan (1) Acute psychosis: Status: Acute Code(s): F23 - Brief psychotic disorder (2) SLE (systemic lupus erythematosus related syndrome): Status: Acute Code(s): M32.9 - Systemic lupus erythematosus, unspecified (3) Autoimmune hepatitis: Status: Acute Code(s): K75.4 - Autoimmune hepatitis (4) Lawrence thyroiditis: Status: Acute Code(s): E06.3 - Autoimmune thyroiditis (5) Crohn disease: Status: Acute Code(s): K50.90 - Crohn's disease, unspecified, without complications (6) POTS (postural orthostatic tachycardia syndrome): Status: Acute Code(s): G90.A - Postural orthostatic tachycardia syndrome [POTS] (7) Bipolar disorder: Status: Acute Code(s): F31.9 - Bipolar disorder, unspecified Plan 06/11: restart previous med regimen, assuming it is reasonable and if collateral bears out that it was effective. zyprexa and ativan for now. 06/12: met with parents, got meds list from pharmacy. verified father has bipolar disorder. 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 will restart medical regimen as well as psychiatric. kristie/psychosis may be as inherited from father or possibly immune-mediated. will address both potential etiologies simultaneously. 06/13: more subdued and slowed today than yesterday. poor sleep - increase HS zyprexa to 10 mg. 40 min call with family. check lyme titer. consult rheum, GI, hospitalist. continue current mgmt otherwise and observe for improvement. [facility] contacted, reported pt is no longer in their practice and hasn't been seen for more than a year. 06/14: hospitalist recs re POTS appreciated. return metoprolol to outpt dosing of 50 mg daily as pt HR 99. awaiting GI eval. case discussed with rheum, Dr. Carmona, who is not available for full consult but did advise. will order labs as instructed and request neuro consult as well for opinion re LP and brain MRI. pt does continue more subdued and did actually sleep 8-9 hours last night, which is a striking improvement. 06/15: seen by neuro, low index of suspicion for central inflammatory process. rec MRI but no LP for now. ESR/CRP WNL today, other labs pending. increase HS zyprexa to 15 mg. no change in presentation from yesterday. 06/16 we are ordering blood work with lithium level for tomorrow. We are going to keep on Zyprexa 15 and reassess tomorrow. 06/17 lithium level in therapeutic level. BMP within normal limits. The patient is grossly disorganized still psychotic. 06/18: no improvement over w/e. lithium 0.83. add VPA 1000 QHS. increase HS zyprexa to 30 mg, decrease PRNs to 5 mg each. add ativan 2 mg QHS. sleeping less than 4 hours per night. order brain MRI, unclear if pt will be able to tolerate study. 06/19: hold brain MRI due to need to be still for 30 minutes. slept 2 hours overnight but then from 1000 through afternoon. appeared to be pacing more slowly and less voluble today. per rheum review of chart, labs not suggestive of active SLE. 06/20: remains slower than prior, observed in milieu not self-dialoguing for the first time by this telegraphic typewriter repairer. slept 7 hours overnight. labs continue to not support active auto-immune illness. remains with paranoia about being murdered and delusions re swapping. continue current mgmt. 06/21: labs continue to not support active auto-immune disease. gradual daily improvements continue. continue current mgmt. 06/22: labs continue to not support active auto-immune disease. gradual daily improvements continue. continue current mgmt. 06/23: continues sleeping more, slower pacing and speech. today questioned delusion that she has a brain tumor. 06/24: lithium and VPA therapeutic. ammonia slightly elevated. pursue MRI and GI consult tomorrow. improved but not well. met with parents for extended period. 06/25: capgras delusions weakened from people HAVE BEEN replaced to people MIGHT GET replaced. continue current mgmt. 06/26: mtg with parents. asking for immediate transfer, concerned auto-immune etiologies not being adequately worked up. expressing desire that no further investigations be conducted at [facility]. has port in place for remicaid infusions, unclear if MRI-safe; will hold on MRI for now. continues to demonstrate gradual improvement, able to attend to conversation with mother and this telegraphic typewriter repairer for about 5 minutes. will contact OSH for transfer per family's wishes. 06/27: referral to [facility] begun. case D/W joseph, plan for MRI and LP will proceed. mother has reversed her objection to further w/u here. presentation as per yesterday. continue current mgmt otherwise. 06/28: MRI completed today after 5 mg total ativan, 4 mg PO and 1 mg IM. information exchange with pt's mother. continue current mgmt. 06/29: MRI showing only cavernoma in left posterior putamen (this is a previously observed finding per pt's mother). continues to present improved. referral information submitted to [facility]. consult with neuro here re LP. tylenol for back pain, does not appear to be a dystonic rxn. continue current mgmt otherwise. Reason for continued inpatient stay Substantial Risk for: inability to function and rapid decompensation Time Spent With Patient Time: Total time managing care of this patient today __65__ minutes.
[2024-06-29 20:00] VITALS: BP 141/91; PULSE 103; RESP 18; TEMP 36.8; O2SAT 98
[2024-06-29] MEDS: Divalproex Sodium ER 500 MG TAB.ER.24H 1000 MG PO (20:55)
[2024-06-29] MEDS: OLANZapine 10 MG TABLET 30 MG PO (20:56)
[2024-06-29] MEDS: LORazepam 1 MG TABLET 2 MG PO (20:57)
[2024-06-29] MEDS: hydrOXYzine HCL 25 MG TABLET PO (22:04)
[2024-06-29] MEDS: Acetaminophen 325 MG TABLET 650 MG PO (22:04)
[2024-06-30] MEDS: Levothyroxine Sodium 25 MCG TABLET PO (06:34)
[2024-06-30 07:35] VITALS: BP 111/68; PULSE 81; RESP 14; TEMP 37.4; O2SAT 98
--- NOTE | 2024-06-30 08:26 | P.PNPSI_ITS ---
Subjective Subjective Date of Service: 06/30/24 Reason For Visit: kristie/psychosis Subjective Notes: Conditional Voluntary Healthcare Proxy: No Guardianship: No Medical Problems Affecting Mental Status: Yes (possibly but none directly) Interim History: 28 yo in room, mumbles when answering questions- Says slept- wants to know if MRI showed tumor but - told her no tumor- She found that surprising as she feels changes came suddenly- However talking with her reports went to [employer], studied mental health but then couldn't complete grad school- ? kind of vague and rambling- Medication Compliance: Yes Side effects from medications: No Attending Groups: Intermittent Review of Systems Acute medical concerns: No Medical Review of Systems: unchanged Mental Status Exam Mental Status Exam Patient Appearance: Fatigued and Disheveled Patient Orientation: Person, Place and Situation Level of Consciousness: Awake and Restless Patient Behavior: Restless, Distractible, Confused and Poor Eye Contact Mood Description: Apprehensive Affect Description: Blunted Patient Cognition Impaired: No Ability to Follow Directions: Fair Speech Pattern: Mumbled Delusions: Present (believes people we are talking to are not her parents) Perceptual Disturbances: Depersonalization (?) Thought Process: Illogical, Distracted and Confusion Thought Content: positive for Disorganized Depressive Symptoms: Diff. Making Decisions Abnormal Motor Activity Signs and Symptoms: Restlessness Judgement: Poor Diagnostics Vital Signs (24Hr): Vital Signs - 24 hr 06/29/24 08:50 06/29/24 08:55 06/29/24 20:00 Temperature 98.2 F Pulse Rate 79 79 103 H Respiratory Rate 18 Blood Pressure 115/78 115/78 141/91 H Pulse Oximetry 98 Oxygen Delivery Method Room Air 06/30/24 07:35 Temperature 99.4 F Pulse Rate 81 Respiratory Rate 14 Blood Pressure 111/68 Pulse Oximetry 98 Oxygen Delivery Method Room Air BMI result Body Mass Index 21.9 Labs 06/12/24 08:03 06/23/24 20:30 Imaging Radiology Impressions: ITS Impressions Head CT 06/11/24 11:34 IMPRESSION: 1. Normal CT scan of the brain. 2. No intracranial hemorrhage or skull fracture is seen. 3. No evidence of space occupying lesion could be found. 4. The current plain CT scan of the brain shows no diagnostic evidence of acute cerebral infarction. Cervical Spine CT 06/11/24 17:25 IMPRESSION: No acute intracranial hemorrhage. No acute, displaced cervical spine fracture. Head CT 06/11/24 17:25 IMPRESSION: No acute intracranial hemorrhage. No acute, displaced cervical spine fracture. Abdomen X-Ray 06/25/24 16:15 IMPRESSION: Unremarkable examination. Chest X-Ray 06/25/24 16:15 IMPRESSION: Chest willa catheter projects over the cavoatrial junction, unclear if this is MRI compatible. Brain MRI 06/28/24 12:05 IMPRESSION: 1. No evidence of intracranial hemorrhage, acute infarction, mass effect, edema, or extra-axial fluid collection. 2. No white matter abnormalities. 3. 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 There is no surrounding edema. Electronically signed by: Geovanny Cota MD 06/29/2024 03:04 PM EDT Medications Medications Current Medications Acetaminophen (Acetaminophen 325 Mg Tablet) 650 mg PO Q6H PRN PRN Reason: Headache/Pain Mild Scale (1-3) Last Admin: 06/29/24 22:04 Dose: 650 mg Al Hydroxide/Mg Hydroxide (Magnesium Hydrox/Alum Hydrox 30 Ml Oral.Susp) 30 ml PO Q6H PRN PRN Reason: Heartburn/Nausea Divalproex Sodium (Divalproex Sodium Er 500 Mg Tab.Er.24h) 1,000 mg PO BEDTIME [facility] Last Admin: 06/29/24 20:55 Dose: 1,000 mg Fludrocortisone Acetate (Fludrocortisone Acetate 0.1 Mg Tablet) 0.1 mg PO DAILY [facility] Last Admin: 06/29/24 08:56 Dose: 0.1 mg Hydroxyzine HCl (Hydroxyzine Hcl 25 Mg Tablet) 25 mg PO Q6H PRN PRN Reason: Anxiety Last Admin: 06/29/24 22:04 Dose: 25 mg Levothyroxine Sodium (Levothyroxine Sodium 25 Mcg Tablet) 25 mcg PO DAILY@0600 [facility] Last Admin: 06/30/24 06:34 Dose: 25 mcg [place] Carbonate ([place] Carbonate Er 300 Mg Tablet.Er) 600 mg PO BID [facility] Last Admin: 06/29/24 20:56 Dose: 600 mg Lorazepam (Lorazepam 1 Mg Tablet) 1 mg PO Q4H PRN PRN Reason: agitation Last Admin: 06/28/24 00:06 Dose: 1 mg Lorazepam (Lorazepam 1 Mg Tablet) 2 mg PO BEDTIME [facility] Last Admin: 06/29/24 20:57 Dose: 2 mg Lorazepam (Lorazepam 1 Mg Tablet) 2 mg PO DAILY PRN PRN Reason: 45 minutes prior to studies/procedures Lorazepam (Lorazepam 1 Mg Tablet) 4 mg PO DAILY PRN PRN Reason: 2 hours prior to studies/procedures Last Admin: 06/28/24 10:02 Dose: 4 mg Magnesium Hydroxide (Milk Of Magnesia 30 Ml Oral.Susp) 30 ml PO DAILY PRN PRN Reason: Constipation Metoprolol Succinate (Metoprolol Succinate Er 50 Mg Tab.Er.24h) 50 mg PO DAILY [facility]; Protocol Last Admin: 06/29/24 08:55 Dose: 50 mg Mycophenolate Mofetil (Mycophenolate Mofetil 250 Mg Capsule) 1,000 mg PO BID [facility] Last Admin: 06/29/24 20:56 Dose: 1,000 mg Nicotine Polacrilex (Nicotine Polacrilex 2 Mg Gum) 4 mg BUCCAL Q2H PRN PRN Reason: Nicotine Cravings Olanzapine (Olanzapine 10 Mg Tablet) 30 mg PO BEDTIME [facility] Last Admin: 06/29/24 20:56 Dose: 30 mg Olanzapine (Olanzapine Odt 10 Mg Tab.Rapdis) 5 mg TRANSLINGU Q4H PRN PRN Reason: agitation Last Admin: 06/24/24 09:29 Dose: 5 mg Allergies Allergies Allergy/AdvReac Type Severity Reaction Status Date / Time No Known Allergies Allergy Verified 06/10/24 15:16 Assessment & Plan Assessment & Plan (1) Acute psychosis: Status: Acute Code(s): F23 - Brief psychotic disorder Assessment and Plan: 06/30- got hx of possible pro-dromal sys than acute onset- with decline in capacity for higher level of schooling- (2) SLE (systemic lupus erythematosus related syndrome): Status: Acute Code(s): M32.9 - Systemic lupus erythematosus, unspecified (3) Autoimmune hepatitis: Status: Acute Code(s): K75.4 - Autoimmune hepatitis (4) Lawrence thyroiditis: Status: Acute Code(s): E06.3 - Autoimmune thyroiditis (5) Crohn disease: Status: Acute Code(s): K50.90 - Crohn's disease, unspecified, without complications (6) POTS (postural orthostatic tachycardia syndrome): Status: Acute Code(s): G90.A - Postural orthostatic tachycardia syndrome [POTS] (7) Bipolar disorder: Status: Acute Code(s): F31.9 - Bipolar disorder, unspecified Plan 06/11: restart previous med regimen, assuming it is reasonable and if collateral bears out that it was effective. zyprexa and ativan for now. 06/12: met with parents, got meds list from pharmacy. verified father has bipolar disorder. 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 will restart medical regimen as well as psychiatric. kristie/psychosis may be as inherited from father or possibly immune-mediated. will address both potential etiologies simultaneously. 06/13: more subdued and slowed today than yesterday. poor sleep - increase HS zyprexa to 10 mg. 40 min call with family. check lyme titer. consult rheum, GI, hospitalist. continue current mgmt otherwise and observe for improvement. [facility] contacted, reported pt is no longer in their practice and hasn't been seen for more than a year. 06/14: hospitalist recs re POTS appreciated. return metoprolol to outpt dosing of 50 mg daily as pt HR 99. awaiting GI eval. case discussed with rheum, Dr. Carmona, who is not available for full consult but did advise. will order labs as instructed and request neuro consult as well for opinion re LP and brain MRI. pt does continue more subdued and did actually sleep 8-9 hours last night, which is a striking improvement. 06/15: seen by neuro, low index of suspicion for central inflammatory process. rec MRI but no LP for now. ESR/CRP WNL today, other labs pending. increase HS zyprexa to 15 mg. no change in presentation from yesterday. 06/16 we are ordering blood work with lithium level for tomorrow. We are going to keep on Zyprexa 15 and reassess tomorrow. 06/17 lithium level in therapeutic level. BMP within normal limits. The patient is grossly disorganized still psychotic. 06/18: no improvement over w/e. lithium 0.83. add VPA 1000 QHS. increase HS zyprexa to 30 mg, decrease PRNs to 5 mg each. add ativan 2 mg QHS. sleeping less than 4 hours per night. order brain MRI, unclear if pt will be able to tolerate study. 06/19: hold brain MRI due to need to be still for 30 minutes. slept 2 hours overnight but then from 1000 through afternoon. appeared to be pacing more slowly and less voluble today. per rheum review of chart, labs not suggestive of active SLE. 06/20: remains slower than prior, observed in milieu not self-dialoguing for the first time by this software writer. slept 7 hours overnight. labs continue to not support active auto-immune illness. remains with paranoia about being murdered and delusions re swapping. continue current mgmt. 06/21: labs continue to not support active auto-immune disease. gradual daily improvements continue. continue current mgmt. 06/22: labs continue to not support active auto-immune disease. gradual daily improvements continue. continue current mgmt. 06/23: continues sleeping more, slower pacing and speech. today questioned delusion that she has a brain tumor. 06/24: lithium and VPA therapeutic. ammonia slightly elevated. pursue MRI and GI consult tomorrow. improved but not well. met with parents for extended period. 06/25: capgras delusions weakened from people HAVE BEEN replaced to people MIGHT GET replaced. continue current mgmt. 06/26: mtg with parents. asking for immediate transfer, concerned auto-immune etiologies not being adequately worked up. expressing desire that no further investigations be conducted at [facility]. has port in place for remicaid infusions, unclear if MRI-safe; will hold on MRI for now. continues to demonstrate gradual improvement, able to attend to conversation with mother and this software writer for about 5 minutes. will contact OSH for transfer per family's wishes. 06/27: referral to [facility] begun. case D/W joseph, plan for MRI and LP will proceed. mother has reversed her objection to further w/u here. presentation as per yesterday. continue current mgmt otherwise. 06/28: MRI completed today after 5 mg total ativan, 4 mg PO and 1 mg IM. information exchange with pt's mother. continue current mgmt. 06/29: MRI showing only cavernoma in left posterior putamen (this is a previously observed finding per pt's mother). continues to present improved. referral information submitted to [facility]. consult with neuro here re LP. tylenol for back pain, does not appear to be a dystonic rxn. continue current mgmt otherwise. 06/30- CTP reviewed no tumor with pt- wonder if this is more prodromal sys of psychotic disorder- Patient educated on: medication risk/benefits and other Informed Consent: further education needed Reason for continued inpatient stay Substantial Risk for: inability to function, rapid decompensation and med/psych decompensation Time Spent With Patient Time: Total time managing care of this patient today ____ minutes.
[2024-06-30] MEDS: Lithium Carbonate ER 300 MG TABLET.ER 600 MG PO ×2 (09:33→21:19)
[2024-06-30] MEDS: mycophenolate mofetiL 250 MG CAPSULE 1000 MG PO ×2 (09:33→21:19)
[2024-06-30] MEDS: Fludrocortisone Acetate 0.1 MG TABLET PO (09:33)
[2024-06-30 09:34] VITALS: BP 111/68; PULSE 81
[2024-06-30] MEDS: Metoprolol Succinate ER 50 MG TAB.ER.24H PO (09:34)
[2024-06-30 19:57] VITALS: BP 114/97; PULSE 116; RESP 16; TEMP 36.9; O2SAT 97
[2024-06-30] MEDS: hydrOXYzine HCL 25 MG TABLET PO (21:18)
[2024-06-30] MEDS: OLANZapine 10 MG TABLET 30 MG PO (21:18)
[2024-06-30] MEDS: Divalproex Sodium ER 500 MG TAB.ER.24H 1000 MG PO (21:18)
[2024-06-30] MEDS: LORazepam 1 MG TABLET 2 MG PO (21:19)
[2024-07-01] MEDS: Levothyroxine Sodium 25 MCG TABLET PO (06:36)
[2024-07-01 07:15] VITALS: BP 117/69; PULSE 77; RESP 16; TEMP 37.1; O2SAT 100
[2024-07-01 08:53] VITALS: BP 117/69; PULSE 77
[2024-07-01] MEDS: mycophenolate mofetiL 250 MG CAPSULE 1000 MG PO ×2 (08:53→20:53)
[2024-07-01] MEDS: Metoprolol Succinate ER 50 MG TAB.ER.24H PO (08:53)
[2024-07-01] MEDS: Lithium Carbonate ER 300 MG TABLET.ER 600 MG PO ×2 (08:54→20:53)
[2024-07-01] MEDS: Fludrocortisone Acetate 0.1 MG TABLET PO (08:54)
[2024-07-01] MEDS: Acetaminophen 325 MG TABLET 650 MG PO (08:56)
[2024-07-01] MEDS: Magnesium Hydrox/Alum Hydrox 30 ML ORAL.SUSP PO (09:02)
--- NOTE | 2024-07-01 11:33 | P.PNPSI_ITS ---
Subjective Subjective Date of Service: 07/01/24 Reason For Visit: kristie/psychosis Subjective Notes: Conditional Voluntary Interim History: 28 yo WF with decline in social function now psychotic symptoms - having thorough work up - underlying autoimmune disorder- who is responding slowly improving with antipsychotics- Saw her with father today- coloring together- father reassuring presence for patient- and pt more engagable less mumbling today- though later walking halls talking to self quiety. Not as likely to wander into others rooms. Reassured patient not acute process in brain causing these sys- by MRI_ though there is a small hemangioma- described to her like could be just something she was born with like a molina. Medication Compliance: Yes Side effects from medications: No Attending Groups: Intermittent Review of Systems Acute medical concerns: No Medical Review of Systems: unchanged Mental Status Exam Mental Status Exam Patient Appearance: Unkempt Patient Orientation: Person, Place and Situation Level of Consciousness: Awake Patient Behavior: Guarded, Posturing (leans to right), Passive, Restless and Poor Eye Contact Mood Description: Blunted and Apprehensive Patient Cognition Impaired: No Ability to Follow Directions: Fair Speech Pattern: Clear (more clear today) and Mumbled (at times) Delusions: Present (less discussion of! Parents not being her parents; still worried organic cause sys) Thought Process: Distracted Thought Content: positive for Disorganized (inc organization from yesterday to today!) Depressive Symptoms: Diff. Making Decisions and Difficulty Concentrating Abnormal Motor Activity Signs and Symptoms: Restlessness Judgement: Fair (-poor improving) Diagnostics Vital Signs (24Hr): Vital Signs - 24 hr 06/30/24 19:57 07/01/24 07:15 07/01/24 08:53 Temperature 98.5 F 98.8 F Pulse Rate 116 H 77 77 Respiratory Rate 16 16 Blood Pressure 114/97 H 117/69 117/69 Pulse Oximetry 97 100 Oxygen Delivery Method Room Air Room Air BMI result Body Mass Index 21.9 Labs 06/12/24 08:03 06/23/24 20:30 Imaging Radiology Impressions: ITS Impressions Head CT 06/11/24 11:34 IMPRESSION: 1. Normal CT scan of the brain. 2. No intracranial hemorrhage or skull fracture is seen. 3. No evidence of space occupying lesion could be found. 4. The current plain CT scan of the brain shows no diagnostic evidence of acute cerebral infarction. Cervical Spine CT 06/11/24 17:25 IMPRESSION: No acute intracranial hemorrhage. No acute, displaced cervical spine fracture. Head CT 06/11/24 17:25 IMPRESSION: No acute intracranial hemorrhage. No acute, displaced cervical spine fracture. Abdomen X-Ray 06/25/24 16:15 IMPRESSION: Unremarkable examination. Chest X-Ray 06/25/24 16:15 IMPRESSION: Chest willa catheter projects over the cavoatrial junction, unclear if this is MRI compatible. Brain MRI 06/28/24 12:05 IMPRESSION: 1. No evidence of intracranial hemorrhage, acute infarction, mass effect, edema, or extra-axial fluid collection. 2. No white matter abnormalities. 3. 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 There is no surrounding edema. Electronically signed by: Geovanny Cota MD 06/29/2024 03:04 PM EDT RP Medications Medications Current Medications Acetaminophen (Acetaminophen 325 Mg Tablet) 650 mg PO Q6H PRN PRN Reason: Headache/Pain Mild Scale (1-3) Last Admin: 07/01/24 08:56 Dose: 650 mg Al Hydroxide/Mg Hydroxide (Magnesium Hydrox/Alum Hydrox 30 Ml Oral.Susp) 30 ml PO Q6H PRN PRN Reason: Heartburn/Nausea Last Admin: 07/01/24 09:02 Dose: 30 ml Divalproex Sodium (Divalproex Sodium Er 500 Mg Tab.Er.24h) 1,000 mg PO BEDTIME [facility] Last Admin: 06/30/24 21:18 Dose: 1,000 mg Fludrocortisone Acetate (Fludrocortisone Acetate 0.1 Mg Tablet) 0.1 mg PO DAILY [facility] Last Admin: 07/01/24 08:54 Dose: 0.1 mg Hydroxyzine HCl (Hydroxyzine Hcl 25 Mg Tablet) 25 mg PO Q6H PRN PRN Reason: Anxiety Last Admin: 06/30/24 21:18 Dose: 25 mg Levothyroxine Sodium (Levothyroxine Sodium 25 Mcg Tablet) 25 mcg PO DAILY@0600 [facility] Last Admin: 07/01/24 06:36 Dose: 25 mcg [place] Carbonate ([place] Carbonate Er 300 Mg Tablet.Er) 600 mg PO BID [facility] Last Admin: 07/01/24 08:54 Dose: 600 mg Lorazepam (Lorazepam 1 Mg Tablet) 1 mg PO Q4H PRN PRN Reason: agitation Last Admin: 06/28/24 00:06 Dose: 1 mg Lorazepam (Lorazepam 1 Mg Tablet) 2 mg PO BEDTIME [facility] Last Admin: 06/30/24 21:19 Dose: 2 mg Lorazepam (Lorazepam 1 Mg Tablet) 4 mg PO DAILY PRN PRN Reason: 2 hours prior to studies/procedures Last Admin: 06/28/24 10:02 Dose: 4 mg Magnesium Hydroxide (Milk Of Magnesia 30 Ml Oral.Susp) 30 ml PO DAILY PRN PRN Reason: Constipation Metoprolol Succinate (Metoprolol Succinate Er 50 Mg Tab.Er.24h) 50 mg PO DAILY [facility]; Protocol Last Admin: 07/01/24 08:53 Dose: 50 mg Mycophenolate Mofetil (Mycophenolate Mofetil 250 Mg Capsule) 1,000 mg PO BID [facility] Last Admin: 07/01/24 08:53 Dose: 1,000 mg Nicotine Polacrilex (Nicotine Polacrilex 2 Mg Gum) 4 mg BUCCAL Q2H PRN PRN Reason: Nicotine Cravings Olanzapine (Olanzapine 10 Mg Tablet) 30 mg PO BEDTIME [facility] Last Admin: 06/30/24 21:18 Dose: 30 mg Olanzapine (Olanzapine Odt 10 Mg Tab.Rapdis) 5 mg TRANSLINGU Q4H PRN PRN Reason: agitation Last Admin: 06/24/24 09:29 Dose: 5 mg Allergies Allergies Allergy/AdvReac Type Severity Reaction Status Date / Time No Known Allergies Allergy Verified 06/10/24 15:16 Assessment & Plan Assessment & Plan (1) Acute psychosis: Status: Acute Code(s): F23 - Brief psychotic disorder Assessment and Plan: 28 years old woman who probably has acute and chronic primary psychotic psychiatric disease. My index of suspicion for a treatable physical reason in the brain including inflammation or infection is very low. An MRI of brain without contrast, if never done before, might be a consideration but I do not have a justification for lumbar puncture. 07/01- possibly more insidous process with psychosis following social functioning decline but could be confusing with ASD spectrum backround- though made it through college- less function for gradschool- psychosis improving with meds! CTP (2) SLE (systemic lupus erythematosus related syndrome): Status: Acute Code(s): M32.9 - Systemic lupus erythematosus, unspecified (3) Autoimmune hepatitis: Status: Acute Code(s): K75.4 - Autoimmune hepatitis (4) Lawrence thyroiditis: Status: Acute Code(s): E06.3 - Autoimmune thyroiditis (5) Crohn disease: Status: Acute Code(s): K50.90 - Crohn's disease, unspecified, without complications (6) POTS (postural orthostatic tachycardia syndrome): Status: Acute Code(s): G90.A - Postural orthostatic tachycardia syndrome [POTS] (7) Bipolar disorder: Status: Acute Code(s): F31.9 - Bipolar disorder, unspecified Patient educated on: medication risk/benefits, therapeutic strategies and other (mri) Guardian/Caregiver educated on: medication risk/benefits and other (mri) Informed Consent: further education needed Reason for continued inpatient stay Substantial Risk for: inability to function and rapid decompensation Time Spent With Patient Time: Total time managing care of this patient today ____ minutes.
[2024-07-01 20:45] VITALS: BP 131/92; PULSE 104; RESP 16; TEMP 36.8; O2SAT 98
[2024-07-01] MEDS: OLANZapine 10 MG TABLET 30 MG PO (20:53)
[2024-07-01] MEDS: hydrOXYzine HCL 25 MG TABLET PO (20:53)
[2024-07-01] MEDS: LORazepam 1 MG TABLET 2 MG PO (20:53)
[2024-07-01] MEDS: Divalproex Sodium ER 500 MG TAB.ER.24H 1000 MG PO (20:53)
[2024-07-02] MEDS: Levothyroxine Sodium 25 MCG TABLET PO (06:45)
[2024-07-02 07:36] VITALS: BP 125/79; PULSE 95; TEMP 37.3; O2SAT 99
[2024-07-02] MEDS: mycophenolate mofetiL 250 MG CAPSULE 1000 MG PO ×2 (09:06→20:15)
[2024-07-02] MEDS: Lithium Carbonate ER 300 MG TABLET.ER 600 MG PO ×2 (09:06→20:15)
[2024-07-02 09:07] VITALS: BP 131/73; PULSE 95
[2024-07-02] MEDS: Fludrocortisone Acetate 0.1 MG TABLET PO (09:07)
[2024-07-02] MEDS: Metoprolol Succinate ER 50 MG TAB.ER.24H PO (09:07)
--- NOTE | 2024-07-02 12:47 | HO.PSYCHPN ---
Subjective Subjective Date of Service: 07/02/24 Reason For Visit: kristie/psychosis Subjective Notes: Conditional Voluntary Interim History: 28-year-old female with history of lupus history of bipolar disorder. MRI was generally unremarkable except for small area vascular changes not thought to be relevant to patient's presentation patient pacing internally preoccupied with intrusive auditory hallucinations. She did decide to move back to [place] with her parents. Reportedly more alert able to engage but not going to groups Medication Compliance: Yes Side effects from medications: No Attending Groups: Intermittent Review of Systems Acute medical concerns: No Medical Review of Systems: unchanged Mental Status Exam Mental Status Exam Patient Appearance: Unkempt Patient Orientation: Person, Place and Situation Level of Consciousness: Awake Patient Behavior: Guarded and Passive Mood Description: Blunted and Apprehensive Affect Description: Constricted Patient Cognition Impaired: No Ability to Follow Directions: Fair Speech Pattern: Clear (more clear today) and Impoverished Hallucinations: Auditory Delusions: Present (less discussion of! Parents not being her parents; still worried organic cause sys) Thought Process: Distracted Thought Content: positive for Disorganized (inc organization from yesterday to today!) Depressive Symptoms: Diff. Making Decisions and Difficulty Concentrating Abnormal Motor Activity Signs and Symptoms: Restlessness Judgement: Fair (-poor improving) Judgement and Insight: Patient was able to sit down have a conversation was not mumbling was able to discuss intrusive hallucinations going through her mind was quite concerned regarding a brain tumor when over and I results with the patient but she was quite perseverative denied active SI she was able to accept that she had gone off her medication including both her psychiatric and medication for lupus prior to admission better able to reason Diagnostics Vital Signs (24Hr): Vital Signs - 24 hr 07/01/24 20:45 07/02/24 07:36 07/02/24 09:07 Temperature 98.2 F 99.1 F Pulse Rate 104 H 95 95 Respiratory Rate 16 Blood Pressure 131/92 H 125/79 131/73 Pulse Oximetry 98 99 Oxygen Delivery Method Room Air Room Air BMI result Body Mass Index 21.9 Labs 06/12/24 08:03 06/23/24 20:30 Imaging Radiology Impressions: ITS Impressions Head CT 06/11/24 11:34 IMPRESSION: 1. Normal CT scan of the brain. 2. No intracranial hemorrhage or skull fracture is seen. 3. No evidence of space occupying lesion could be found. 4. The current plain CT scan of the brain shows no diagnostic evidence of acute cerebral infarction. Cervical Spine CT 06/11/24 17:25 IMPRESSION: No acute intracranial hemorrhage. No acute, displaced cervical spine fracture. Head CT 06/11/24 17:25 IMPRESSION: No acute intracranial hemorrhage. No acute, displaced cervical spine fracture. Abdomen X-Ray 06/25/24 16:15 IMPRESSION: Unremarkable examination. Chest X-Ray 06/25/24 16:15 IMPRESSION: Chest willa catheter projects over the cavoatrial junction, unclear if this is MRI compatible. Brain MRI 06/28/24 12:05 IMPRESSION: 1. No evidence of intracranial hemorrhage, acute infarction, mass effect, edema, or extra-axial fluid collection. 2. No white matter abnormalities. 3. 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 There is no surrounding edema. Electronically signed by: Geovanny Cota MD 06/29/2024 03:04 PM EDT Medications Medications Current Medications Acetaminophen (Acetaminophen 325 Mg Tablet) 650 mg PO Q6H PRN PRN Reason: Headache/Pain Mild Scale (1-3) Last Admin: 07/01/24 08:56 Dose: 650 mg Al Hydroxide/Mg Hydroxide (Magnesium Hydrox/Alum Hydrox 30 Ml Oral.Susp) 30 ml PO Q6H PRN PRN Reason: Heartburn/Nausea Last Admin: 07/01/24 09:02 Dose: 30 ml Divalproex Sodium (Divalproex Sodium Er 500 Mg Tab.Er.24h) 1,000 mg PO BEDTIME [facility] Last Admin: 07/01/24 20:53 Dose: 1,000 mg Fludrocortisone Acetate (Fludrocortisone Acetate 0.1 Mg Tablet) 0.1 mg PO DAILY [facility] Last Admin: 07/02/24 09:07 Dose: 0.1 mg Hydroxyzine HCl (Hydroxyzine Hcl 25 Mg Tablet) 25 mg PO Q6H PRN PRN Reason: Anxiety Last Admin: 07/01/24 20:53 Dose: 25 mg Levothyroxine Sodium (Levothyroxine Sodium 25 Mcg Tablet) 25 mcg PO DAILY@0600 [facility] Last Admin: 07/02/24 06:45 Dose: 25 mcg [place] Carbonate ([place] Carbonate Er 300 Mg Tablet.Er) 600 mg PO BID [facility] Last Admin: 07/02/24 09:06 Dose: 600 mg Lorazepam (Lorazepam 1 Mg Tablet) 1 mg PO Q4H PRN PRN Reason: agitation Last Admin: 06/28/24 00:06 Dose: 1 mg Lorazepam (Lorazepam 1 Mg Tablet) 2 mg PO BEDTIME [facility] Last Admin: 07/01/24 20:53 Dose: 2 mg Lorazepam (Lorazepam 1 Mg Tablet) 4 mg PO DAILY PRN PRN Reason: 2 hours prior to studies/procedures Last Admin: 06/28/24 10:02 Dose: 4 mg Magnesium Hydroxide (Milk Of Magnesia 30 Ml Oral.Susp) 30 ml PO DAILY PRN PRN Reason: Constipation Metoprolol Succinate (Metoprolol Succinate Er 50 Mg Tab.Er.24h) 50 mg PO DAILY [facility]; Protocol Last Admin: 07/02/24 09:07 Dose: 50 mg Mycophenolate Mofetil (Mycophenolate Mofetil 250 Mg Capsule) 1,000 mg PO BID [facility] Last Admin: 07/02/24 09:06 Dose: 1,000 mg Nicotine Polacrilex (Nicotine Polacrilex 2 Mg Gum) 4 mg BUCCAL Q2H PRN PRN Reason: Nicotine Cravings Olanzapine (Olanzapine 10 Mg Tablet) 30 mg PO BEDTIME [facility] Last Admin: 07/01/24 20:53 Dose: 30 mg Olanzapine (Olanzapine Odt 10 Mg Tab.Rapdis) 5 mg TRANSLINGU Q4H PRN PRN Reason: agitation Last Admin: 06/24/24 09:29 Dose: 5 mg Allergies Allergies Allergy/AdvReac Type Severity Reaction Status Date / Time caffeine Allergy Unknown Verified 07/01/24 18:27 mushroom Allergy Hives Verified 07/01/24 18:27 pineapple Allergy Hives Verified 07/01/24 18:27 Assessment & Plan Assessment & Plan (1) Bipolar disorder: Status: Acute Code(s): F31.9 - Bipolar disorder, unspecified (2) Acute psychosis: Status: Acute Code(s): F23 - Brief psychotic disorder Assessment and Plan: 28 years old woman who probably has acute and chronic primary psychotic psychiatric disease. My index of suspicion for a treatable physical reason in the brain including inflammation or infection is very low. An MRI of brain without contrast, if never done before, might be a consideration but I do not have a justification for lumbar puncture. 07/01- possibly more insidous process with psychosis following social functioning decline but could be confusing with ASD spectrum backround- though made it through college- less function for gradschool- psychosis improving with meds! CTP (3) SLE (systemic lupus erythematosus related syndrome): Status: Acute Code(s): M32.9 - Systemic lupus erythematosus, unspecified (4) Autoimmune hepatitis: Status: Acute Code(s): K75.4 - Autoimmune hepatitis (5) [place] thyroiditis: Status: Acute Code(s): E06.3 - Autoimmune thyroiditis (6) Crohn disease: Status: Acute Code(s): K50.90 - Crohn's disease, unspecified, without complications (7) POTS (postural orthostatic tachycardia syndrome): Status: Acute Code(s): G90.A - Postural orthostatic tachycardia syndrome [POTS] Plan Patient seems to be responding to the combination of olanzapine Depakote and lithium. Patient agreeable to moving back to [place] with her parents reportedly. Neuro reconsult with Dr. Omer for question of need for lumbar puncture question of lupus cerebritis or other potential inflammatory cause. Patient has long history of intermittent psychosis seems to make this much less likely Patient educated on: diagnosis, medical condition and other Informed Consent: further education needed Reason for continued inpatient stay Substantial Risk for: inability to function and rapid decompensation Time Spent With Patient Time: Total time managing care of this patient today __27__ minutes.
[2024-07-02 19:12] VITALS: BP 132/63; PULSE 100; RESP 16; TEMP 37; O2SAT 97
[2024-07-02] MEDS: Divalproex Sodium ER 500 MG TAB.ER.24H 1000 MG PO (20:14)
[2024-07-02] MEDS: hydrOXYzine HCL 25 MG TABLET PO (20:14)
[2024-07-02] MEDS: OLANZapine 10 MG TABLET 30 MG PO (20:14)
[2024-07-02] MEDS: LORazepam 1 MG TABLET 2 MG PO (20:15)
[2024-07-02] MEDS: Acetaminophen 325 MG TABLET 650 MG PO (20:20)
[2024-07-03] MEDS: LORazepam 1 MG TABLET PO ×2 (01:25→19:27)
[2024-07-03 07:38] VITALS: BP 126/70; PULSE 90; RESP 14; TEMP 37.1; O2SAT 98
[2024-07-03] MEDS: Lithium Carbonate ER 300 MG TABLET.ER 600 MG PO ×2 (08:22→20:32)
[2024-07-03] MEDS: Fludrocortisone Acetate 0.1 MG TABLET PO (08:22)
[2024-07-03] MEDS: Metoprolol Succinate ER 50 MG TAB.ER.24H PO (08:23)
[2024-07-03] MEDS: Levothyroxine Sodium 25 MCG TABLET PO (08:23)
[2024-07-03] MEDS: mycophenolate mofetiL 250 MG CAPSULE 1000 MG PO ×2 (08:27→20:33)
[2024-07-03] MEDS: Acetaminophen 325 MG TABLET 650 MG PO (19:27)
[2024-07-03 20:00] VITALS: BP 132/89; PULSE 112; RESP 16; TEMP 37.2; O2SAT 96
[2024-07-03] MEDS: Divalproex Sodium ER 500 MG TAB.ER.24H 1000 MG PO (20:31)
[2024-07-03] MEDS: OLANZapine 10 MG TABLET 30 MG PO (20:32)
[2024-07-03] MEDS: LORazepam 1 MG TABLET 2 MG PO (20:33)
[2024-07-03] MEDS: traZODone HCL 50 MG TABLET PO (21:55)
[2024-07-03] MEDS: hydrOXYzine HCL 25 MG TABLET PO (21:55)
--- NOTE | 2024-07-03 22:38 | P.PNPSI_ITS ---
Subjective Subjective Date of Service: 07/03/24 Reason For Visit: kristie/psychosis Interim History: mental status essentially normal. no delusions or paranoia expressed. discuss her potentially discharging in a week if trajectory continues. seen with mother. per staff, denies depression. appears suspicious. Mental Status Exam Mental Status Exam Narrative: dressed in personal clothes. disheveled. pacing, more slowly than prior. no self-dialogue. able to attend to conversation with MD and mother for at least 10 minutes. thoughts linear and logical, no paranoia or delusions expressed. affect constricted, hypo-intense, non-labile. mood not assessed. no SI/HI/AVH expressed. Diagnostics Vital Signs (24Hr): Vital Signs - 24 hr 07/03/24 07:38 Temperature 98.8 F Pulse Rate 90 Respiratory Rate 14 Blood Pressure 126/70 Pulse Oximetry 98 Oxygen Delivery Method Room Air BMI result Body Mass Index 21.9 Labs 06/12/24 08:03 06/23/24 20:30 Imaging Radiology Impressions: ITS Impressions Head CT 06/11/24 11:34 IMPRESSION: 1. Normal CT scan of the brain. 2. No intracranial hemorrhage or skull fracture is seen. 3. No evidence of space occupying lesion could be found. 4. The current plain CT scan of the brain shows no diagnostic evidence of acute cerebral infarction. Cervical Spine CT 06/11/24 17:25 IMPRESSION: No acute intracranial hemorrhage. No acute, displaced cervical spine fracture. Head CT 06/11/24 17:25 IMPRESSION: No acute intracranial hemorrhage. No acute, displaced cervical spine fracture. Abdomen X-Ray 06/25/24 16:15 IMPRESSION: Unremarkable examination. Chest X-Ray 06/25/24 16:15 IMPRESSION: Chest willa catheter projects over the cavoatrial junction, unclear if this is MRI compatible. Brain MRI 06/28/24 12:05 IMPRESSION: 1. No evidence of intracranial hemorrhage, acute infarction, mass effect, edema, or extra-axial fluid collection. 2. No white matter abnormalities. 3. 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 There is no surrounding edema. Electronically signed by: Geovanny Cota MD 06/29/2024 03:04 PM EDT Medications Medications Current Medications Acetaminophen (Acetaminophen 325 Mg Tablet) 650 mg PO Q6H PRN PRN Reason: Headache/Pain Mild Scale (1-3) Last Admin: 07/03/24 19:27 Dose: 650 mg Al Hydroxide/Mg Hydroxide (Magnesium Hydrox/Alum Hydrox 30 Ml Oral.Susp) 30 ml PO Q6H PRN PRN Reason: Heartburn/Nausea Last Admin: 07/01/24 09:02 Dose: 30 ml Divalproex Sodium (Divalproex Sodium Er 500 Mg Tab.Er.24h) 1,000 mg PO BEDTIME [facility] Last Admin: 07/03/24 20:31 Dose: 1,000 mg Fludrocortisone Acetate (Fludrocortisone Acetate 0.1 Mg Tablet) 0.1 mg PO DAILY [facility] Last Admin: 07/03/24 08:22 Dose: 0.1 mg Hydroxyzine HCl (Hydroxyzine Hcl 25 Mg Tablet) 25 mg PO Q6H PRN PRN Reason: Anxiety Last Admin: 07/03/24 21:55 Dose: 25 mg Levothyroxine Sodium (Levothyroxine Sodium 25 Mcg Tablet) 25 mcg PO DAILY@0600 [facility] Last Admin: 07/03/24 08:23 Dose: 25 mcg [place] Carbonate ([place] Carbonate Er 300 Mg Tablet.Er) 600 mg PO BID [facility] Last Admin: 07/03/24 20:32 Dose: 600 mg Lorazepam (Lorazepam 1 Mg Tablet) 1 mg PO Q4H PRN PRN Reason: agitation Last Admin: 07/03/24 19:27 Dose: 1 mg Lorazepam (Lorazepam 1 Mg Tablet) 2 mg PO BEDTIME [facility] Last Admin: 07/03/24 20:33 Dose: 2 mg Lorazepam (Lorazepam 1 Mg Tablet) 4 mg PO DAILY PRN PRN Reason: 2 hours prior to studies/procedures Last Admin: 06/28/24 10:02 Dose: 4 mg Magnesium Hydroxide (Milk Of Magnesia 30 Ml Oral.Susp) 30 ml PO DAILY PRN PRN Reason: Constipation Metoprolol Succinate (Metoprolol Succinate Er 50 Mg Tab.Er.24h) 50 mg PO DAILY [facility]; Protocol Last Admin: 07/03/24 08:23 Dose: 50 mg Mycophenolate Mofetil (Mycophenolate Mofetil 250 Mg Capsule) 1,000 mg PO BID [facility] Last Admin: 07/03/24 20:33 Dose: 1,000 mg Nicotine Polacrilex (Nicotine Polacrilex 2 Mg Gum) 4 mg BUCCAL Q2H PRN PRN Reason: Nicotine Cravings Olanzapine (Olanzapine 10 Mg Tablet) 30 mg PO BEDTIME [facility] Last Admin: 07/03/24 20:32 Dose: 30 mg Olanzapine (Olanzapine Odt 10 Mg Tab.Rapdis) 5 mg TRANSLINGU Q4H PRN PRN Reason: agitation Last Admin: 06/24/24 09:29 Dose: 5 mg Trazodone HCl (Trazodone Hcl 50 Mg Tablet) 50 mg PO BEDTIME [facility] PRN PRN Reason: Insomnia Last Admin: 07/03/24 21:55 Dose: 50 mg Allergies Allergies Allergy/AdvReac Type Severity Reaction Status Date / Time caffeine Allergy Unknown Verified 07/01/24 18:27 mushroom Allergy Hives Verified 07/01/24 18:27 pineapple Allergy Hives Verified 07/01/24 18:27 Assessment & Plan Assessment & Plan (1) Bipolar disorder: Status: Acute Code(s): F31.9 - Bipolar disorder, unspecified (2) Acute psychosis: Status: Acute Code(s): F23 - Brief psychotic disorder Assessment and Plan: 28 years old woman who probably has acute and chronic primary psychotic psychiatric disease. My index of suspicion for a treatable physical reason in the brain including inflammation or infection is very low. An MRI of brain without contrast, if never done before, might be a consideration but I do not have a justification for lumbar puncture. 07/01- possibly more insidous process with psychosis following social functioning decline but could be confusing with ASD spectrum backround- though made it through college- less function for gradschool- psychosis improving with meds! 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 Patient agreeable to moving back to [place] with her parents reportedly. Neuro reconsult with Dr. Omer for question of need for lumbar puncture question of lupus cerebritis or other potential inflammatory cause. 07/03: dramatic improvement from last week. essentially normal MSE, c/o restlessness only. reported h/o same rxn to hydroxyzine, which was DCed today. will observe another day and potentially decrease zyprexa out of concern for akathisia. alternatively, could be residual kristie Sx. Reason for continued inpatient stay Substantial Risk for: inability to function and rapid decompensation Time Spent With Patient Time: Total time managing care of this patient today __35__ minutes.
[2024-07-04] MEDS: Levothyroxine Sodium 25 MCG TABLET PO (06:32)
[2024-07-04 07:28] VITALS: BP 111/59; PULSE 89; RESP 16; TEMP 36.8; O2SAT 97
[2024-07-04 09:00] VITALS: BP 115/68; PULSE 98
[2024-07-04] MEDS: Lithium Carbonate ER 300 MG TABLET.ER 600 MG PO ×2 (09:24→20:36)
[2024-07-04] MEDS: Fludrocortisone Acetate 0.1 MG TABLET PO (09:24)
[2024-07-04 09:25] VITALS: BP 115/68; PULSE 98
[2024-07-04] MEDS: mycophenolate mofetiL 250 MG CAPSULE 1000 MG PO ×2 (09:25→20:36)
[2024-07-04] MEDS: Metoprolol Succinate ER 50 MG TAB.ER.24H PO (09:25)
[2024-07-04 20:00] VITALS: BP 119/72; PULSE 90; RESP 16; TEMP 36.9; O2SAT 96
[2024-07-04] MEDS: OLANZapine 10 MG TABLET 30 MG PO (20:35)
[2024-07-04] MEDS: Divalproex Sodium ER 500 MG TAB.ER.24H 1000 MG PO (20:35)
[2024-07-04] MEDS: LORazepam 1 MG TABLET 2 MG PO (20:36)
--- NOTE | 2024-07-04 22:45 | HO.PSYCHPN ---
Subjective Subjective Date of Service: 07/04/24 Reason For Visit: kristie/psychosis Interim History: continues daily improvement. lucid, logical, topical. reports some trouble sleeping, less restlessness. per staff, less pacing and talking to self. c/o feeling overstimulated on the unit. c/o anxiety and insomnia. Mental Status Exam Mental Status Exam Narrative: dressed in personal clothes. disheveled. less pacing, more slowly than prior. no self-dialogue. able to attend to conversation with MD for at least 10 minutes. thoughts linear and logical, no paranoia or delusions expressed. affect constricted, hypo-intense, non-labile. mood not assessed. no SI/HI/AVH expressed. Diagnostics Vital Signs (24Hr): Vital Signs - 24 hr 07/04/24 07:28 07/04/24 09:00 07/04/24 09:25 Temperature 98.2 F Pulse Rate 89 98 98 Respiratory Rate 16 Blood Pressure 111/59 L 115/68 115/68 Pulse Oximetry 97 Oxygen Delivery Method Room Air 07/04/24 20:00 Temperature 98.4 F Pulse Rate 90 Respiratory Rate 16 Blood Pressure 119/72 Pulse Oximetry 96 Oxygen Delivery Method Room Air BMI result Body Mass Index 21.9 Labs 06/12/24 08:03 06/23/24 20:30 Imaging Radiology Impressions: ITS Impressions Head CT 06/11/24 11:34 IMPRESSION: 1. Normal CT scan of the brain. 2. No intracranial hemorrhage or skull fracture is seen. 3. No evidence of space occupying lesion could be found. 4. The current plain CT scan of the brain shows no diagnostic evidence of acute cerebral infarction. Cervical Spine CT 06/11/24 17:25 IMPRESSION: No acute intracranial hemorrhage. No acute, displaced cervical spine fracture. Head CT 06/11/24 17:25 IMPRESSION: No acute intracranial hemorrhage. No acute, displaced cervical spine fracture. Abdomen X-Ray 06/25/24 16:15 IMPRESSION: Unremarkable examination. Chest X-Ray 06/25/24 16:15 IMPRESSION: Chest willa catheter projects over the cavoatrial junction, unclear if this is MRI compatible. Brain MRI 06/28/24 12:05 IMPRESSION: 1. No evidence of intracranial hemorrhage, acute infarction, mass effect, edema, or extra-axial fluid collection. 2. No white matter abnormalities. 3. 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 There is no surrounding edema. Electronically signed by: Geovanny Cota MD 06/29/2024 03:04 PM EDT Medications Medications Current Medications Acetaminophen (Acetaminophen 325 Mg Tablet) 650 mg PO Q6H PRN PRN Reason: Headache/Pain Mild Scale (1-3) Last Admin: 07/03/24 19:27 Dose: 650 mg Al Hydroxide/Mg Hydroxide (Magnesium Hydrox/Alum Hydrox 30 Ml Oral.Susp) 30 ml PO Q6H PRN PRN Reason: Heartburn/Nausea Last Admin: 07/01/24 09:02 Dose: 30 ml Divalproex Sodium (Divalproex Sodium Er 500 Mg Tab.Er.24h) 1,000 mg PO BEDTIME [facility] Last Admin: 07/04/24 20:35 Dose: 1,000 mg Fludrocortisone Acetate (Fludrocortisone Acetate 0.1 Mg Tablet) 0.1 mg PO DAILY [facility] Last Admin: 07/04/24 09:24 Dose: 0.1 mg Levothyroxine Sodium (Levothyroxine Sodium 25 Mcg Tablet) 25 mcg PO DAILY@0600 [facility] Last Admin: 07/04/24 06:32 Dose: 25 mcg [place] Carbonate ([place] Carbonate Er 300 Mg Tablet.Er) 600 mg PO BID [facility] Last Admin: 07/04/24 20:36 Dose: 600 mg Lorazepam (Lorazepam 1 Mg Tablet) 1 mg PO Q4H PRN PRN Reason: agitation Last Admin: 07/03/24 19:27 Dose: 1 mg Lorazepam (Lorazepam 1 Mg Tablet) 2 mg PO BEDTIME [facility] Last Admin: 07/04/24 20:36 Dose: 2 mg Lorazepam (Lorazepam 1 Mg Tablet) 4 mg PO DAILY PRN PRN Reason: 2 hours prior to studies/procedures Last Admin: 06/28/24 10:02 Dose: 4 mg Magnesium Hydroxide (Milk Of Magnesia 30 Ml Oral.Susp) 30 ml PO DAILY PRN PRN Reason: Constipation Metoprolol Succinate (Metoprolol Succinate Er 50 Mg Tab.Er.24h) 50 mg PO DAILY [facility]; Protocol Last Admin: 07/04/24 09:25 Dose: 50 mg Mycophenolate Mofetil (Mycophenolate Mofetil 250 Mg Capsule) 1,000 mg PO BID [facility] Last Admin: 07/04/24 20:36 Dose: 1,000 mg Nicotine Polacrilex (Nicotine Polacrilex 2 Mg Gum) 4 mg BUCCAL Q2H PRN PRN Reason: Nicotine Cravings Olanzapine (Olanzapine 10 Mg Tablet) 30 mg PO BEDTIME [facility] Last Admin: 07/04/24 20:35 Dose: 30 mg Olanzapine (Olanzapine Odt 10 Mg Tab.Rapdis) 5 mg TRANSLINGU Q4H PRN PRN Reason: agitation Last Admin: 06/24/24 09:29 Dose: 5 mg Trazodone HCl (Trazodone Hcl 50 Mg Tablet) 50 mg PO BEDTIME MRX1 PRN PRN Reason: Insomnia Last Admin: 07/03/24 21:55 Dose: 50 mg Allergies Allergies Allergy/AdvReac Type Severity Reaction Status Date / Time caffeine Allergy Unknown Verified 07/01/24 18:27 mushroom Allergy Hives Verified 07/01/24 18:27 pineapple Allergy Hives Verified 07/01/24 18:27 Assessment & Plan Assessment & Plan (1) Bipolar disorder: Status: Acute Code(s): F31.9 - Bipolar disorder, unspecified (2) Acute psychosis: Status: Acute Code(s): F23 - Brief psychotic disorder Assessment and Plan: 28 years old woman who probably has acute and chronic primary psychotic psychiatric disease. My index of suspicion for a treatable physical reason in the brain including inflammation or infection is very low. An MRI of brain without contrast, if never done before, might be a consideration but I do not have a justification for lumbar puncture. 07/01- possibly more insidous process with psychosis following social functioning decline but could be confusing with ASD spectrum backround- though made it through college- less function for gradschool- psychosis improving with meds! 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 Patient agreeable to moving back to [place] with her parents reportedly. Neuro reconsult with Dr. Omer for question of need for lumbar puncture question of lupus cerebritis or other potential inflammatory cause. 07/03: dramatic improvement from last week. essentially normal MSE, c/o restlessness only. reported h/o same rxn to hydroxyzine, which was DCed today. will observe another day and potentially decrease zyprexa out of concern for akathisia. alternatively, could be residual kristie Sx. 07/04: less restless. some difficulty sleeping. requesting discharge sometime in the next week. willing to stay to work on sleep. transfer not medically indicated, will cancel request. Reason for continued inpatient stay Substantial Risk for: rapid decompensation Time Spent With Patient Time: Total time managing care of this patient today __35__ minutes.
[2024-07-05] MEDS: Levothyroxine Sodium 25 MCG TABLET PO (06:22)
[2024-07-05 07:00] VITALS: BMI 23.5
[2024-07-05 08:00] VITALS: BP 110/61; PULSE 85; RESP 16; TEMP 37.4; O2SAT 97
[2024-07-05] MEDS: mycophenolate mofetiL 250 MG CAPSULE 1000 MG PO ×2 (09:19→20:29)
[2024-07-05] MEDS: Fludrocortisone Acetate 0.1 MG TABLET PO (09:19)
[2024-07-05] MEDS: Lithium Carbonate ER 300 MG TABLET.ER 600 MG PO ×2 (09:19→20:28)
[2024-07-05 09:49] VITALS: BP 113/75; PULSE 97
[2024-07-05] MEDS: Metoprolol Succinate ER 50 MG TAB.ER.24H PO (09:49)
--- NOTE | 2024-07-05 12:11 | HO.PSYCHPN ---
Subjective Subjective Date of Service: 07/05/24 Reason For Visit: kristie/psychosis Interim History: met with patient; discussed with team pt reports she's feeling back to her regular self and thinks she is ready for discharge. She explains that she was off her medications ([place]) for months due to malfunctioning pill dispenser. She reports all AH and paranoid thoughts are resolved. She says all SI/HI full resolved as well. Pt reports sleeping well and just waiting for discharge. Mental Status Exam Mental Status Exam Narrative: Pt is alert and oriented; behavior is cooperative, friendly and calm; patient is not in distress; dressed in casual attire with unkempt hair; mood is described as good; and affect somewhat blunted; eye contact appropriate; Speech is a little slowed, but normal volume and prosody; seems to be with some mild psychomotor retardation present; thought process is organized and goal directed; Thought content is on tx, discharge; otherwise pertinent to relevant topics and without any delusional content, paranoid ideations or grandiosity; denies any SI/HI. Denies AVH; Patients insight and judgment appear intact. Diagnostics Vital Signs (24Hr): Vital Signs - 24 hr 07/04/24 20:00 07/05/24 08:00 07/05/24 09:49 Temperature 98.4 F 99.4 F Pulse Rate 90 85 97 Respiratory Rate 16 16 Blood Pressure 119/72 110/61 113/75 Pulse Oximetry 96 97 Oxygen Delivery Method Room Air Room Air BMI result Body Mass Index 21.9 Labs 06/12/24 08:03 06/23/24 20:30 Imaging Radiology Impressions: ITS Impressions Head CT 06/11/24 11:34 IMPRESSION: 1. Normal CT scan of the brain. 2. No intracranial hemorrhage or skull fracture is seen. 3. No evidence of space occupying lesion could be found. 4. The current plain CT scan of the brain shows no diagnostic evidence of acute cerebral infarction. Cervical Spine CT 06/11/24 17:25 IMPRESSION: No acute intracranial hemorrhage. No acute, displaced cervical spine fracture. Head CT 06/11/24 17:25 IMPRESSION: No acute intracranial hemorrhage. No acute, displaced cervical spine fracture. Abdomen X-Ray 06/25/24 16:15 IMPRESSION: Unremarkable examination. Chest X-Ray 06/25/24 16:15 IMPRESSION: Chest willa catheter projects over the cavoatrial junction, unclear if this is MRI compatible. Brain MRI 06/28/24 12:05 IMPRESSION: 1. No evidence of intracranial hemorrhage, acute infarction, mass effect, edema, or extra-axial fluid collection. 2. No white matter abnormalities. 3. 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 There is no surrounding edema. Electronically signed by: Geovanny Cota MD 06/29/2024 03:04 PM EDT Medications Medications Current Medications Acetaminophen (Acetaminophen 325 Mg Tablet) 650 mg PO Q6H PRN PRN Reason: Headache/Pain Mild Scale (1-3) Last Admin: 07/03/24 19:27 Dose: 650 mg Al Hydroxide/Mg Hydroxide (Magnesium Hydrox/Alum Hydrox 30 Ml Oral.Susp) 30 ml PO Q6H PRN PRN Reason: Heartburn/Nausea Last Admin: 07/01/24 09:02 Dose: 30 ml Divalproex Sodium (Divalproex Sodium Er 500 Mg Tab.Er.24h) 1,000 mg PO BEDTIME [facility] Last Admin: 07/04/24 20:35 Dose: 1,000 mg Fludrocortisone Acetate (Fludrocortisone Acetate 0.1 Mg Tablet) 0.1 mg PO DAILY [facility] Last Admin: 07/05/24 09:19 Dose: 0.1 mg Levothyroxine Sodium (Levothyroxine Sodium 25 Mcg Tablet) 25 mcg PO DAILY@0600 [facility] Last Admin: 07/05/24 06:22 Dose: 25 mcg [place] Carbonate ([place] Carbonate Er 300 Mg Tablet.Er) 600 mg PO BID [facility] Last Admin: 07/05/24 09:19 Dose: 600 mg Lorazepam (Lorazepam 1 Mg Tablet) 1 mg PO Q4H PRN PRN Reason: agitation Last Admin: 07/03/24 19:27 Dose: 1 mg Lorazepam (Lorazepam 1 Mg Tablet) 2 mg PO BEDTIME [facility] Last Admin: 07/04/24 20:36 Dose: 2 mg Lorazepam (Lorazepam 1 Mg Tablet) 4 mg PO DAILY PRN PRN Reason: 2 hours prior to studies/procedures Last Admin: 06/28/24 10:02 Dose: 4 mg Magnesium Hydroxide (Milk Of Magnesia 30 Ml Oral.Susp) 30 ml PO DAILY PRN PRN Reason: Constipation Metoprolol Succinate (Metoprolol Succinate Er 50 Mg Tab.Er.24h) 50 mg PO DAILY [facility]; Protocol Last Admin: 07/05/24 09:49 Dose: 50 mg Mycophenolate Mofetil (Mycophenolate Mofetil 250 Mg Capsule) 1,000 mg PO BID [facility] Last Admin: 07/05/24 09:19 Dose: 1,000 mg Nicotine Polacrilex (Nicotine Polacrilex 2 Mg Gum) 4 mg BUCCAL Q2H PRN PRN Reason: Nicotine Cravings Olanzapine (Olanzapine 10 Mg Tablet) 30 mg PO BEDTIME [facility] Last Admin: 07/04/24 20:35 Dose: 30 mg Olanzapine (Olanzapine Odt 10 Mg Tab.Rapdis) 5 mg TRANSLINGU Q4H PRN PRN Reason: agitation Last Admin: 06/24/24 09:29 Dose: 5 mg Trazodone HCl (Trazodone Hcl 50 Mg Tablet) 50 mg PO BEDTIME MRX1 PRN PRN Reason: Insomnia Last Admin: 07/03/24 21:55 Dose: 50 mg Allergies Allergies Allergy/AdvReac Type Severity Reaction Status Date / Time caffeine Allergy Unknown Verified 07/01/24 18:27 mushroom Allergy Hives Verified 07/01/24 18:27 pineapple Allergy Hives Verified 07/01/24 18:27 Assessment & Plan Assessment & Plan (1) Bipolar disorder: Status: Acute Code(s): F31.9 - Bipolar disorder, unspecified (2) Acute psychosis: Status: Acute Code(s): F23 - Brief psychotic disorder Assessment and Plan: 28 years old woman who probably has acute and chronic primary psychotic psychiatric disease. My index of suspicion for a treatable physical reason in the brain including inflammation or infection is very low. An MRI of brain without contrast, if never done before, might be a consideration but I do not have a justification for lumbar puncture. 07/01- possibly more insidous process with psychosis following social functioning decline but could be confusing with ASD spectrum backround- though made it through college- less function for gradschool- psychosis improving with meds! 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 Patient agreeable to moving back to [place] with her parents reportedly. Neuro reconsult with Dr. Omer for question of need for lumbar puncture question of lupus cerebritis or other potential inflammatory cause. 07/03: dramatic improvement from last week. essentially normal MSE, c/o restlessness only. reported h/o same rxn to hydroxyzine, which was DCed today. will observe another day and potentially decrease zyprexa out of concern for akathisia. alternatively, could be residual kristie Sx. 07/04: less restless. some difficulty sleeping. requesting discharge sometime in the next week. willing to stay to work on sleep. transfer not medically indicated, will cancel request. 07/05: pt reports she's feeling back to her regular self and thinks she is ready for discharge. She explains that she was off her medications ([place]) for months due to malfunctioning pill dispenser. She reports all AH and paranoid thoughts are resolved. She says all SI/HI full resolved as well. Pt reports sleeping well and just waiting for discharge. -continue current tx plan Patient educated on: diagnosis and medication risk/benefits Informed Consent: understands Reason for continued inpatient stay Substantial Risk for: rapid decompensation and med/psych decompensation Time Spent With Patient Time: Total time managing care of this patient today ____ minutes.
[2024-07-05] MEDS: LORazepam 1 MG TABLET PO ×2 (12:38→23:20)
[2024-07-05 20:00] VITALS: BP 111/67; PULSE 99; RESP 18; TEMP 36.9; O2SAT 97
[2024-07-05] MEDS: OLANZapine 10 MG TABLET 30 MG PO (20:27)
[2024-07-05] MEDS: LORazepam 1 MG TABLET 2 MG PO (20:28)
[2024-07-05] MEDS: Divalproex Sodium ER 500 MG TAB.ER.24H 1000 MG PO (20:28)
[2024-07-05] MEDS: traZODone HCL 50 MG TABLET PO (22:28)
[2024-07-06] MEDS: Levothyroxine Sodium 25 MCG TABLET PO (06:13)
[2024-07-06 07:50] VITALS: BP 109/64; PULSE 90; RESP 16; TEMP 37.3; O2SAT 96
[2024-07-06 08:51] VITALS: BP 124/69; PULSE 85
[2024-07-06] MEDS: mycophenolate mofetiL 250 MG CAPSULE 1000 MG PO ×2 (08:51→20:24)
[2024-07-06] MEDS: Metoprolol Succinate ER 50 MG TAB.ER.24H PO (08:51)
[2024-07-06] MEDS: Lithium Carbonate ER 300 MG TABLET.ER 600 MG PO ×2 (08:51→20:25)
[2024-07-06] MEDS: Fludrocortisone Acetate 0.1 MG TABLET PO (08:51)
[2024-07-06] MEDS: LORazepam 1 MG TABLET PO (15:10)
--- NOTE | 2024-07-06 15:23 | HO.PSYCHPN ---
Subjective Subjective Date of Service: 07/06/24 Reason For Visit: kristie/psychosis Interim History: nml MSE. laughs off [employer] and fear of being murdered on the unit and people being switched. feels she is back in her usual logical frame of mind. some anxiety re being stuck in the hospital forever. looking forward to discharge. re crohns Sz, reports she may have slightly looser bowels than normal, but it is a minor issue and feels it may also be related to stress. not substantial or severe. agreeable to have labs checked tuesday evening. per staff, dep 7 anx 6. engageable. PRN ativan helpful. attending groups. increased anxiety on eves. PRN ativan, atarax. PRN traz for sleep. slept about 7-8 hours. Mental Status Exam Mental Status Exam Narrative: dressed in personal clothes. adequately groomed. less pacing, more slowly than prior. no self-dialogue. able to attend to conversation with MD for at least 10-15 minutes. thoughts linear and logical, no paranoia or delusions expressed. affect flexible, normo-intense, non-labile. mood anxious. no SI/HI/AVH expressed. Diagnostics Vital Signs (24Hr): Vital Signs - 24 hr 07/05/24 20:00 07/06/24 07:50 07/06/24 08:51 Temperature 98.5 F 99.2 F Pulse Rate 99 90 85 Respiratory Rate 18 16 Blood Pressure 111/67 109/64 124/69 Pulse Oximetry 97 96 Oxygen Delivery Method Room Air Room Air BMI result Body Mass Index 23.5 Labs 06/12/24 08:03 06/23/24 20:30 Imaging Radiology Impressions: ITS Impressions Head CT 06/11/24 11:34 IMPRESSION: 1. Normal CT scan of the brain. 2. No intracranial hemorrhage or skull fracture is seen. 3. No evidence of space occupying lesion could be found. 4. The current plain CT scan of the brain shows no diagnostic evidence of acute cerebral infarction. Cervical Spine CT 06/11/24 17:25 IMPRESSION: No acute intracranial hemorrhage. No acute, displaced cervical spine fracture. Head CT 06/11/24 17:25 IMPRESSION: No acute intracranial hemorrhage. No acute, displaced cervical spine fracture. Abdomen X-Ray 06/25/24 16:15 IMPRESSION: Unremarkable examination. Chest X-Ray 06/25/24 16:15 IMPRESSION: Chest willa catheter projects over the cavoatrial junction, unclear if this is MRI compatible. Brain MRI 06/28/24 12:05 IMPRESSION: 1. No evidence of intracranial hemorrhage, acute infarction, mass effect, edema, or extra-axial fluid collection. 2. No white matter abnormalities. 3. 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 There is no surrounding edema. Electronically signed by: Geovanny Cota MD 06/29/2024 03:04 PM EDT Medications Medications Current Medications Acetaminophen (Acetaminophen 325 Mg Tablet) 650 mg PO Q6H PRN PRN Reason: Headache/Pain Mild Scale (1-3) Last Admin: 07/03/24 19:27 Dose: 650 mg Al Hydroxide/Mg Hydroxide (Magnesium Hydrox/Alum Hydrox 30 Ml Oral.Susp) 30 ml PO Q6H PRN PRN Reason: Heartburn/Nausea Last Admin: 07/01/24 09:02 Dose: 30 ml Divalproex Sodium (Divalproex Sodium Er 500 Mg Tab.Er.24h) 1,000 mg PO BEDTIME [facility] Last Admin: 07/05/24 20:28 Dose: 1,000 mg Fludrocortisone Acetate (Fludrocortisone Acetate 0.1 Mg Tablet) 0.1 mg PO DAILY [facility] Last Admin: 07/06/24 08:51 Dose: 0.1 mg Hydroxyzine HCl (Hydroxyzine Hcl 25 Mg Tablet) 25 mg PO Q6H PRN PRN Reason: anxiety Levothyroxine Sodium (Levothyroxine Sodium 25 Mcg Tablet) 25 mcg PO DAILY@0600 [facility] Last Admin: 07/06/24 06:13 Dose: 25 mcg [place] Carbonate ([place] Carbonate Er 300 Mg Tablet.Er) 600 mg PO BID [facility] Last Admin: 07/06/24 08:51 Dose: 600 mg Lorazepam (Lorazepam 1 Mg Tablet) 1 mg PO Q4H PRN PRN Reason: agitation Last Admin: 07/06/24 15:10 Dose: 1 mg Lorazepam (Lorazepam 1 Mg Tablet) 2 mg PO BEDTIME [facility] Last Admin: 07/05/24 20:28 Dose: 2 mg Lorazepam (Lorazepam 1 Mg Tablet) 4 mg PO DAILY PRN PRN Reason: 2 hours prior to studies/procedures Last Admin: 06/28/24 10:02 Dose: 4 mg Magnesium Hydroxide (Milk Of Magnesia 30 Ml Oral.Susp) 30 ml PO DAILY PRN PRN Reason: Constipation Metoprolol Succinate (Metoprolol Succinate Er 50 Mg Tab.Er.24h) 50 mg PO DAILY [facility]; Protocol Last Admin: 07/06/24 08:51 Dose: 50 mg Mycophenolate Mofetil (Mycophenolate Mofetil 250 Mg Capsule) 1,000 mg PO BID [facility] Last Admin: 07/06/24 08:51 Dose: 1,000 mg Nicotine Polacrilex (Nicotine Polacrilex 2 Mg Gum) 4 mg BUCCAL Q2H PRN PRN Reason: Nicotine Cravings Olanzapine (Olanzapine 10 Mg Tablet) 30 mg PO BEDTIME [facility] Last Admin: 07/05/24 20:27 Dose: 30 mg Olanzapine (Olanzapine Odt 10 Mg Tab.Rapdis) 5 mg TRANSLINGU Q4H PRN PRN Reason: agitation Last Admin: 06/24/24 09:29 Dose: 5 mg Trazodone HCl (Trazodone Hcl 50 Mg Tablet) 50 mg PO BEDTIME MRX1 PRN PRN Reason: Insomnia Last Admin: 07/05/24 22:28 Dose: 50 mg Allergies Allergies Allergy/AdvReac Type Severity Reaction Status Date / Time caffeine Allergy Unknown Verified 07/01/24 18:27 mushroom Allergy Hives Verified 07/01/24 18:27 pineapple Allergy Hives Verified 07/01/24 18:27 Assessment & Plan Assessment & Plan (1) Bipolar disorder: Status: Acute Code(s): F31.9 - Bipolar disorder, unspecified (2) Acute psychosis: Status: Acute Code(s): F23 - Brief psychotic disorder Assessment and Plan: 28 years old woman who probably has acute and chronic primary psychotic psychiatric disease. My index of suspicion for a treatable physical reason in the brain including inflammation or infection is very low. An MRI of brain without contrast, if never done before, might be a consideration but I do not have a justification for lumbar puncture. 07/01- possibly more insidous process with psychosis following social functioning decline but could be confusing with ASD spectrum backround- though made it through college- less function for gradschool- psychosis improving with meds! 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 Patient agreeable to moving back to [place] with her parents reportedly. Neuro reconsult with Dr. Omer for question of need for lumbar puncture question of lupus cerebritis or other potential inflammatory cause. 07/03: dramatic improvement from last week. essentially normal MSE, c/o restlessness only. reported h/o same rxn to hydroxyzine, which was DCed today. will observe another day and potentially decrease zyprexa out of concern for akathisia. alternatively, could be residual kristie Sx. 07/04: less restless. some difficulty sleeping. requesting discharge sometime in the next week. willing to stay to work on sleep. transfer not medically indicated, will cancel request. 07/05: pt reports she's feeling back to her regular self and thinks she is ready for discharge. She explains that she was off her medications ([place]) for months due to malfunctioning pill dispenser. She reports all AH and paranoid thoughts are resolved. She says all SI/HI full resolved as well. Pt reports sleeping well and just waiting for discharge. -continue current tx plan 07/06: continues to improve daily. 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 anxious to discharge. discussing discharge next week. labs ordered for tuesday night. Reason for continued inpatient stay Substantial Risk for: rapid decompensation Time Spent With Patient Time: Total time managing care of this patient today __25__ minutes.
[2024-07-06] MEDS: hydrOXYzine HCL 25 MG TABLET PO (16:40)
[2024-07-06 19:55] VITALS: BP 138/80; PULSE 102; RESP 18; TEMP 37.2; O2SAT 97
[2024-07-06] MEDS: Divalproex Sodium ER 500 MG TAB.ER.24H 1000 MG PO (20:24)
[2024-07-06] MEDS: OLANZapine 10 MG TABLET 30 MG PO (20:24)
[2024-07-06] MEDS: LORazepam 1 MG TABLET 2 MG PO (20:24)
[2024-07-06] MEDS: traZODone HCL 50 MG TABLET PO (21:59)
[2024-07-07] MEDS: Levothyroxine Sodium 25 MCG TABLET PO (06:55)
[2024-07-07 08:00] VITALS: BP 126/78; PULSE 86; RESP 18; O2SAT 99
--- NOTE | 2024-07-07 09:05 | HO.PSYCHPN ---
Subjective Subjective Date of Service: 07/07/24 Reason For Visit: kristie/psychosis Interim History: Patient seen. Reports feeling well. Improved. Tolerating medications well. More logical. More engaged. Utilizes PRNs when anxious. agreeable to have labs checked tuesday evening. PRN ativan helpful. attending groups. increased anxiety on eves. PRN ativan, atarax. PRN traz for sleep. slept about 7-8 hours. Review of Systems Review of Systems Could not be done with her . Yes Other (patient unable to answer ROS secondary to an acute psychosis) Constitutional: Reports no additional constitutional complaints Reports dizziness Cardiovascular: Reports no additional cardiovascular complaints Respiratory: Reports no additional respiratory complaints Gastrointestinal: Reports no additional gastrointestinal complaints Reports behavioral changes and Reports dizziness Psychiatric: Reports behavioral changes Mental Status Exam Mental Status Exam Narrative: dressed in personal clothes. adequately groomed. less pacing, more slowly than prior. no self-dialogue. able to attend to conversation with MD for at least 10-15 minutes. thoughts linear and logical, no paranoia or delusions expressed. affect flexible, normo-intense, non-labile. mood anxious. no SI/HI/AVH expressed. Patient Appearance: Unkempt Patient Orientation: Person, Place and Situation Level of Consciousness: Awake Patient Behavior: Guarded and Passive Mood Description: Blunted and Apprehensive Affect Description: Constricted Patient Cognition Impaired: No Ability to Follow Directions: Fair Speech Pattern: Clear (more clear today) and Impoverished Diagnostics Vital Signs (24Hr): Vital Signs - 24 hr 07/06/24 19:55 Temperature 99.0 F Pulse Rate 102 H Respiratory Rate 18 Blood Pressure 138/80 Pulse Oximetry 97 Oxygen Delivery Method Room Air BMI result Body Mass Index 23.5 Labs 06/12/24 08:03 06/23/24 20:30 Imaging Radiology Impressions: ITS Impressions Head CT 06/11/24 11:34 IMPRESSION: 1. Normal CT scan of the brain. 2. No intracranial hemorrhage or skull fracture is seen. 3. No evidence of space occupying lesion could be found. 4. The current plain CT scan of the brain shows no diagnostic evidence of acute cerebral infarction. Cervical Spine CT 06/11/24 17:25 IMPRESSION: No acute intracranial hemorrhage. No acute, displaced cervical spine fracture. Head CT 06/11/24 17:25 IMPRESSION: No acute intracranial hemorrhage. No acute, displaced cervical spine fracture. Abdomen X-Ray 06/25/24 16:15 IMPRESSION: Unremarkable examination. Chest X-Ray 06/25/24 16:15 IMPRESSION: Chest willa catheter projects over the cavoatrial junction, unclear if this is MRI compatible. Brain MRI 06/28/24 12:05 IMPRESSION: 1. No evidence of intracranial hemorrhage, acute infarction, mass effect, edema, or extra-axial fluid collection. 2. No white matter abnormalities. 3. 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 There is no surrounding edema. Electronically signed by: Geovanny Cota MD 06/29/2024 03:04 PM EDT Medications Medications Current Medications Acetaminophen (Acetaminophen 325 Mg Tablet) 650 mg PO Q6H PRN PRN Reason: Headache/Pain Mild Scale (1-3) Last Admin: 07/03/24 19:27 Dose: 650 mg Al Hydroxide/Mg Hydroxide (Magnesium Hydrox/Alum Hydrox 30 Ml Oral.Susp) 30 ml PO Q6H PRN PRN Reason: Heartburn/Nausea Last Admin: 07/01/24 09:02 Dose: 30 ml Divalproex Sodium (Divalproex Sodium Er 500 Mg Tab.Er.24h) 1,000 mg PO BEDTIME [facility] Last Admin: 07/06/24 20:24 Dose: 1,000 mg Fludrocortisone Acetate (Fludrocortisone Acetate 0.1 Mg Tablet) 0.1 mg PO DAILY [facility] Last Admin: 07/06/24 08:51 Dose: 0.1 mg Hydroxyzine HCl (Hydroxyzine Hcl 25 Mg Tablet) 25 mg PO Q6H PRN PRN Reason: anxiety Last Admin: 07/06/24 16:40 Dose: 25 mg Levothyroxine Sodium (Levothyroxine Sodium 25 Mcg Tablet) 25 mcg PO DAILY@0600 [facility] Last Admin: 07/07/24 06:55 Dose: 25 mcg [place]field Carbonate ([place] Carbonate Er 300 Mg Tablet.Er) 600 mg PO BID [facility] Last Admin: 07/06/24 20:25 Dose: 600 mg Lorazepam (Lorazepam 1 Mg Tablet) 1 mg PO Q4H PRN PRN Reason: agitation Last Admin: 07/06/24 15:10 Dose: 1 mg Lorazepam (Lorazepam 1 Mg Tablet) 2 mg PO BEDTIME [facility] Last Admin: 07/06/24 20:24 Dose: 2 mg Lorazepam (Lorazepam 1 Mg Tablet) 4 mg PO DAILY PRN PRN Reason: 2 hours prior to studies/procedures Last Admin: 06/28/24 10:02 Dose: 4 mg Magnesium Hydroxide (Milk Of Magnesia 30 Ml Oral.Susp) 30 ml PO DAILY PRN PRN Reason: Constipation Metoprolol Succinate (Metoprolol Succinate Er 50 Mg Tab.Er.24h) 50 mg PO DAILY [facility]QU[facility]; Protocol Last Admin: 07/06/24 08:51 Dose: 50 mg Mycophenolate Mofetil (Mycophenolate Mofetil 250 Mg Capsule) 1,000 mg PO BID [facility] Last Admin: 07/06/24 20:24 Dose: 1,000 mg Nicotine Polacrilex (Nicotine Polacrilex 2 Mg Gum) 4 mg BUCCAL Q2H PRN PRN Reason: Nicotine Cravings Olanzapine (Olanzapine 10 Mg Tablet) 30 mg PO BEDTIME [facility] Last Admin: 07/06/24 20:24 Dose: 30 mg Olanzapine (Olanzapine Odt 10 Mg Tab.Rapdis) 5 mg TRANSLINGU Q4H PRN PRN Reason: agitation Last Admin: 06/24/24 09:29 Dose: 5 mg Trazodone HCl (Trazodone Hcl 50 Mg Tablet) 50 mg PO BEDTIME MRX1 PRN PRN Reason: Insomnia Last Admin: 07/06/24 21:59 Dose: 50 mg Allergies Allergies Allergy/AdvReac Type Severity Reaction Status Date / Time caffeine Allergy Unknown Verified 07/01/24 18:27 mushroom Allergy Hives Verified 07/01/24 18:27 pineapple Allergy Hives Verified 07/01/24 18:27 Assessment & Plan Assessment & Plan (1) Bipolar disorder: Status: Acute Code(s): F31.9 - Bipolar disorder, unspecified (2) Acute psychosis: Status: Acute Code(s): F23 - Brief psychotic disorder Assessment and Plan: 28 years old woman who probably has acute and chronic primary psychotic psychiatric disease. My index of suspicion for a treatable physical reason in the brain including inflammation or infection is very low. An MRI of brain without contrast, if never done before, might be a consideration but I do not have a justification for lumbar puncture. 07/01- possibly more insidous process with psychosis following social functioning decline but could be confusing with ASD spectrum backround- though made it through college- less function for gradschool- psychosis improving with meds! 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 Patient agreeable to moving back to [place] with her parents reportedly. Neuro reconsult with Dr. Omer for question of need for lumbar puncture question of lupus cerebritis or other potential inflammatory cause. 07/03: dramatic improvement from last week. essentially normal MSE, c/o restlessness only. reported h/o same rxn to hydroxyzine, which was DCed today. will observe another day and potentially decrease zyprexa out of concern for akathisia. alternatively, could be residual kristie Sx. 07/04: less restless. some difficulty sleeping. requesting discharge sometime in the next week. willing to stay to work on sleep. transfer not medically indicated, will cancel request. 07/05: pt reports she's feeling back to her regular self and thinks she is ready for discharge. She explains that she was off her medications (Mansfield) for months due to malfunctioning pill dispenser. She reports all AH and paranoid thoughts are resolved. She says all SI/HI full resolved as well. Pt reports sleeping well and just waiting for discharge. -continue current tx plan 07/06: continues to improve daily. 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 anxious to discharge. discussing discharge next week. labs ordered for tuesday night. 07/07: continue current management and treatment plan. Reason for continued inpatient stay Substantial Risk for: inability to function, rapid decompensation and med/psych decompensation Time Spent With Patient Time: Total time managing care of this patient today ____ minutes.
[2024-07-07] MEDS: mycophenolate mofetiL 250 MG CAPSULE 1000 MG PO ×2 (09:13→20:44)
[2024-07-07] MEDS: Fludrocortisone Acetate 0.1 MG TABLET PO (09:14)
[2024-07-07] MEDS: Metoprolol Succinate ER 50 MG TAB.ER.24H PO (09:14)
[2024-07-07] MEDS: Lithium Carbonate ER 300 MG TABLET.ER 600 MG PO ×2 (09:14→20:44)
[2024-07-07 19:50] VITALS: BP 123/77; PULSE 102; RESP 14; TEMP 35.9; O2SAT 97
[2024-07-07] MEDS: Divalproex Sodium ER 500 MG TAB.ER.24H 1000 MG PO (20:44)
[2024-07-07] MEDS: traZODone HCL 50 MG TABLET PO (20:44)
[2024-07-07] MEDS: LORazepam 1 MG TABLET 2 MG PO (20:44)
[2024-07-07] MEDS: OLANZapine 10 MG TABLET 30 MG PO (20:45)
[2024-07-07] MEDS: hydrOXYzine HCL 25 MG TABLET PO (20:45)
[2024-07-08] MEDS: Levothyroxine Sodium 25 MCG TABLET PO (06:53)
[2024-07-08 07:55] VITALS: BP 111/69; PULSE 84; RESP 14; TEMP 36.9; O2SAT 95
[2024-07-08] MEDS: mycophenolate mofetiL 250 MG CAPSULE 1000 MG PO ×2 (09:17→20:45)
[2024-07-08] MEDS: Fludrocortisone Acetate 0.1 MG TABLET PO (09:17)
[2024-07-08] MEDS: Lithium Carbonate ER 300 MG TABLET.ER 600 MG PO ×2 (09:17→20:45)
[2024-07-08] MEDS: Metoprolol Succinate ER 50 MG TAB.ER.24H PO (09:17)
--- NOTE | 2024-07-08 11:38 | P.PNPSI_ITS ---
Subjective Subjective Date of Service: 07/08/24 Reason For Visit: kristie/psychosis Interim History: Patient seen. Reports feeling unchanged from yesterday. Maintaining improvement in her symptoms. Tolerating medications well. More logical. More engaged. More visible. Utilizes PRNs when anxious. Labs Tuesday evening. PRN ativan helpful. attending groups. PRN ativan, atarax in the evening. Sleep is good. Review of Systems Review of Systems Could not be done with her . Yes Other (patient unable to answer ROS secondary to an acute psychosis) Constitutional: Reports no additional constitutional complaints Reports dizziness Cardiovascular: Reports no additional cardiovascular complaints Respiratory: Reports no additional respiratory complaints Gastrointestinal: Reports no additional gastrointestinal complaints Reports behavioral changes and Reports dizziness Psychiatric: Reports behavioral changes Mental Status Exam Mental Status Exam Narrative: dressed in personal clothes. adequately groomed. less pacing, more slowly than prior. no self-dialogue. able to attend to conversation with MD for at least 10-15 minutes. thoughts linear and logical, no paranoia or delusions expressed. affect flexible, normo-intense, non-labile. mood anxious. no SI/HI/AVH expressed. Patient Appearance: Unkempt Patient Orientation: Person, Place and Situation Level of Consciousness: Awake Patient Behavior: Guarded and Passive Mood Description: Blunted and Apprehensive Affect Description: Constricted Patient Cognition Impaired: No Ability to Follow Directions: Fair Speech Pattern: Clear (more clear today) and Impoverished Diagnostics Vital Signs (24Hr): Vital Signs - 24 hr 07/07/24 19:50 07/08/24 07:55 Temperature 96.7 F L 98.5 F Pulse Rate 102 H 84 Respiratory Rate 14 14 Blood Pressure 123/77 111/69 Pulse Oximetry 97 95 Oxygen Delivery Method Room Air Room Air BMI result Body Mass Index 23.5 Labs 06/12/24 08:03 06/23/24 20:30 Imaging Radiology Impressions: ITS Impressions Head CT 06/11/24 11:34 IMPRESSION: 1. Normal CT scan of the brain. 2. No intracranial hemorrhage or skull fracture is seen. 3. No evidence of space occupying lesion could be found. 4. The current plain CT scan of the brain shows no diagnostic evidence of acute cerebral infarction. Cervical Spine CT 06/11/24 17:25 IMPRESSION: No acute intracranial hemorrhage. No acute, displaced cervical spine fracture. Head CT 06/11/24 17:25 IMPRESSION: No acute intracranial hemorrhage. No acute, displaced cervical spine fracture. Abdomen X-Ray 06/25/24 16:15 IMPRESSION: Unremarkable examination. Chest X-Ray 06/25/24 16:15 IMPRESSION: Chest willa catheter projects over the cavoatrial junction, unclear if this is MRI compatible. Brain MRI 06/28/24 12:05 IMPRESSION: 1. No evidence of intracranial hemorrhage, acute infarction, mass effect, edema, or extra-axial fluid collection. 2. No white matter abnormalities. 3. 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 There is no surrounding edema. Electronically signed by: Geovanny Cota MD 06/29/2024 03:04 PM EDT Medications Medications Current Medications Acetaminophen (Acetaminophen 325 Mg Tablet) 650 mg PO Q6H PRN PRN Reason: Headache/Pain Mild Scale (1-3) Last Admin: 07/03/24 19:27 Dose: 650 mg Al Hydroxide/Mg Hydroxide (Magnesium Hydrox/Alum Hydrox 30 Ml Oral.Susp) 30 ml PO Q6H PRN PRN Reason: Heartburn/Nausea Last Admin: 07/01/24 09:02 Dose: 30 ml Divalproex Sodium (Divalproex Sodium Er 500 Mg Tab.Er.24h) 1,000 mg PO BEDTIME [facility] Last Admin: 07/07/24 20:44 Dose: 1,000 mg Fludrocortisone Acetate (Fludrocortisone Acetate 0.1 Mg Tablet) 0.1 mg PO DAILY [facility] Last Admin: 07/08/24 09:17 Dose: 0.1 mg Hydroxyzine HCl (Hydroxyzine Hcl 25 Mg Tablet) 25 mg PO Q6H PRN PRN Reason: anxiety Last Admin: 07/07/24 20:45 Dose: 25 mg Levothyroxine Sodium (Levothyroxine Sodium 25 Mcg Tablet) 25 mcg PO DAILY@0600 [facility] Last Admin: 07/08/24 06:53 Dose: 25 mcg Crivitz Carbonate (Crivitz Carbonate Er 300 Mg Tablet.Er) 600 mg PO BID [facility] Last Admin: 07/08/24 09:17 Dose: 600 mg Lorazepam (Lorazepam 1 Mg Tablet) 1 mg PO Q4H PRN PRN Reason: agitation Last Admin: 07/06/24 15:10 Dose: 1 mg Lorazepam (Lorazepam 1 Mg Tablet) 2 mg PO BEDTIME [facility] Last Admin: 07/07/24 20:44 Dose: 2 mg Lorazepam (Lorazepam 1 Mg Tablet) 4 mg PO DAILY PRN PRN Reason: 2 hours prior to studies/procedures Last Admin: 06/28/24 10:02 Dose: 4 mg Magnesium Hydroxide (Milk Of Magnesia 30 Ml Oral.Susp) 30 ml PO DAILY PRN PRN Reason: Constipation Metoprolol Succinate (Metoprolol Succinate Er 50 Mg Tab.Er.24h) 50 mg PO DAILY [facility]; Protocol Last Admin: 07/08/24 09:17 Dose: 50 mg Mycophenolate Mofetil (Mycophenolate Mofetil 250 Mg Capsule) 1,000 mg PO BID [facility] Last Admin: 07/08/24 09:17 Dose: 1,000 mg Nicotine Polacrilex (Nicotine Polacrilex 2 Mg Gum) 4 mg BUCCAL Q2H PRN PRN Reason: Nicotine Cravings Olanzapine (Olanzapine 10 Mg Tablet) 30 mg PO BEDTIME [facility] Last Admin: 07/07/24 20:45 Dose: 30 mg Olanzapine (Olanzapine Odt 10 Mg Tab.Rapdis) 5 mg TRANSLINGU Q4H PRN PRN Reason: agitation Last Admin: 06/24/24 09:29 Dose: 5 mg Trazodone HCl (Trazodone Hcl 50 Mg Tablet) 50 mg PO BEDTIME MRX1 PRN PRN Reason: Insomnia Last Admin: 07/07/24 20:44 Dose: 50 mg Allergies Allergies Allergy/AdvReac Type Severity Reaction Status Date / Time caffeine Allergy Unknown Verified 07/01/24 18:27 mushroom Allergy Hives Verified 07/01/24 18:27 pineapple Allergy Hives Verified 07/01/24 18:27 Assessment & Plan Assessment & Plan (1) Bipolar disorder: Status: Acute Code(s): F31.9 - Bipolar disorder, unspecified (2) Acute psychosis: Status: Acute Code(s): F23 - Brief psychotic disorder Assessment and Plan: 28 years old woman who probably has acute and chronic primary psychotic psychiatric disease. My index of suspicion for a treatable physical reason in the brain including inflammation or infection is very low. An MRI of brain without contrast, if never done before, might be a consideration but I do not have a justification for lumbar puncture. 07/01- possibly more insidous process with psychosis following social functioning decline but could be confusing with ASD spectrum backround- though made it through college- less function for gradschool- psychosis improving with meds! 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 Patient agreeable to moving back to [place] with her parents reportedly. Neuro reconsult with Dr. Omer for question of need for lumbar puncture question of lupus cerebritis or other potential inflammatory cause. 07/03: dramatic improvement from last week. essentially normal MSE, c/o restlessness only. reported h/o same rxn to hydroxyzine, which was DCed today. will observe another day and potentially decrease zyprexa out of concern for akathisia. alternatively, could be residual kristie Sx. 07/04: less restless. some difficulty sleeping. requesting discharge sometime in the next week. willing to stay to work on sleep. transfer not medically indicated, will cancel request. 07/05: pt reports she's feeling back to her regular self and thinks she is ready for discharge. She explains that she was off her medications (Crivitz) for months due to malfunctioning pill dispenser. She reports all AH and paranoid thoughts are resolved. She says all SI/HI full resolved as well. Pt reports sleeping well and just waiting for discharge. -continue current tx plan 07/06: continues to improve daily. 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 anxious to discharge. discussing discharge next week. labs ordered for tuesday night. 07/07: continue current management and treatment plan. 07/08: Continue current management and treatment plan. Consider Klonopin as a longer acting BZD Reason for continued inpatient stay Substantial Risk for: inability to function, rapid decompensation and med/psych decompensation Time Spent With Patient Time: Total time managing care of this patient today ____ minutes.
[2024-07-08] MEDS: hydrOXYzine HCL 25 MG TABLET PO (17:14)
[2024-07-08] MEDS: LORazepam 1 MG TABLET PO (17:18)
[2024-07-08 19:20] VITALS: BP 115/66; PULSE 98; RESP 16; TEMP 36.8; O2SAT 96
[2024-07-08] MEDS: LORazepam 1 MG TABLET 2 MG PO (20:44)
[2024-07-08] MEDS: Divalproex Sodium ER 500 MG TAB.ER.24H 1000 MG PO (20:44)
[2024-07-08] MEDS: OLANZapine 10 MG TABLET 30 MG PO (20:44)
[2024-07-08] MEDS: traZODone HCL 50 MG TABLET PO (21:26)
[2024-07-09] MEDS: Levothyroxine Sodium 25 MCG TABLET PO (06:38)
[2024-07-09 08:00] VITALS: BP 109/64; PULSE 79; RESP 16; TEMP 36.8; O2SAT 98
[2024-07-09] MEDS: Fludrocortisone Acetate 0.1 MG TABLET PO (08:45)
[2024-07-09] MEDS: Metoprolol Succinate ER 50 MG TAB.ER.24H PO (08:45)
[2024-07-09] MEDS: Lithium Carbonate ER 300 MG TABLET.ER 600 MG PO ×2 (08:46→20:35)
[2024-07-09] MEDS: mycophenolate mofetiL 250 MG CAPSULE 1000 MG PO ×2 (08:46→20:35)
--- NOTE | 2024-07-09 11:05 | HO.PSYCHPN ---
Subjective Subjective Date of Service: 07/09/24 Reason For Visit: kristie/psychosis Interim History: Patient seen. Remains anxious in the afternoon. Paces throughout the day. Anxious. PRN ativan helpful but very anxious when it wears off. Discussed doing Klonopin as standing dose and try not to take Ativan to assess if it's helping her anxiety more. Uses it once a day in the afternoon around 5 fairly consistently. Reports feeling unchanged from yesterday. Maintaining improvement in her psychotic symptoms. Tolerating medications well. More logical. More engaged. More visible. Labs Tuesday evening. attending groups. PRN ativan, atarax in the evening. Sleep is good. Review of Systems Review of Systems Could not be done with her . Yes Other (patient unable to answer ROS secondary to an acute psychosis) Constitutional: Reports no additional constitutional complaints Reports dizziness Cardiovascular: Reports no additional cardiovascular complaints Respiratory: Reports no additional respiratory complaints Gastrointestinal: Reports no additional gastrointestinal complaints Reports behavioral changes and Reports dizziness Psychiatric: Reports behavioral changes Mental Status Exam Mental Status Exam Narrative: dressed in personal clothes. adequately groomed. less pacing, more slowly than prior. no self-dialogue. able to attend to conversation with MD for at least 10-15 minutes. thoughts linear and logical, no paranoia or delusions expressed. affect flexible, normo-intense, non-labile. mood anxious. no SI/HI/AVH expressed. Patient Appearance: Unkempt Patient Orientation: Person, Place and Situation Level of Consciousness: Awake Patient Behavior: Guarded and Passive Mood Description: Blunted and Apprehensive Affect Description: Constricted Patient Cognition Impaired: No Ability to Follow Directions: Fair Speech Pattern: Clear (more clear today) and Impoverished Diagnostics Vital Signs (24Hr): Vital Signs - 24 hr 07/08/24 19:20 07/09/24 08:00 Temperature 98.2 F 98.3 F Pulse Rate 98 79 Respiratory Rate 16 16 Blood Pressure 115/66 109/64 Pulse Oximetry 96 98 Oxygen Delivery Method Room Air Room Air BMI result Body Mass Index 23.5 Labs 06/12/24 08:03 06/23/24 20:30 Imaging Radiology Impressions: ITS Impressions Head CT 06/11/24 11:34 IMPRESSION: 1. Normal CT scan of the brain. 2. No intracranial hemorrhage or skull fracture is seen. 3. No evidence of space occupying lesion could be found. 4. The current plain CT scan of the brain shows no diagnostic evidence of acute cerebral infarction. Cervical Spine CT 06/11/24 17:25 IMPRESSION: No acute intracranial hemorrhage. No acute, displaced cervical spine fracture. Head CT 06/11/24 17:25 IMPRESSION: No acute intracranial hemorrhage. No acute, displaced cervical spine fracture. Abdomen X-Ray 06/25/24 16:15 IMPRESSION: Unremarkable examination. Chest X-Ray 06/25/24 16:15 IMPRESSION: Chest willa catheter projects over the cavoatrial junction, unclear if this is MRI compatible. Brain MRI 06/28/24 12:05 IMPRESSION: 1. No evidence of intracranial hemorrhage, acute infarction, mass effect, edema, or extra-axial fluid collection. 2. No white matter abnormalities. 3. 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 There is no surrounding edema. Electronically signed by: Geovanny Cota MD 06/29/2024 03:04 PM EDT Medications Medications Current Medications Acetaminophen (Acetaminophen 325 Mg Tablet) 650 mg PO Q6H PRN PRN Reason: Headache/Pain Mild Scale (1-3) Last Admin: 07/03/24 19:27 Dose: 650 mg Al Hydroxide/Mg Hydroxide (Magnesium Hydrox/Alum Hydrox 30 Ml Oral.Susp) 30 ml PO Q6H PRN PRN Reason: Heartburn/Nausea Last Admin: 07/01/24 09:02 Dose: 30 ml Divalproex Sodium (Divalproex Sodium Er 500 Mg Tab.Er.24h) 1,000 mg PO BEDTIME [facility] Last Admin: 07/08/24 20:44 Dose: 1,000 mg Fludrocortisone Acetate (Fludrocortisone Acetate 0.1 Mg Tablet) 0.1 mg PO DAILY [facility] Last Admin: 07/09/24 08:45 Dose: 0.1 mg Hydroxyzine HCl (Hydroxyzine Hcl 25 Mg Tablet) 25 mg PO Q6H PRN PRN Reason: anxiety Last Admin: 07/08/24 17:14 Dose: 25 mg Levothyroxine Sodium (Levothyroxine Sodium 25 Mcg Tablet) 25 mcg PO DAILY@0600 [facility] Last Admin: 07/09/24 06:38 Dose: 25 mcg [place] Carbonate ([place] Carbonate Er 300 Mg Tablet.Er) 600 mg PO BID [facility] Last Admin: 07/09/24 08:46 Dose: 600 mg Lorazepam (Lorazepam 1 Mg Tablet) 2 mg PO BEDTIME [facility] Last Admin: 07/08/24 20:44 Dose: 2 mg Lorazepam (Lorazepam 1 Mg Tablet) 4 mg PO DAILY PRN PRN Reason: 2 hours prior to studies/procedures Last Admin: 06/28/24 10:02 Dose: 4 mg Magnesium Hydroxide (Milk Of Magnesia 30 Ml Oral.Susp) 30 ml PO DAILY PRN PRN Reason: Constipation Metoprolol Succinate (Metoprolol Succinate Er 50 Mg Tab.Er.24h) 50 mg PO DAILY [facility]; Protocol Last Admin: 07/09/24 08:45 Dose: 50 mg Mycophenolate Mofetil (Mycophenolate Mofetil 250 Mg Capsule) 1,000 mg PO BID [facility] Last Admin: 07/09/24 08:46 Dose: 1,000 mg Nicotine Polacrilex (Nicotine Polacrilex 2 Mg Gum) 4 mg BUCCAL Q2H PRN PRN Reason: Nicotine Cravings Olanzapine (Olanzapine 10 Mg Tablet) 30 mg PO BEDTIME [facility] Last Admin: 07/08/24 20:44 Dose: 30 mg Olanzapine (Olanzapine Odt 10 Mg Tab.Rapdis) 5 mg TRANSLINGU Q4H PRN PRN Reason: agitation Last Admin: 06/24/24 09:29 Dose: 5 mg Trazodone HCl (Trazodone Hcl 50 Mg Tablet) 50 mg PO BEDTIME MRX1 PRN PRN Reason: Insomnia Last Admin: 07/08/24 21:26 Dose: 50 mg Allergies Allergies Allergy/AdvReac Type Severity Reaction Status Date / Time caffeine Allergy Unknown Verified 07/01/24 18:27 mushroom Allergy Hives Verified 07/01/24 18:27 pineapple Allergy Hives Verified 07/01/24 18:27 Assessment & Plan Assessment & Plan (1) Bipolar disorder: Status: Acute Code(s): F31.9 - Bipolar disorder, unspecified (2) Acute psychosis: Status: Acute Code(s): F23 - Brief psychotic disorder Assessment and Plan: 28 years old woman who probably has acute and chronic primary psychotic psychiatric disease. My index of suspicion for a treatable physical reason in the brain including inflammation or infection is very low. An MRI of brain without contrast, if never done before, might be a consideration but I do not have a justification for lumbar puncture. 07/01- possibly more insidous process with psychosis following social functioning decline but could be confusing with ASD spectrum backround- though made it through college- less function for gradschool- psychosis improving with meds! 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 Patient agreeable to moving back to [place] with her parents reportedly. Neuro reconsult with Dr. Omer for question of need for lumbar puncture question of lupus cerebritis or other potential inflammatory cause. 07/03: dramatic improvement from last week. essentially normal MSE, c/o restlessness only. reported h/o same rxn to hydroxyzine, which was DCed today. will observe another day and potentially decrease zyprexa out of concern for akathisia. alternatively, could be residual kristie Sx. 07/04: less restless. some difficulty sleeping. requesting discharge sometime in the next week. willing to stay to work on sleep. transfer not medically indicated, will cancel request. 07/05: pt reports she's feeling back to her regular self and thinks she is ready for discharge. She explains that she was off her medications ([place]) for months due to malfunctioning pill dispenser. She reports all AH and paranoid thoughts are resolved. She says all SI/HI full resolved as well. Pt reports sleeping well and just waiting for discharge. -continue current tx plan 07/06: continues to improve daily. 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 anxious to discharge. discussing discharge next week. labs ordered for tuesday night. 07/07: continue current management and treatment plan. 07/08: Continue current management and treatment plan. Consider Klonopin as a longer acting BZD 07/09: Start Klonopin 0.5 mg BID. AM and 3 PM. Asked patient to not use PRN Ativan in the afternoon to see if the Klonopin can provide relief but would keep as PRN in case. Reason for continued inpatient stay Substantial Risk for: inability to function and rapid decompensation Time Spent With Patient Time: Total time managing care of this patient today ____ minutes.
[2024-07-09 20:00] VITALS: BP 127/78; PULSE 98; RESP 16; TEMP 36.6; O2SAT 96
[2024-07-09] MEDS: traZODone HCL 50 MG TABLET PO (20:35)
[2024-07-09] MEDS: OLANZapine 10 MG TABLET 30 MG PO (20:35)
[2024-07-09] MEDS: LORazepam 1 MG TABLET 2 MG PO (20:38)
[2024-07-09] MEDS: Divalproex Sodium ER 500 MG TAB.ER.24H 1000 MG PO (20:38)
[2024-07-09 20:41] LABS: MANUAL DIFF FLAG NO
[2024-07-09 20:46] LABS: Basophils Absolute Auto 0.1 X10*3/uL (0.0-0.2); Basophils Percent Auto 0.5 % (0-2); Eosinophils Absolute Auto 0.3 X10*3/uL (0.0-0.4); Eosinophils Percent Auto 2.6 % (0-4); Hematocrit 36.1 % (37.0-47.0); Hemoglobin 12.5 g/dl (12.0-16.0); Imm Gran Abs Auto 0.06 X10*3/uL (0.00-0.03); Imm Gran Pct Auto 0.6 % (0.0-0.4); Lymphocytes Absolute Auto 2.8 X10*3/uL (1.2-4.9); Lymphocytes Percent Auto 26.1 % (20-40); Mean Corpuscular HGB Conc 34.6 g/dl (31.0-35.0); Mean Corpuscular Hemoglobin 31.5 pg (27.0-33.0); Mean Corpuscular Volume 90.9 fL (80.0-98.0); Mean Platelet Volume 10.4 fL (9.4-12.3); Monocytes Percent Auto 9.1 % (2-11); Neutrophils Absolute Auto 6.6 x10*3/uL (2.0-8.3); Neutrophils Percent Auto 61.1 % (45-73); Platelet Count 307 X10*3/uL (160-400); Red Blood Count 3.97 X10*6/uL (4.20-5.50); Red Cell Distribution Width 12.5 % (11.0-16.0); White Blood Count 10.8 X10*3/uL (4.8-10.8)
[2024-07-09 20:57] LABS: Lithium 0.54 mmol/L (0.60-1.20); Valproate 27.4 mcg/mL (50.0-100.0)
[2024-07-09 21:06] LABS: Alanine Aminotransferase 44 U/L (0-31); Albumin Level 3.9 g/dL (3.5-5.0); Alkaline Phosphatase 106 U/L (39-117); Anion Gap 15 (12-20); Aspartate Amino Transferase 23 U/L (5-31); Bilirubin Direct < 0.2 mg/dL (0.0-0.5); Bilirubin Total 0.2 mg/dL (0.0-1.0); Blood Urea Nitrogen 14 mg/dL (9-16); Calcium 9.5 mg/dL (8.4-10.2); Carbon Dioxide 25 mmol/L (22-29); Chloride 106 mmol/L (96-108); Creatinine Clr Calc Pharmacy 88.4; Estimated Glomerular Filt Rate > 60; Glucose Random 130 mg/dL (60-115); Potassium 4.6 mmol/L (3.3-5.1); Sodium 141 mmol/L (135-145)
[2024-07-09 22:08] LABS: Ammonia 41 umol/L (13-55)
[2024-07-10] MEDS: traZODone HCL 50 MG TABLET PO ×2 (00:26→21:35)
[2024-07-10] MEDS: hydrOXYzine HCL 25 MG TABLET PO (00:26)
[2024-07-10] MEDS: Levothyroxine Sodium 25 MCG TABLET PO (06:26)
[2024-07-10 08:52] VITALS: BP 117/59; PULSE 86; RESP 16; TEMP 36.9; O2SAT 98
[2024-07-10] MEDS: Lithium Carbonate ER 300 MG TABLET.ER 600 MG PO ×2 (08:52→21:34)
[2024-07-10 08:53] VITALS: BP 117/59; PULSE 86
[2024-07-10] MEDS: Fludrocortisone Acetate 0.1 MG TABLET PO (08:53)
[2024-07-10] MEDS: mycophenolate mofetiL 250 MG CAPSULE 1000 MG PO ×2 (08:53→21:35)
[2024-07-10] MEDS: Metoprolol Succinate ER 50 MG TAB.ER.24H PO (08:53)
[2024-07-10 20:00] VITALS: BP 126/76; PULSE 92; RESP 16; TEMP 37.3; O2SAT 98
[2024-07-10 21:35] LABS: Lithium 0.48 mmol/L (0.60-1.20)
[2024-07-10] MEDS: OLANZapine 10 MG TABLET 30 MG PO (21:35)
[2024-07-10] MEDS: Divalproex Sodium ER 500 MG TAB.ER.24H 1000 MG PO (21:35)
[2024-07-10] MEDS: LORazepam 1 MG TABLET PO (21:35)
[2024-07-10 21:40] LABS: Valproate 27.2 mcg/mL (50.0-100.0)
--- NOTE | 2024-07-10 21:58 | P.DS_ITS ---
DS: Providers Provider Date of Service: 07/10/24 Date of admission: 06/11/24 12:51 Primary care physician: Unknown Physician Consults: 06/13/24 17:37 Consult to Hospitalist Routine Comment: Consulting Provider: Hospitalist Reason For Exam: review mgmt of POTS, recommend any changes 06/13/24 17:38 Consult to Rheumatology Routine Consulting Provider: [facility] Rheumatology Service Reason for consultation: review mgmt of various auto-immune illnesses Has provider been notified: No 06/14/24 17:34 Consult to Neurology Routine Consulting Provider: [facility] Reason for consultation: rheum rec consult re need for LP or MRI brain Has provider been notified: No 06/28/24 19:10 Consult to Hospitalist Routine Comment: Sx present since 06/27 per team report Consulting Provider: Hospitalist Reason For Exam: R side leaning/listing-new sx, back pain. 07/02/24 12:45 Consult to Neurology Routine Consulting Provider: [facility] Reason for consultation: dr omer reconsult ? LP suggested Has provider been notified: No DS: Diagnosis Discharge Diagnosis (1) Bipolar disorder: Status: Acute (2) Acute psychosis: Status: Resolved (3) SLE (systemic lupus erythematosus related syndrome): Status: Acute (4) Autoimmune hepatitis: Status: Acute (5) Lawrence thyroiditis: Status: Acute (6) Crohn disease: Status: Acute (7) POTS (postural orthostatic tachycardia syndrome): Status: Acute DS: Medications Discharge Medications Home Medications: Previous Rx's ?Medication ?Instructions ?Recorded clonazepam 0.5 mg tablet 0.5 mg PO BID severe anxiety 30 07/10/24 days #60 tabs divalproex 500 mg tablet,extended 1,000 mg (2 x 500 mg) PO BEDTIME 07/10/24 release 24 hr 30 days #60 tabs fludrocortisone 0.1 mg tablet 0.1 mg PO DAILY 30 days #30 tabs 07/10/24 hydroxyzine HCl 25 mg tablet 25 mg PO BID PRN anxiety 30 days 07/10/24 #60 tabs levothyroxine 25 mcg tablet 25 mcg PO DAILY@0600 30 days #30 07/10/24 tabs lithium carbonate 300 mg 600 mg (2 x 300 mg) PO BID 30 days 07/10/24 tablet,extended release #120 tabs metoprolol succinate 50 mg 50 mg PO DAILY 30 days #30 tabs 07/10/24 tablet,extended release 24 hr mycophenolate mofetil 250 mg 1,000 mg (4 x 250 mg) PO BID 07/10/24 capsule days #240 caps olanzapine 10 mg tablet 30 mg (3 x 10 mg) PO BEDTIME 07/10/24 days #90 tabs trazodone 50 mg tablet 50 mg PO BEDTIME PRN Insomnia 07/10/24 days #30 tabs Mental Status Exam Mental Status Exam Narrative: dressed in personal clothes. adequately groomed. less pacing, more slowly than prior. no self-dialogue. able to attend to conversation with MD for at least 10-15 minutes. thoughts linear and logical, no paranoia or delusions expressed. affect flexible, normo-intense, non-labile. mood anxious. no SI/HI/AVH. Data Data Completed and Pending Completed studies during hospitalization [Text1]: 07/09/24 07/10/24 20:35 21:13 WBC 10.8 RBC 3.97 L D Hgb 12.5 Hct 36.1 L MCV 90.9 MCH 31.5 MCHC 34.6 RDW 12.5 Plt Count 307 MPV 10.4 Immature Gran % (Auto) 0.6 H Neut % (Auto) 61.1 Lymph % (Auto) 26.1 Cooke % (Auto) 9.1 Eos % (Auto) 2.6 Baso % (Auto) 0.5 Lymph # (Auto) 2.8 Cooke # (Auto) 1.0 Eos # (Auto) 0.3 Baso # (Auto) 0.1 Abs Immat Gran (auto) 0.06 H Absolute Neuts (auto) 6.6 Absolute Nucleated RBC 0.000 Nucleated RBC % (auto) 0.0 Sodium 141 Potassium 4.6 Chloride 106 Carbon Dioxide 25 Anion Gap 15 BUN 14 Creatinine 0.66 Estim Creat Clear Calc 88.4 Estimated GFR > 60 Random Glucose 130 H Calcium 9.5 Total Bilirubin 0.2 Direct Bilirubin < 0.2 AST 23 ALT 44 H Alkaline Phosphatase 106 Ammonia 41 Total Protein 7.0 Albumin 3.9 Valproic Acid 27.4 L 27.2 L Nadine 0.54 L 0.48 L Imaging Diagnostic Imaging Impressions Head CT 06/11/24 11:34 IMPRESSION: 1. Normal CT scan of the brain. 2. No intracranial hemorrhage or skull fracture is seen. 3. No evidence of space occupying lesion could be found. 4. The current plain CT scan of the brain shows no diagnostic evidence of acute cerebral infarction. Cervical Spine CT 06/11/24 17:25 IMPRESSION: No acute intracranial hemorrhage. No acute, displaced cervical spine fracture. Head CT 06/11/24 17:25 IMPRESSION: No acute intracranial hemorrhage. No acute, displaced cervical spine fracture. Abdomen X-Ray 06/25/24 16:15 IMPRESSION: Unremarkable examination. Chest X-Ray 06/25/24 16:15 IMPRESSION: Chest willa catheter projects over the cavoatrial junction, unclear if this is MRI compatible. Brain MRI 06/28/24 12:05 IMPRESSION: 1. No evidence of intracranial hemorrhage, acute infarction, mass effect, edema, or extra-axial fluid collection. 2. No white matter abnormalities. 3. 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 There is no surrounding edema. Electronically signed by: Geovanny Cota MD 06/29/2024 03:04 PM EDT DS: Summary Hospital Course Hospital Course: per 06/11 admission note: HPI Narrative: pt was BIBA at the request of her parents, who had come out to visit her from [place] and found her in a concerning mental status, described as disoriented. per parents, pt has substantial psych Hx and was suspected to have stopped taking her medications. mother reports decline over the past 8 months including weight loss of 40 pounds, which coincides with ASD Dx pt received. pt has steadily withdrawn from family and friends, per mother. on interview with CARE team, pt was agitated, labile, paranoid, pressured, and disorganized. she was apparently extemporizing regarding a global conspiracy involving [place] [employer] in which they swap people out, a la Capgras Syndrome. she also believes she has a brain tumor. poor ADLs noted, not having bathed in about one month. per mother, there is no precedent for this presentation. parents had come to pack her up and take her back home with them. parents identify autism Dx leading to demoralization and cessation of medication compliance, leading to inability to manage studies, leading to withdrawal from degree program, leading to further deterioration in mental status to the present. interview with on unit limited due to pt's inability to attend. pt was generally disorganized spontaneously but was able to answer some questions as per MSE. sample: my dad and sister are missing. i thought your father was here 5 minutes ago? my other father. no, he's not missing. but my sister is. none of this is real. another sample: what medications were you taking? over a million years. pt appeared to agree to plan to restart prior regimen, asked for something to help her go to sleep and started crying, saying she was feeling very anxious. Past Psychiatric History: Dx Hx: Bipolar Disorder, Autism hosps: h/o. first at 16 yo and MRE around 2019. SA: none SIB: none reported HIB: none reported outpt: h/o, extensive. starting in 8th grade with Dr. Mireles ([phone]). h/o therapy, most recently in [place] 8-9 months ago. Medical Evaluation Reviewed: Yes PMFSH Narrative: per mother: 5 auto-immune diseases Family History: father - bipolar disorder Social History: born and raised by both parents in [place], [place]. 1 sister who is 2 years younger. has bachelor's and masters' degrees, was enrolled in [employer] program until withdrawing recently. lives alone in a house in [place], [place]. never , no children. 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 [facility] have asked pt to leave. parents have come to help her move back to their home in [place]. Substance History: none Trauma History: reported h/o other pts entering her room in the night during prior hospitalization, one episode of another patient getting into bed with her. Precis: 06/11: restart previous med regimen, assuming it is reasonable and if collateral bears out that it was effective. zyprexa and ativan for now. 06/12: met with parents, got meds list from pharmacy. verified father has bipolar disorder. 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 will restart medical regimen as well as psychiatric. kristie/psychosis may be as inherited from father or possibly immune-mediated. will address both potential etiologies simultaneously. 06/13: more subdued and slowed today than yesterday. poor sleep - increase HS zyprexa to 10 mg. 40 min call with family. check lyme titer. consult rheum, GI, hospitalist. continue current mgmt otherwise and observe for improvement. [facility] contacted, reported pt is no longer in their practice and hasn't been seen for more than a year. 06/14: hospitalist j luis re POTS appreciated. return metoprolol to outpt dosing of 50 mg daily as pt HR 99. awaiting GI eval. case discussed with rheum, Dr. Carmona, who is not available for full consult but did advise. will order labs as instructed and request neuro consult as well for opinion re LP and brain MRI. pt does continue more subdued and did actually sleep 8-9 hours last night, which is a striking improvement. 06/15: seen by neuro, low index of suspicion for central inflammatory process. rec MRI but no LP for now. ESR/CRP WNL today, other labs pending. increase HS zyprexa to 15 mg. no change in presentation from yesterday. 06/16 we are ordering blood work with lithium level for tomorrow. We are going to keep on Zyprexa 15 and reassess tomorrow. 06/17 lithium level in therapeutic level. BMP within normal limits. The patient is grossly disorganized still psychotic. 06/18: no improvement over w/e. lithium 0.83. add VPA 1000 QHS. increase HS zyprexa to 30 mg, decrease PRNs to 5 mg each. add ativan 2 mg QHS. sleeping less than 4 hours per night. order brain MRI, unclear if pt will be able to tolerate study. 06/19: hold brain MRI due to need to be still for 30 minutes. slept 2 hours overnight but then from 1000 through afternoon. appeared to be pacing more slowly and less voluble today. per rheum review of chart, labs not suggestive of active SLE. 06/20: remains slower than prior, observed in milieu not self-dialoguing for the first time by this check writer. slept 7 hours overnight. labs continue to not support active auto-immune illness. remains with paranoia about being murdered and delusions re swapping. continue current mgmt. 06/21: labs continue to not support active auto-immune disease. gradual daily improvements continue. continue current mgmt. 06/22: labs continue to not support active auto-immune disease. gradual daily improvements continue. continue current mgmt. 06/23: continues sleeping more, slower pacing and speech. today questioned delusion that she has a brain tumor. 06/24: lithium and VPA therapeutic. ammonia slightly elevated. pursue MRI and GI consult tomorrow. improved but not well. met with parents for extended period. 06/25: capgras delusions weakened from people HAVE BEEN replaced to people MIGHT GET replaced. continue current mgmt. 06/26: mtg with parents. asking for immediate transfer, concerned auto-immune etiologies not being adequately worked up. expressing desire that no further investigations be conducted at [facility]. has port in place for remicaid infusions, unclear if MRI-safe; will hold on MRI for now. continues to demonstrate gradual improvement, able to attend to conversation with mother and this check writer for about 5 minutes. will contact OSH for transfer per family's wishes. 06/27: referral to [facility] begun. case D/W joseph, plan for MRI and LP will proceed. mother has reversed her objection to further w/u here. presentation as per yesterday. continue current mgmt otherwise. 06/28: MRI completed today after 5 mg total ativan, 4 mg PO and 1 mg IM. information exchange with pt's mother. continue current mgmt. 06/29: MRI showing only cavernoma in left posterior putamen (this is a previously observed finding per pt's mother). continues to present improved. referral information submitted to [facility]. consult with neuro here re LP. tylenol for back pain, does not appear to be a dystonic rxn. continue current mgmt otherwise. 06/30- CTP reviewed no tumor with pt- wonder if this is more prodromal sys of psychotic disorder- 07/01- possibly more insidous process with psychosis following social functioning decline but could be confusing with ASD spectrum backround- though made it through college- less function for gradschool- psychosis improving with meds! CTP 07/02: Patient seems to be responding to the combination of olanzapine Depakote and lithium. Patient agreeable to moving back to [place] with her parents reportedly. Neuro reconsult with Dr. Omer for question of need for lumbar puncture question of lupus cerebritis or other potential inflammatory cause. 07/03: dramatic improvement from last week. essentially normal MSE, c/o restlessness only. reported h/o same rxn to hydroxyzine, which was DCed today. will observe another day and potentially decrease zyprexa out of concern for akathisia. alternatively, could be residual kristie Sx. 07/04: less restless. some difficulty sleeping. requesting discharge sometime in the next week. willing to stay to work on sleep. transfer not medically indicated, will cancel request. 07/05: pt reports she's feeling back to her regular self and thinks she is ready for discharge. She explains that she was off her medications (Nadine) for months due to malfunctioning pill dispenser. She reports all AH and paranoid thoughts are resolved. She says all SI/HI full resolved as well. Pt reports sleeping well and just waiting for discharge. -continue current tx plan 07/06: continues to improve daily. 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 anxious to discharge. discussing discharge next week. labs ordered for tuesday night. 07/07: continue current management and treatment plan. 07/08: Continue current management and treatment plan. Consider Klonopin as a longer acting BZD 07/09: Start Klonopin 0.5 mg BID. AM and 3 PM. Asked patient to not use PRN Ativan in the afternoon to see if the Klonopin can provide relief but would keep as PRN in case. 07/10: essentially normal MSE. decrease HS ativan to 1 mg. add klonopin 0.5 BID PRN. D/C ativan PRN. lithium 0.54, VPA 27.4; unexpectedly low for both in light of higher levels previously on same doses. recheck tonight. planning to discharge tomorrow. 07/11: VPA and lithium remain inexplicably low. clinically pt is ready for discharge. discharged to care of parents. no safety concerns. meds reviewed, reconciled, prescribed. Time Spent with Patient Time attestation: Total time managing care of this patient today __35__ minutes. Discharge Plan Discharge Anticipated Discharge Date/Time: 07/11/24 11:00 Patient Disposition: Home, Self-Care Discharge Diagnosis: Bipolar I Disorder, MRE Kristie Referrals: [facility] Program: [facility] [Other] - 07/12/24 10:30 am Crisis Team: Hayley [Other] - 1 Week (You can call the above number 24/7 for support or to request a mobile assessment to your home in the event you notice worsening symptoms ) Physician,Unknown J [Primary Care Provider] - 1 Week (Patient and family will follow up with new provider. ) Discharge Medications: New trazodone 50 mg Tablet 50 mg PO BEDTIME PRN (Reason: Insomnia) 30 Days Qty: 30 0RF mycophenolate mofetil 250 mg Capsule 1,000 mg PO BID 30 Days Qty: 240 0RF clonazepam 0.5 mg Tablet 0.5 mg PO BID 30 Days Qty: 60 0RF olanzapine 10 mg Tablet 30 mg PO BEDTIME 30 Days Qty: 90 0RF lithium carbonate 300 mg Tablet Extended Release 600 mg PO BID 30 Days Qty: 120 0RF divalproex 500 mg Tablet Extended Release 24 Hr 1,000 mg PO BEDTIME 30 Days Qty: 60 0RF hydroxyzine HCl 25 mg Tablet 25 mg PO BID PRN (Reason: anxiety) 30 Days Qty: 60 0RF fludrocortisone 0.1 mg Tablet 0.1 mg PO DAILY 30 Days Qty: 30 0RF metoprolol succinate 50 mg tablet extended release 24 hr 50 mg PO DAILY 90 Days Qty: 90 0RF levothyroxine [Synthroid] 25 mcg tablet 25 mcg PO DAILY 90 Days Qty: 90 0RF Discharge Orders: Discharge Order (Routine); Ordered 07/11/24 Ordered By: Jorge Dorantes Diet: Advance to usual diet Activity on Discharge: As tolerated Stand Alone Forms: Patient Portal Discharge page, Community Support Print Language: Khmer Care Plan Goals: remain safe and stable in the outpatient treatment setting Health Concerns: auto-immune disorders liver function test abnormalities Plan of Treatment: take medications as prescribed, attend appointments as scheduled Assessment: not at imminent risk of harm to self or others Discharge Date/Time: 07/11/24 11:55
[2024-07-11] MEDS: Levothyroxine Sodium 25 MCG TABLET PO (06:31)
[2024-07-11 08:00] VITALS: BP 99/55; PULSE 86; RESP 14; TEMP 36.8; O2SAT 98
[2024-07-11 08:19] VITALS: BP 99/55; PULSE 86
[2024-07-11] MEDS: Metoprolol Succinate ER 50 MG TAB.ER.24H PO (08:19)
[2024-07-11] MEDS: Lithium Carbonate ER 300 MG TABLET.ER 600 MG PO (08:19)
[2024-07-11] MEDS: Fludrocortisone Acetate 0.1 MG TABLET PO (08:20)
[2024-07-11] MEDS: mycophenolate mofetiL 250 MG CAPSULE 1000 MG PO (08:20)
== END 2024-07-11 11:55 | disposition home or self-care (01) | DRG 751 ==
LOC: HO.ED 19:26 → HO.PADLT16 06-11 12:57
PROVIDERS: Internal Medicine; Physician Assistant; Physician Assistant Medical; Psychiatry & Neurology Psychiatry; Admitting Provider Psychiatry & Neurology Psychiatry; Emergency Provider Emergency Medicine Emergency Medical Services; Visit Provider Psychiatry & Neurology Psychiatry
DX: F23 Brief psychotic disorder (principal); G90.A Postural orthostatic tachycardia syndrome [POTS]; K75.4 Autoimmune hepatitis; M32.9 Systemic lupus erythematosus, unspecified; F31.9 Bipolar disorder, unspecified; K50.90 Crohn's disease, unspecified, without complications; I73.00 Raynaud's syndrome without gangrene; Z91.148 Patient's other noncompliance with medication regimen for other reason; Z20.822 Contact with and (suspected) exposure to COVID-19; Z79.899 Other long term (current) drug therapy
CPT/HCPCS: 36415; 70450; 70551; 71046; 72125; 74018; 80048; 80053; 80061; 80076; 80164; 80178; 80307; 81003; 82140; 82550; 82607; 82746; 82784; 82947; 83036; 83735; 84165; 84439; 84443; 84480; 84702; 85025; 85027; 85597; 85598; 85613; 85652; 85730; 86038; 86140; 86146; 86147; 86160; 86225; 86235; 86334; 86481; 86617; 86618; 86704; 86706; 86709; 86803; 87340; 87389; 87635; 93005; 99285; J1200; J1630; J2060; S9485

== ENCOUNTER → 2024-06-10 18:08 | Outpatient (BNV) | payer OTHER, SELFPAY | PROVIDERS: Emergency Provider Emergency Medicine Emergency Medical Services; Visit Provider Internal Medicine Cardiovascular Disease | DX: R00.0 Tachycardia, unspecified (principal) | CPT/HCPCS: 93010 ==

== ENCOUNTER 2024-06-11 12:51 | Outpatient (BNV) | payer OTHER, SELFPAY | END 2024-06-28 12:05 | PROVIDERS: Admitting Provider Psychiatry & Neurology Psychiatry; Emergency Provider Emergency Medicine Emergency Medical Services; Visit Provider Radiology Diagnostic Radiology | DX: F23 Brief psychotic disorder (principal) | CPT/HCPCS: 70551 ==

== ENCOUNTER 2024-06-11 12:51 | Outpatient (BNV) | payer OTHER, SELFPAY | END 2024-06-11 17:00 | PROVIDERS: Admitting Provider Psychiatry & Neurology Psychiatry; Emergency Provider Emergency Medicine Emergency Medical Services; Visit Provider Internal Medicine Cardiovascular Disease | DX: R00.0 Tachycardia, unspecified (principal) | CPT/HCPCS: 93010 ==

== ENCOUNTER → 2024-06-11 12:51 | Outpatient (BNV) | payer OTHER, SELFPAY | PROVIDERS: Admitting Provider Psychiatry & Neurology Psychiatry; Emergency Provider Emergency Medicine Emergency Medical Services; Visit Provider Psychiatry & Neurology Psychiatry | DX: F31.2 Bipolar disorder, current episode manic severe with psychotic features (principal); F23 Brief psychotic disorder; M32.9 Systemic lupus erythematosus, unspecified; K75.4 Autoimmune hepatitis | CPT/HCPCS: 99232 ==

== ENCOUNTER → 2024-06-11 12:51 | Outpatient (BNV) | payer OTHER, SELFPAY | PROVIDERS: Admitting Provider Psychiatry & Neurology Psychiatry; Emergency Provider Emergency Medicine Emergency Medical Services; Visit Provider Psychiatry & Neurology Neurology | DX: F23 Brief psychotic disorder (principal) | CPT/HCPCS: 99222 ==

== ENCOUNTER → 2024-06-11 12:51 | Outpatient (BNV) | payer OTHER, SELFPAY | PROVIDERS: Admitting Provider Psychiatry & Neurology Psychiatry; Emergency Provider Emergency Medicine Emergency Medical Services; Visit Provider Internal Medicine | DX: G90.A Postural orthostatic tachycardia syndrome [POTS] (principal) | CPT/HCPCS: 99222; 99499 ==

== ENCOUNTER → 2024-06-11 12:51 | Outpatient (BNV) | payer OTHER, SELFPAY | PROVIDERS: Admitting Provider Psychiatry & Neurology Psychiatry; Emergency Provider Emergency Medicine Emergency Medical Services; Visit Provider Psychiatry & Neurology Psychiatry | DX: F31.2 Bipolar disorder, current episode manic severe with psychotic features (principal); F23 Brief psychotic disorder; M32.9 Systemic lupus erythematosus, unspecified; K75.4 Autoimmune hepatitis | CPT/HCPCS: 99222; 99231; 99232; 99233; 99239 ==